=== PATIENT | female | born 1970 | race Two or more races ===

== ENCOUNTER 2017-02-11 07:14 | Emergency (ER) | payer MEDICAID ==
[~2017-02-11] VITALS: Ht 154.9 cm; Wt 63.5 kg
[~2017-02-11 07:14] MED LIST: ASPI81CH43; GEMF600T3; GLIP1TAB38; METF850T; PIOG30TA7; SIMV-8; TRIA25CA
[2017-02-11 07:25] VITALS: BP 153/96
[2017-02-11] MEDS ORDERED: KETOROLAC TROMETH 60MG/2ML VIAL IM ONE (08:45)
[2017-02-11] MEDS ORDERED: methylPREDNISolone SOD SUCC 125 MG/2 ML VL IM ONE (08:45)
== END 2017-02-11 09:31 | disposition home or self-care (01) ==
LOC: ER 07:14
DX: E11.65 Type 2 diabetes mellitus with hyperglycemia (principal); M79.662 Pain in left lower leg; M79.661 Pain in right lower leg; I10 Essential (primary) hypertension; R51 Headache; Z79.4 Long term (current) use of insulin; Z79.82 Long term (current) use of aspirin; E78.5 Hyperlipidemia, unspecified; Z87.440 Personal history of urinary (tract) infections; Z87.891 Personal history of nicotine dependence
CPT/HCPCS: 82962; 96372; 99284; J1885; J2930

== ENCOUNTER 2017-06-07 09:33 | Emergency (ER) | payer MEDICAID ==
[~2017-06-07] VITALS: Ht 157.5 cm; Wt 59.0 kg
[2017-06-07 13:17] VITALS: BP 103/73
[2017-06-07] MEDS ORDERED: CLINDAMYCIN 600 MG/4 ML VL IM ONE (13:30)
[2017-06-07] MEDS ORDERED: HYDROcodone-ACET 5/325MG TAB PO ONE (13:30)
== END 2017-06-07 13:53 | disposition home or self-care (01) ==
LOC: ER 09:33
DX: L02.11 Cutaneous abscess of neck (principal); E11.65 Type 2 diabetes mellitus with hyperglycemia; B99.8 Other infectious disease; Z79.4 Long term (current) use of insulin; E78.5 Hyperlipidemia, unspecified; Z87.891 Personal history of nicotine dependence; Z87.440 Personal history of urinary (tract) infections
CPT/HCPCS: 96372

== ENCOUNTER 2017-12-25 00:47 | Inpatient (IN) | payer SELFPAY ==
[~2017-12-25] VITALS: Ht 154.9 cm; Wt 69.0 kg
[~2017-12-25 00:47] MED LIST changes: -ASPI81CH43; +ASPI81CH43 PO; -GEMF600T3; +GEMF600T3 PO; -PIOG30TA7; +PIOG30TA8
[2017-12-25 01:29] LABS: Basophils # (auto) 0 uL; Basophils % (auto) 0.4 % (0.0-2.0); Eosinophils # (auto) 0.1 uL; Eosinophils % (auto) 0.9 % (0.0-7.0); Hematocrit 38.4 % (36.0-46.0); Hemoglobin 12.6 g/dL (12.2-16.2); Lymphocytes # (auto) 2.8 uL; Lymphocytes % (auto) 31.8 % (10.0-50.0); Mean Corpuscular Hemoglobin 27.1 pg (28.0-32.0); Mean Corpuscular Hgb Conc. 32.8 g/dL (32.0-36.0); Mean Corpuscular Volume 82.6 fL (80.0-100.0); Monocytes # (auto) 0.4 uL; Monocytes % (auto) 4.7 % (0.0-12.0); Neutrophils # (auto) 5.4 uL; Neutrophils % (auto) 62.2 % (37.0-80.0); Nucleated Red Blood Cells % 0.1 %; Platelet Count (auto) 301 10^3/uL (140-450); Red Blood Cells 4.65 10^6/uL (4.0-5.20); Red Cell Distribution Width 14.7 % (11.8-14.3); White Blood Cell 8.7 10^3/uL (4.4-10.8)
[2017-12-25 01:32] LABS: Alanine Aminotransferase 18 U/L (13-56); Anion Gap 12 (5-15); Aspartate Aminotransferase 12 U/L (15-37); BUN/Creatinine Ratio 20.8; Blood Urea Nitrogen 26 mg/dL (7-18); Calcium 9.1 mg/dL (8.5-10.1); Carbon Dioxide 26 mmol/L (21-32); Chloride 91 mmol/L (98-107); GFR African American 59 mL/min; GFR Non-African American 49 mL/min; Potassium 3.9 mmol/L (3.5-5.1); Sodium 129 mmol/L (136-145)
[2017-12-25 01:36] LABS: Alkaline Phosphatase 136 U/L (45-117); Bilirubin, Total 0.4 mg/dL (0.2-1.0); Glucose 582 mg/dL (74-106); Total Protein 7.7 g/dL (6.4-8.2)
[2017-12-25] MEDS ORDERED: InsuLIN REG 1unit/0.01ml Soln (100units/ml) IV ONE (02:15)
[2017-12-25] MEDS ORDERED: SODIUM CHLORIDE 0.9% 2,000 ML IV ONE (02:15)
[2017-12-25] MEDS ORDERED: KETOROLAC TROMETH 30 MG/ML 1ML VIAL IV ONE (02:30)
[2017-12-25] MEDS ORDERED: ONDANSETRON HCL 4 MG/2 ML VIAL IV ONE (02:30)
[2017-12-25 02:41] LABS: Urine Bacteria FEW /hpf (None Seen); Urine Blood Negative /uL (Negative); Urine Specific Gravity 1.015 (1.001-1.035); Urine WBC 17 /hpf (0 - 5)
[2017-12-25] MEDS ORDERED: SODIUM CHLORIDE 0.9% 1,000 ML IV ONE (02:45)
[2017-12-25] MEDS ORDERED: LEVOFLOXACIN 750MG 150 ML IV ONE (03:00)
[2017-12-25] MEDS ORDERED: SODIUM CHLORIDE 0.9% 1,000 ML IV SCH (06:45)
[2017-12-25] MEDS ORDERED: TEMAZEPAM 15 MG CAP PO PRN (06:45)
[2017-12-25] MEDS ORDERED: ACETAMINOPHEN 325 MG TAB PO PRN (06:45)
[2017-12-25] MEDS ORDERED: DEXTROSE (50%) 50ML SYRG IV PRN ×2 (06:45→14:00)
[2017-12-25] MEDS: MORPHINE SULFATE 4 MG/ML SYR/VIAL IV PRN ×2 (07:03→18:03)
[2017-12-25] MEDS: ACCU-CHEK COMFORT CURVE STRIP VI SCH ×4 (07:47→21:56)
[2017-12-25] MEDS: InsuLIN REG 1unit/0.01ml Soln (100units/ml) SC SCH ×4 (07:51→21:56)
[2017-12-25] MEDS ORDERED: INSLISPI SC ×2 (08:41)
[2017-12-25 09:00] VITALS: BP 100/63
[2017-12-25] MEDS: cefTRIAXone 1GM/10ml IVPUSH 10 ML IV SCH (09:53)
[2017-12-25] MEDS: ENOXAPARIN SOD 40 MG/0.4 ML SYRINGE SC SCH (09:57)
[2017-12-25] MEDS: TRIAMTERENE/HCTZ 37.5/25 MG CAP PO SCH (09:58)
[2017-12-25] MEDS: LISINOPRIL 5 MG TAB PO SCH (09:59)
[2017-12-25] MEDS: GEMFIBROZIL 600 MG TAB PO SCH ×2 (09:59→21:56)
[2017-12-25] MEDS: FAMOTIDINE 20 MG TAB PO SCH (10:00)
[2017-12-25 13:02] VITALS: BP 129/71
[2017-12-25] MEDS: HYDROcodone-ACET 5/325MG TAB PO PRN ×2 (16:53→23:57)
[2017-12-25 17:00] VITALS: BP 71/45
[2017-12-25] MEDS: SODIUM CHLORIDE 0.9% 1,000 ML IV SCH ×3 (17:13→21:00)
[2017-12-25 21:48] VITALS: BP 80/55
[2017-12-25] MEDS: ATORVASTATIN 20 MG TAB PO SCH (21:56)
[2017-12-26 05:00] VITALS: BP 80/55
[2017-12-26] MEDS: MORPHINE SULFATE 4 MG/ML SYR/VIAL IV PRN (06:00)
[2017-12-26 06:23] LABS: Basophils # (auto) 0.1 uL; Basophils % (auto) 0.6 % (0.0-2.0); Eosinophils # (auto) 0.3 uL; Eosinophils % (auto) 1.9 % (0.0-7.0); Hematocrit 29.5 % (36.0-46.0); Hemoglobin 9.9 g/dL (12.2-16.2); Lymphocytes # (auto) 2.2 uL; Lymphocytes % (auto) 14.5 % (10.0-50.0); Mean Corpuscular Hemoglobin 27.9 pg (28.0-32.0); Mean Corpuscular Hgb Conc. 33.5 g/dL (32.0-36.0); Mean Corpuscular Volume 83.2 fL (80.0-100.0); Monocytes # (auto) 0.9 uL; Neutrophils # (auto) 11.4 uL; Nucleated Red Blood Cells % 0.1 %; Platelet Count (auto) 172 10^3/uL (140-450); Red Blood Cells 3.55 10^6/uL (4.0-5.20); Red Cell Distribution Width 15.2 % (11.8-14.3); White Blood Cell 14.8 10^3/uL (4.4-10.8)
[2017-12-26 06:27] LABS: BUN/Creatinine Ratio 27.7; Calcium 7.6 mg/dL (8.5-10.1); Potassium 3.8 mmol/L (3.5-5.1)
[2017-12-26 06:29] LABS: Bilirubin, Total 0.3 mg/dL (0.2-1.0); Total Protein 6.1 g/dL (6.4-8.2)
[2017-12-26] MEDS: ACCU-CHEK COMFORT CURVE STRIP VI SCH ×4 (07:13→22:00)
[2017-12-26] MEDS: InsuLIN REG 1unit/0.01ml Soln (100units/ml) SC SCH ×4 (07:19→22:00)
[2017-12-26] MEDS: cefTRIAXone 1GM/10ml IVPUSH 10 ML IV SCH (08:59)
[2017-12-26 09:00] VITALS: BP 90/59
[2017-12-26] MEDS: GEMFIBROZIL 600 MG TAB PO SCH ×2 (09:32→21:09)
[2017-12-26] MEDS: FAMOTIDINE 20 MG TAB PO SCH ×2 (09:32→21:08)
[2017-12-26] MEDS: ENOXAPARIN SOD 40 MG/0.4 ML SYRINGE SC SCH (09:32)
[2017-12-26] MEDS: TRIAMTERENE/HCTZ 37.5/25 MG CAP PO SCH (10:00)
[2017-12-26] MEDS: LISINOPRIL 5 MG TAB PO SCH (10:00)
[2017-12-26] MEDS: SODIUM CHLORIDE 0.9% 1,000 ML IV SCH ×3 (11:00→20:45)
[2017-12-26 12:39] VITALS: BP 89/61
[2017-12-26] MEDS ORDERED: SODIUM CHLORIDE 0.9% 1,000 ML IV ONE (12:45)
[2017-12-26] MEDS ORDERED: LEVOFLOXACIN 500MG 100 ML IV ONE (12:45)
[2017-12-26 17:10] VITALS: BP 111/78
[2017-12-26 20:00] VITALS: BP 90/59
[2017-12-26] MEDS: HYDROcodone-ACET 7.5/325MG TAB PO PRN (21:10)
[2017-12-26] MEDS: ATORVASTATIN 20 MG TAB PO SCH (21:10)
[2017-12-26 21:59] VITALS: BP 137/86
[2017-12-27] MEDS: SODIUM CHLORIDE 0.9% 1,000 ML IV SCH ×3 (02:02→20:03)
[2017-12-27 05:35] VITALS: BP 140/58
[2017-12-27] MEDS ORDERED: metroNIDAZOLE 500MG/100ML 100 ML IV ONE (06:30)
[2017-12-27] MEDS: InsuLIN REG 1unit/0.01ml Soln (100units/ml) SC SCH ×4 (07:06→21:38)
[2017-12-27] MEDS: ACCU-CHEK COMFORT CURVE STRIP VI SCH ×4 (07:06→21:39)
[2017-12-27] MEDS: cefTRIAXone 1GM/10ml IVPUSH 10 ML IV SCH (08:55)
[2017-12-27 09:00] VITALS: BP 150/85
[2017-12-27 09:11] LABS: Basophils # (auto) 0 uL; Basophils % (auto) 0.4 % (0.0-2.0); Eosinophils # (auto) 0.1 uL; Lymphocytes # (auto) 2.6 uL; Mean Corpuscular Hemoglobin 26.9 pg (28.0-32.0); Monocytes # (auto) 0.6 uL; Red Blood Cells 4.08 10^6/uL (4.0-5.20); Red Cell Distribution Width 15.1 % (11.8-14.3)
[2017-12-27 09:12] LABS: Eosinophils % (auto) 0.9 % (0.0-7.0); Lymphocytes % (auto) 21.1 % (10.0-50.0); Mean Corpuscular Hgb Conc. 32.3 g/dL (32.0-36.0); Mean Corpuscular Volume 83.2 fL (80.0-100.0); Neutrophils # (auto) 8.9 uL; Neutrophils % (auto) 72.6 % (37.0-80.0); Platelet Count (auto) 204 10^3/uL (140-450); White Blood Cell 12.3 10^3/uL (4.4-10.8)
[2017-12-27] MEDS: ONDANSETRON HCL 4 MG/2 ML VIAL IV PRN ×2 (10:07→21:39)
[2017-12-27] MEDS: ENOXAPARIN SOD 40 MG/0.4 ML SYRINGE SC SCH (10:24)
[2017-12-27] MEDS: LEVOFLOXACIN 500MG 100 ML IV SCH (10:24)
[2017-12-27] MEDS: TRIAMTERENE/HCTZ 37.5/25 MG CAP PO SCH (10:25)
[2017-12-27] MEDS: GEMFIBROZIL 600 MG TAB PO SCH ×2 (10:25→21:38)
[2017-12-27] MEDS: LISINOPRIL 5 MG TAB PO SCH (10:25)
[2017-12-27 13:00] VITALS: BP 157/99
[2017-12-27] MEDS: metroNIDAZOLE 500MG/100ML 100 ML IV SCH ×2 (14:16→21:38)
[2017-12-27 17:00] VITALS: BP 127/87
[2017-12-27] MEDS: ATORVASTATIN 20 MG TAB PO SCH (21:38)
[2017-12-27] MEDS: MORPHINE SULFATE 4 MG/ML SYR/VIAL IV PRN (21:39)
[2017-12-27 22:00] VITALS: BP 133/88
[2017-12-28] MEDS: SODIUM CHLORIDE 0.9% 1,000 ML IV SCH ×3 (04:21→17:55)
[2017-12-28] MEDS: metroNIDAZOLE 500MG/100ML 100 ML IV SCH ×3 (05:37→21:41)
[2017-12-28 05:39] VITALS: BP 106/66
[2017-12-28] MEDS: InsuLIN REG 1unit/0.01ml Soln (100units/ml) SC SCH ×4 (06:30→21:49)
[2017-12-28] MEDS: ACCU-CHEK COMFORT CURVE STRIP VI SCH ×4 (06:30→21:48)
[2017-12-28 09:00] VITALS: BP 114/73
[2017-12-28] MEDS: TRIAMTERENE/HCTZ 37.5/25 MG CAP PO SCH (09:24)
[2017-12-28] MEDS: cefTRIAXone 1GM/10ml IVPUSH 10 ML IV SCH (09:24)
[2017-12-28] MEDS: LEVOFLOXACIN 500MG 100 ML IV SCH (09:24)
[2017-12-28] MEDS: FAMOTIDINE 20 MG TAB PO SCH (09:24)
[2017-12-28] MEDS: GEMFIBROZIL 600 MG TAB PO SCH ×2 (09:24→21:41)
[2017-12-28] MEDS: ENOXAPARIN SOD 40 MG/0.4 ML SYRINGE SC SCH (09:25)
[2017-12-28] MEDS: LISINOPRIL 5 MG TAB PO SCH (09:25)
[2017-12-28 13:00] VITALS: BP 126/81
[2017-12-28 13:40] LABS: INR 1.01 (0.9-1.15); Partial Thromboplastin Time 28.2 sec (22.64-33.71)
[2017-12-28] MEDS: ONDANSETRON HCL 4 MG/2 ML VIAL IV PRN (17:55)
[2017-12-28 18:05] VITALS: BP 130/81
[2017-12-28] MEDS: ATORVASTATIN 20 MG TAB PO SCH (21:40)
[2017-12-28] MEDS: MORPHINE SULFATE 4 MG/ML SYR/VIAL IV PRN (21:44)
[2017-12-28 22:36] VITALS: BP 143/93
[2017-12-29 05:24] VITALS: BP 102/68
[2017-12-29] MEDS: metroNIDAZOLE 500MG/100ML 100 ML IV SCH ×3 (05:26→21:41)
[2017-12-29] MEDS: SODIUM CHLORIDE 0.9% 1,000 ML IV SCH ×3 (05:27→20:45)
[2017-12-29 05:34] LABS: Basophils # (auto) 0 uL; Basophils % (auto) 0.4 % (0.0-2.0); Eosinophils # (auto) 0.1 uL; Eosinophils % (auto) 1.2 % (0.0-7.0); Hematocrit 34.8 % (36.0-46.0); Hemoglobin 11.4 g/dL (12.2-16.2); Lymphocytes # (auto) 1.8 uL; Mean Corpuscular Hemoglobin 27.2 pg (28.0-32.0); Mean Corpuscular Hgb Conc. 32.9 g/dL (32.0-36.0); Mean Corpuscular Volume 82.9 fL (80.0-100.0); Monocytes # (auto) 0.7 uL; Neutrophils # (auto) 5.5 uL; Neutrophils % (auto) 67.4 % (37.0-80.0); Nucleated Red Blood Cells % 0.1 %; Platelet Count (auto) 246 10^3/uL (140-450); Red Blood Cells 4.19 10^6/uL (4.0-5.20); Red Cell Distribution Width 14.5 % (11.8-14.3); White Blood Cell 8.1 10^3/uL (4.4-10.8)
[2017-12-29 05:56] LABS: Albumin 2.1 g/dL (3.4-5.0); BUN/Creatinine Ratio 14.9; Bilirubin, Total 0.4 mg/dL (0.2-1.0); Calcium 8.4 mg/dL (8.5-10.1); Potassium 3.9 mmol/L (3.5-5.1); Total Protein 6.3 g/dL (6.4-8.2)
[2017-12-29] MEDS: InsuLIN REG 1unit/0.01ml Soln (100units/ml) SC SCH ×4 (06:19→21:42)
[2017-12-29] MEDS: ACCU-CHEK COMFORT CURVE STRIP VI SCH ×4 (06:20→21:42)
[2017-12-29] MEDS ORDERED: ceFAZolin 1GM/100ML 100 ML IV ONE (06:51)
[2017-12-29] MEDS ORDERED: LIDOCAINE 1% (LOCAL ANESTH.) PF 5ml SDV ONE (07:13)
[2017-12-29] MEDS ORDERED: SUCCINYLCHOLINE CHLORIDE 20 MG/ML 10ML VIAL IV ONE (07:14)
[2017-12-29] MEDS ORDERED: MIDAZOLAM HCL 1MG/1ML-2 ML VIAL ONE (07:15)
[2017-12-29] MEDS ORDERED: PROPOFOL 10 MG/ML 20 ML IV ONE (07:21)
[2017-12-29] MEDS ORDERED: ROCURONIUM 10MG/ML 10ML VIAL IV ONE (07:21)
[2017-12-29] MEDS ORDERED: fentaNYL CITRATE 100 MCG/2 ML VL ONE (07:31)
[2017-12-29] MEDS ORDERED: POVIDONE IODINE 10 % TOPICAL OINT 30GM TOP ONE (07:32)
[2017-12-29] MEDS ORDERED: NALOXONE HCL 0.4 MG/ML VIAL IV PRN (07:45)
[2017-12-29] MEDS ORDERED: ONDANSETRON HCL 4 MG/2 ML VIAL IV ONE (07:45)
[2017-12-29] MEDS ORDERED: ACCU-CHEK COMFORT CURVE STRIP VI ONE (07:45)
[2017-12-29] MEDS ORDERED: GLYCOPYRROLATE 0.2 MG/ML 1ML VIAL ONE (07:50)
[2017-12-29] MEDS ORDERED: NEOSTIGMINE 1 MG/ML INJ (10mg/10ML VIAL) ONE (07:50)
[2017-12-29] MEDS ORDERED: KETOROLAC TROMETH 30 MG/ML 1ML VIAL ONE (07:53)
[2017-12-29] MEDS: MORPHINE SULFATE 4 MG/ML SYR/VIAL IV PRN ×4 (08:14→20:09)
[2017-12-29] MEDS: LEVOFLOXACIN 500MG 100 ML IV SCH (10:06)
[2017-12-29] MEDS: ENOXAPARIN SOD 40 MG/0.4 ML SYRINGE SC SCH (10:06)
[2017-12-29] MEDS: cefTRIAXone 1GM/10ml IVPUSH 10 ML IV SCH (10:06)
[2017-12-29] MEDS: GEMFIBROZIL 600 MG TAB PO SCH ×2 (10:09→21:42)
[2017-12-29] MEDS: FAMOTIDINE 20 MG TAB PO SCH (10:09)
[2017-12-29] MEDS: LISINOPRIL 5 MG TAB PO SCH (10:09)
[2017-12-29] MEDS: TRIAMTERENE/HCTZ 37.5/25 MG CAP PO SCH (10:09)
[2017-12-29] MEDS: HYDROcodone-ACET 7.5/325MG TAB PO PRN ×2 (10:11→14:36)
[2017-12-29 12:47] VITALS: BP 105/76
[2017-12-29 16:32] VITALS: BP 110/74
[2017-12-29] MEDS ORDERED: METF-929 PO (17:17)
[2017-12-29] MEDS ORDERED: GLIP-115 PO (17:17)
[2017-12-29] MEDS ORDERED: HYDR25TA4 PO (17:17)
[2017-12-29] MEDS ORDERED: INSLANTI SC (17:17)
[2017-12-29] MEDS ORDERED: FENO1TAB42 PO (17:22)
[2017-12-29] MEDS ORDERED: ATOR1TAB PO (17:22)
[2017-12-29] MEDS ORDERED: LISI-275 PO (17:22)
[2017-12-29] MEDS: ONDANSETRON HCL 4 MG/2 ML VIAL IV PRN (20:09)
[2017-12-29] MEDS: ATORVASTATIN 20 MG TAB PO SCH (21:41)
[2017-12-29 22:00] VITALS: BP 119/80
[2017-12-30] MEDS: SODIUM CHLORIDE 0.9% 1,000 ML IV SCH ×3 (05:24→11:35)
[2017-12-30] MEDS: metroNIDAZOLE 500MG/100ML 100 ML IV SCH ×2 (05:31→14:00)
[2017-12-30 05:33] VITALS: BP 108/74
[2017-12-30 05:41] LABS: Platelet Count (auto) 254 10^3/uL (140-450)
[2017-12-30 05:44] LABS: Hematocrit 32.9 % (36.0-46.0); Hemoglobin 10.8 g/dL (12.2-16.2); Mean Corpuscular Hemoglobin 27.4 pg (28.0-32.0); Mean Corpuscular Hgb Conc. 32.9 g/dL (32.0-36.0); Mean Corpuscular Volume 83.4 fL (80.0-100.0); Red Blood Cells 3.94 10^6/uL (4.0-5.20); White Blood Cell 9.1 10^3/uL (4.4-10.8)
[2017-12-30 05:51] LABS: Basophils % (manual) 0 (0.0-2.0); Blast Cells 0; Eosinophils % (manual) 0 (0-7); Metamyelocytes % 0; Myelocytes % 0; Promyelocytes % 0; Reactive Lymphocytes 0
[2017-12-30 06:10] LABS: BUN/Creatinine Ratio 12.5; Bilirubin, Total 0.3 mg/dL (0.2-1.0); Potassium 3.7 mmol/L (3.5-5.1); Total Protein 5.9 g/dL (6.4-8.2)
[2017-12-30] MEDS: ACCU-CHEK COMFORT CURVE STRIP VI SCH ×2 (06:20→11:34)
[2017-12-30] MEDS: InsuLIN REG 1unit/0.01ml Soln (100units/ml) SC SCH ×2 (06:20→11:34)
[2017-12-30 06:56] LABS: Band Neutrophils % (manual) 1; Lymphocytes % (manual) 25 (10.0-50.0); Monocytes % (manual) 13 (0-12)
[2017-12-30] MEDS: MORPHINE SULFATE 4 MG/ML SYR/VIAL IV PRN (07:51)
[2017-12-30 08:53] VITALS: BP 136/84
[2017-12-30] MEDS: ENOXAPARIN SOD 40 MG/0.4 ML SYRINGE SC SCH (09:36)
[2017-12-30] MEDS: TRIAMTERENE/HCTZ 37.5/25 MG CAP PO SCH (09:36)
[2017-12-30] MEDS: GEMFIBROZIL 600 MG TAB PO SCH (09:36)
[2017-12-30] MEDS: LISINOPRIL 5 MG TAB PO SCH (09:36)
[2017-12-30] MEDS: LEVOFLOXACIN 500MG 100 ML IV SCH (09:37)
[2017-12-30] MEDS: FAMOTIDINE 20 MG TAB PO SCH (09:37)
[2017-12-30] MEDS ORDERED: HYDR-4683 PO (09:53)
[2017-12-30] MEDS ORDERED: AMOX250C3 PO (09:53)
[2017-12-30] MEDS ORDERED: IBUP800T24 PO (09:53)
[2017-12-30] MEDS ORDERED: DULO20CA PO (09:53)
[2017-12-30] MEDS ORDERED: AMIT25TA9 PO (09:53)
[2017-12-30 12:40] VITALS: BP 137/83
[2017-12-30] MEDS: HYDROcodone-ACET 7.5/325MG TAB PO PRN (14:31)
[2017-12-30 16:45] VITALS: BP 151/97
== END 2017-12-30 18:00 | disposition home or self-care (01) | DRG 854 ==
LOC: EDBD 00:47 → ER 00:47 → OVERFLOW 00:48 → WEST WING 08:02
PROVIDERS: ADMIT Nurse Practitioner; ATTEND Family Medicine
PROC: 0FT44ZZ Resection of Gallbladder, Percutaneous Endoscopic Approach (ICD-10-PCS; principal; 2017-12-29 07:14)
DX: A41.9 Sepsis, unspecified organism (principal); K80.00 Calculus of gallbladder with acute cholecystitis without obstruction; E87.1 Hypo-osmolality and hyponatremia; N12 Tubulo-interstitial nephritis, not specified as acute or chronic; I70.90 Unspecified atherosclerosis; E11.65 Type 2 diabetes mellitus with hyperglycemia; E78.00 Pure hypercholesterolemia, unspecified; E86.0 Dehydration; I10 Essential (primary) hypertension; K42.9 Umbilical hernia without obstruction or gangrene; K59.00 Constipation, unspecified; Z79.4 Long term (current) use of insulin; Z83.3 Family history of diabetes mellitus; Z87.891 Personal history of nicotine dependence; Z91.14 Patient's other noncompliance with medication regimen
CPT/HCPCS: 36415; 70450; 71045; 74176; 76705; 78226; 80053; 81001; 81025; 82010; 82962; 83036; 83605; 83930; 84484; 85007; 85025; 85027; 85610; 85730; 86850; 86900; 86901; 87040; 87086; 87088; 87186; 93005; 96361; 96365; 96375; 97530; J0330; J0690; J1815; J1885; J1956; J2250; J2405; J2704; J3490

== ENCOUNTER 2018-01-23 07:00 | Emergency (ER) | payer SELFPAY ==
[~2018-01-23] VITALS: Ht 157.5 cm; Wt 59.0 kg
[~2018-01-23 07:00] MED LIST changes: +AMIT25TA9 PO; +AMOX250C3 PO; +ATOR1TAB PO; +DULO20CA PO; +FENO1TAB42 PO; +GLIP-115 PO; -GLIP1TAB38; +HYDR-4683 PO; +HYDR25TA4 PO; +IBUP800T24 PO; +INSLANTI SC; +INSLISPI SC; +LISI-275 PO; +METF-929 PO; -METF850T; -PIOG30TA8; -SIMV-8; -TRIA25CA
[2018-01-23 07:49] VITALS: BP 109/84
[2018-01-23 07:59] LABS: Basophils # (auto) 0 uL; Basophils % (auto) 0.4 % (0.0-2.0); Eosinophils # (auto) 0.3 uL; Eosinophils % (auto) 2.7 % (0.0-7.0); Hemoglobin 13.4 g/dL (12.2-16.2); Lymphocytes # (auto) 4.2 uL; Lymphocytes % (auto) 44.8 % (10.0-50.0); Mean Corpuscular Hemoglobin 27.3 pg (28.0-32.0); Mean Corpuscular Hgb Conc. 32.7 g/dL (32.0-36.0); Mean Corpuscular Volume 83.4 fL (80.0-100.0); Monocytes # (auto) 0.6 uL; Neutrophils # (auto) 4.3 uL; Neutrophils % (auto) 46.1 % (37.0-80.0); Nucleated Red Blood Cells % 0.1 %; Platelet Count (auto) 285 10^3/uL (140-450); Red Blood Cells 4.92 10^6/uL (4.0-5.20); Red Cell Distribution Width 14.6 % (11.8-14.3); White Blood Cell 9.3 10^3/uL (4.4-10.8)
[2018-01-23] MEDS ORDERED: HYDROcodone-ACET 10/325MG TAB PO ONE (08:00)
[2018-01-23 08:04] LABS: Urine Bacteria FEW /hpf (None Seen); Urine Blood Negative /uL (Negative); Urine Specific Gravity 1.012 (1.001-1.035); Urine WBC 98 /hpf (0 - 5)
[2018-01-23 08:35] LABS: Albumin 3.4 g/dL (3.4-5.0); Calcium 9.7 mg/dL (8.5-10.1); Potassium 4.1 mmol/L (3.5-5.1)
[2018-01-23 08:41] LABS: BUN/Creatinine Ratio 23.1; Bilirubin, Total 0.4 mg/dL (0.2-1.0); Total Protein 7.8 g/dL (6.4-8.2)
== END 2018-01-23 10:15 | disposition home or self-care (01) ==
LOC: ER 07:00
DX: N39.0 Urinary tract infection, site not specified (principal); E78.5 Hyperlipidemia, unspecified; I10 Essential (primary) hypertension; E11.9 Type 2 diabetes mellitus without complications; Z79.4 Long term (current) use of insulin; Z79.82 Long term (current) use of aspirin; Z87.891 Personal history of nicotine dependence
CPT/HCPCS: 36415; 74176; 80053; 81001; 83605; 85025; 94761

== ENCOUNTER 2018-01-29 11:02 | Inpatient (IN) | payer MEDICAID ==
[~2018-01-29] VITALS: Ht 157.5 cm; Wt 66.9 kg
[2018-01-29] MEDS ORDERED: SODIUM CHLORIDE 0.9% 500 ML IVB ONE (11:20)
[2018-01-29] MEDS ORDERED: ONDANSETRON HCL 4 MG/2 ML VIAL IV ONE (11:30)
[2018-01-29] MEDS ORDERED: KETOROLAC TROMETH 30 MG/ML 1ML VIAL IV ONE (11:30)
[2018-01-29 11:42] LABS: Hematocrit 39.8 % (36.0-46.0); Hemoglobin 13.1 g/dL (12.2-16.2); Mean Corpuscular Hemoglobin 27.4 pg (28.0-32.0); Mean Corpuscular Hgb Conc. 32.9 g/dL (32.0-36.0); Mean Corpuscular Volume 83.3 fL (80.0-100.0); Platelet Count (auto) 322 10^3/uL (140-450); Red Blood Cells 4.78 10^6/uL (4.0-5.20); Red Cell Distribution Width 14.7 % (11.8-14.3)
[2018-01-29 11:58] LABS: Band Neutrophils % (manual) 0; Basophils % (manual) 0 (0.0-2.0); Blast Cells 0; Eosinophils % (manual) 7 (0-7); Lymphocytes % (manual) 38 (10.0-50.0); Metamyelocytes % 0; Monocytes % (manual) 1 (0-12); Myelocytes % 0; Promyelocytes % 0; Reactive Lymphocytes 0
[2018-01-29 12:03] LABS: Albumin 3.9 g/dL (3.4-5.0); Bilirubin, Total 0.5 mg/dL (0.2-1.0); Calcium 9.7 mg/dL (8.5-10.1); Magnesium 2.1 mg/dL (1.6-2.6); Potassium 4.4 mmol/L (3.5-5.1); Total Protein 7.7 g/dL (6.4-8.2)
[2018-01-29 13:01] LABS: Urine Bacteria FEW /hpf (None Seen); Urine Blood 2+ /uL (Negative); Urine Specific Gravity 1.009 (1.001-1.035); Urine WBC 94 /hpf (0 - 5); Urine WBC Clumps PRESENT /hpf (None Seen)
[2018-01-29] MEDS ORDERED: TEMAZEPAM 15 MG CAP PO PRN (13:15)
[2018-01-29] MEDS ORDERED: NITROGLYCERIN 0.4 MG SL TAB SL PRN (13:15)
[2018-01-29] MEDS ORDERED: MORPHINE SULFATE 8mg/ml INJ SDV IV PRN (13:15)
[2018-01-29] MEDS ORDERED: LORazepam 0.5 MG TAB PO PRN (13:15)
[2018-01-29] MEDS ORDERED: PROMETHAZINE HCL 25 MG/ML 1ML IV PRN (13:15)
[2018-01-29] MEDS ORDERED: MORPHINE SULF(PF) 0.5MG/ML 10ML VIAL IV PRN (13:15)
[2018-01-29] MEDS ORDERED: ACETAMINOPHEN 500 MG TAB PO PRN (13:15)
[2018-01-29] MEDS ORDERED: cefTRIAXone 1GM/10ml IVPUSH 10 ML IV ONE (13:15)
[2018-01-29] MEDS ORDERED: DEXTROSE (50%) 50ML SYRG IV PRN (13:15)
[2018-01-29] MEDS: SODIUM CHLORIDE 0.9% 1,000 ML IV SCH ×3 (13:22→17:46)
[2018-01-29 13:45] LABS: Amylase 96 U/L (25-115); Lipase 320 U/L (73-393)
[2018-01-29] MEDS: HYDROcodone-ACET 5/325MG TAB PO PRN ×2 (14:15→20:59)
[2018-01-29] MEDS ORDERED: MEPERIDINE HCL (25 MG/ML) 1ML VIAL IV PRN (16:45)
[2018-01-29] MEDS: InsuLIN REG 1unit/0.01ml Soln (100units/ml) SC SCH ×2 (17:00→21:32)
[2018-01-29] MEDS: ACCU-CHEK COMFORT CURVE STRIP VI SCH ×2 (17:00→21:32)
[2018-01-29] MEDS: ATORVASTATIN 20 MG TAB PO SCH (21:54)
[2018-01-29] MEDS: AMITRIPTYLINE HCL 25 MG TAB PO SCH (21:54)
[2018-01-29] MEDS: INSULIN LANTUS (GLARGINE) 1 /0.01ml (100units/ml) SC SCH ×2 (21:55→22:00)
[2018-01-29 22:00] VITALS: BP 132/84
[2018-01-29 23:00] VITALS: BP 132/93
[2018-01-30] VITALS (8 sets, daily range): BP systolic 125–140; BP diastolic 81–107
[2018-01-30 06:12] LABS: Basophils # (auto) 0 uL; Basophils % (auto) 0.7 % (0.0-2.0); Eosinophils # (auto) 1.1 uL; Eosinophils % (auto) 15.2 % (0.0-7.0); Hematocrit 34.6 % (36.0-46.0); Hemoglobin 11.7 g/dL (12.2-16.2); Lymphocytes # (auto) 3.3 uL; Lymphocytes % (auto) 44.8 % (10.0-50.0); Mean Corpuscular Hemoglobin 28.3 pg (28.0-32.0); Mean Corpuscular Hgb Conc. 33.9 g/dL (32.0-36.0); Mean Corpuscular Volume 83.5 fL (80.0-100.0); Monocytes # (auto) 0.4 uL; Monocytes % (auto) 5.4 % (0.0-12.0); Neutrophils # (auto) 2.5 uL; Neutrophils % (auto) 33.9 % (37.0-80.0); Nucleated Red Blood Cells % 0.1 %; Platelet Count (auto) 278 10^3/uL (140-450); Red Blood Cells 4.14 10^6/uL (4.0-5.20); Red Cell Distribution Width 14.8 % (11.8-14.3); White Blood Cell 7.3 10^3/uL (4.4-10.8)
[2018-01-30 06:31] LABS: Albumin 2.9 g/dL (3.4-5.0); Calcium 8.3 mg/dL (8.5-10.1)
[2018-01-30 06:33] LABS: BUN/Creatinine Ratio 24.7
[2018-01-30 06:36] LABS: Bilirubin, Total 0.4 mg/dL (0.2-1.0); Total Protein 6.3 g/dL (6.4-8.2)
[2018-01-30] MEDS: InsuLIN REG 1unit/0.01ml Soln (100units/ml) SC SCH ×4 (07:00→21:48)
[2018-01-30] MEDS: ACCU-CHEK COMFORT CURVE STRIP VI SCH ×4 (07:09→21:47)
[2018-01-30] MEDS: HYDROcodone-ACET 5/325MG TAB PO PRN (07:11)
[2018-01-30] MEDS: DULOXETINE 20 MG PO SCH (10:00)
[2018-01-30] MEDS: Fenofibrate 145MG TAB PO SCH (10:00)
[2018-01-30] MEDS ORDERED: PATIENTS OWN MEDICATION (Atorvastatin Calcium 80 MG) PO SCH (10:00)
[2018-01-30] MEDS: GEMFIBROZIL 600 MG TAB PO SCH (10:42)
[2018-01-30] MEDS: cefTRIAXone 1GM/10ml IVPUSH 10 ML IV SCH (10:42)
[2018-01-30] MEDS: ASPirin 81 mg TAB PO SCH (10:43)
[2018-01-30] MEDS: HCTZ 25 MG TAB PO SCH (10:43)
[2018-01-30] MEDS: PANTOPRAZOLE 40 MG TAB PO SCH (10:44)
[2018-01-30] MEDS: glipiZIDE 5 MG TAB PO SCH (10:54)
[2018-01-30] MEDS: OXYCODONE W/ ACETAMINOPHEN 5/325MG TABLET PO PRN ×2 (13:40→21:47)
[2018-01-30] MEDS: SODIUM CHLORIDE 0.9% 1,000 ML IV SCH ×2 (19:11→22:03)
[2018-01-30] MEDS: AMITRIPTYLINE HCL 25 MG TAB PO SCH (21:47)
[2018-01-30] MEDS: ATORVASTATIN 20 MG TAB PO SCH (21:47)
[2018-01-30] MEDS: INSULIN LANTUS (GLARGINE) 1 /0.01ml (100units/ml) SC SCH (21:47)
[2018-01-31] VITALS (7 sets, daily range): BP systolic 106–151; BP diastolic 63–88
[2018-01-31] MEDS: OXYCODONE W/ ACETAMINOPHEN 5/325MG TABLET PO PRN ×3 (06:23→21:51)
[2018-01-31] MEDS: SODIUM CHLORIDE 0.9% 1,000 ML IV SCH (06:29)
[2018-01-31] MEDS: InsuLIN REG 1unit/0.01ml Soln (100units/ml) SC SCH ×4 (06:30→21:52)
[2018-01-31] MEDS: ACCU-CHEK COMFORT CURVE STRIP VI SCH ×4 (06:30→21:37)
[2018-01-31] MEDS: cefTRIAXone 1GM/10ml IVPUSH 10 ML IV SCH (09:25)
[2018-01-31] MEDS: glipiZIDE 5 MG TAB PO SCH (09:27)
[2018-01-31] MEDS: PANTOPRAZOLE 40 MG TAB PO SCH (09:27)
[2018-01-31] MEDS: ASPirin 81 mg TAB PO SCH (09:28)
[2018-01-31] MEDS: GEMFIBROZIL 600 MG TAB PO SCH (09:28)
[2018-01-31] MEDS: HCTZ 25 MG TAB PO SCH (09:30)
[2018-01-31] MEDS: DULOXETINE 20 MG PO SCH (10:00)
[2018-01-31] MEDS: Fenofibrate 145MG TAB PO SCH (10:00)
[2018-01-31] MEDS ORDERED: LACTULOSE 20Gm/30ML SOLN PO PRN (17:00)
[2018-01-31] MEDS: AMITRIPTYLINE HCL 25 MG TAB PO SCH (21:50)
[2018-01-31] MEDS: ATORVASTATIN 20 MG TAB PO SCH (21:50)
[2018-01-31] MEDS: INSULIN LANTUS (GLARGINE) 1 /0.01ml (100units/ml) SC SCH (21:53)
[2018-01-31] MEDS ORDERED: SENNA 8.6 MG TAB PO SCH (22:00)
[2018-02-01] MEDS: SODIUM CHLORIDE 0.9% 1,000 ML IV SCH ×2 (01:11→02:36)
[2018-02-01 05:45] VITALS: BP 146/80
[2018-02-01 06:03] LABS: Basophils # (auto) 0 uL; Basophils % (auto) 0.6 % (0.0-2.0); Eosinophils # (auto) 0.9 uL; Hemoglobin 12.2 g/dL (12.2-16.2); Lymphocytes # (auto) 3.2 uL; Lymphocytes % (auto) 45.1 % (10.0-50.0); Mean Corpuscular Hemoglobin 28.3 pg (28.0-32.0); Mean Corpuscular Hgb Conc. 33.8 g/dL (32.0-36.0); Mean Corpuscular Volume 83.8 fL (80.0-100.0); Monocytes # (auto) 0.4 uL; Monocytes % (auto) 5.6 % (0.0-12.0); Neutrophils # (auto) 2.5 uL; Neutrophils % (auto) 35.7 % (37.0-80.0); Nucleated Red Blood Cells % 0.1 %; Platelet Count (auto) 278 10^3/uL (140-450); Red Cell Distribution Width 14.7 % (11.8-14.3)
[2018-02-01 06:15] LABS: BUN/Creatinine Ratio 16.7; Calcium 8.5 mg/dL (8.5-10.1); Potassium 4.2 mmol/L (3.5-5.1)
[2018-02-01] MEDS: ACCU-CHEK COMFORT CURVE STRIP VI SCH ×2 (06:46→12:00)
[2018-02-01] MEDS: InsuLIN REG 1unit/0.01ml Soln (100units/ml) SC SCH ×2 (06:47→12:00)
[2018-02-01 07:03] LABS: Alanine Aminotransferase 35 U/L (13-56); Alkaline Phosphatase 69 U/L (45-117); Aspartate Aminotransferase 43 U/L (15-37); Bilirubin, Direct < 0.1 mg/dL (0-0.2); Bilirubin, Total 0.2 mg/dL (0.2-1.0)
[2018-02-01 08:00] VITALS: BP 146/80
[2018-02-01 08:47] VITALS: BP 149/98
[2018-02-01] MEDS: Fenofibrate 145MG TAB PO SCH (09:50)
[2018-02-01] MEDS: PANTOPRAZOLE 40 MG TAB PO SCH (09:50)
[2018-02-01] MEDS: cefTRIAXone 1GM/10ml IVPUSH 10 ML IV SCH (09:50)
[2018-02-01] MEDS: DULOXETINE 20 MG PO SCH (09:50)
[2018-02-01] MEDS: HCTZ 25 MG TAB PO SCH (09:50)
[2018-02-01] MEDS: glipiZIDE 5 MG TAB PO SCH (09:50)
[2018-02-01] MEDS: ASPirin 81 mg TAB PO SCH (09:50)
[2018-02-01] MEDS: GEMFIBROZIL 600 MG TAB PO SCH (09:50)
[2018-02-01] MEDS: OXYCODONE W/ ACETAMINOPHEN 5/325MG TABLET PO PRN (10:05)
[2018-02-01 12:52] VITALS: BP 143/83
[2018-02-01 14:46] VITALS: BP 149/98
== END 2018-02-01 15:45 | disposition home or self-care (01) | DRG 469 ==
LOC: ER 11:02 → TELE 11:03 → TELE-WESTW 20:28
PROVIDERS: ADMIT Internal Medicine; ATTEND Internal Medicine
DX: N17.9 Acute kidney failure, unspecified (principal); E11.40 Type 2 diabetes mellitus with diabetic neuropathy, unspecified; E44.1 Mild protein-calorie malnutrition; E86.0 Dehydration; Z68.27 Body mass index [BMI] 27.0-27.9, adult; E78.5 Hyperlipidemia, unspecified; I10 Essential (primary) hypertension; K42.9 Umbilical hernia without obstruction or gangrene; K59.00 Constipation, unspecified; K57.30 Diverticulosis of large intestine without perforation or abscess without bleeding; R10.9 Unspecified abdominal pain; N83.202 Unspecified ovarian cyst, left side; Z83.3 Family history of diabetes mellitus; Z87.442 Personal history of urinary calculi; Z87.891 Personal history of nicotine dependence; Z90.49 Acquired absence of other specified parts of digestive tract; Z79.899 Other long term (current) drug therapy; Z79.4 Long term (current) use of insulin
CPT/HCPCS: 36415; 74176; 74181; 78226; 80048; 80053; 80076; 81001; 82150; 82962; 83036; 83690; 83735; 85007; 85025; 85027; 87081; 87086; 94761; 96361; 96374; 96375; J1815; J1885; J2405

== ENCOUNTER 2018-05-16 17:42 | Inpatient (IN) | payer MEDICAID ==
[~2018-05-16] VITALS: Ht 157.5 cm; Wt 64.8 kg
[~2018-05-16 17:42] MED LIST changes: -AMOX250C3 PO; -GEMF600T3 PO; +GEMF600T7 PO; -IBUP800T24 PO
[2018-05-16 19:03] LABS: Basophils # (auto) 0 uL; Basophils % (auto) 0.4 % (0.0-2.0); Eosinophils # (auto) 0.3 uL; Eosinophils % (auto) 3.4 % (0.0-7.0); Hematocrit 34.2 % (36.0-46.0); Hemoglobin 11.6 g/dL (12.2-16.2); Lymphocytes % (auto) 38.7 % (10.0-50.0); Mean Corpuscular Hemoglobin 29.9 pg (28.0-32.0); Mean Corpuscular Hgb Conc. 33.9 g/dL (32.0-36.0); Mean Corpuscular Volume 88.4 fL (80.0-100.0); Monocytes # (auto) 0.6 uL; Monocytes % (auto) 5.5 % (0.0-12.0); Neutrophils # (auto) 5.3 uL; Nucleated Red Blood Cells % 0.2 %; Platelet Count (auto) 332 10^3/uL (140-450); Red Blood Cells 3.87 10^6/uL (4.0-5.20); Red Cell Distribution Width 14.7 % (11.8-14.3); White Blood Cell 10.3 10^3/uL (4.4-10.8)
[2018-05-16 19:25] LABS: Alanine Aminotransferase 35 U/L (13-56); Albumin 3.8 g/dL (3.4-5.0); Alkaline Phosphatase 84 U/L (45-117); Anion Gap 7 (5-15); Aspartate Aminotransferase 13 U/L (15-37); BUN/Creatinine Ratio 29.3; Bilirubin, Total 0.3 mg/dL (0.2-1.0); Blood Urea Nitrogen 56 mg/dL (7-18); Calcium 9.2 mg/dL (8.5-10.1); Carbon Dioxide 25 mmol/L (21-32); Chloride 105 mmol/L (98-107); GFR African American 36 mL/min; GFR Non-African American 30 mL/min; Glucose 177 mg/dL (74-106); Magnesium 1.9 mg/dL (1.6-2.6); Potassium 5.1 mmol/L (3.5-5.1); Sodium 137 mmol/L (136-145); Total Protein 7.8 g/dL (6.4-8.2)
[2018-05-16] MEDS ORDERED: ONDANSETRON HCL 4 MG/2 ML VIAL IV ONE (20:30)
[2018-05-16] MEDS ORDERED: MORPHINE SULFATE 4 MG/ML SYR/VIAL IV ONE (20:30)
[2018-05-16] MEDS ORDERED: SODIUM CHLORIDE 0.9% 1,000 ML IV ONE (21:15)
[2018-05-16 22:01] LABS: INR 0.87 (0.9-1.15)
[2018-05-16] MEDS ORDERED: LORazepam 2MG/ML-1ML VIAL IV ONE (23:00)
[2018-05-16] MEDS ORDERED: LORazepam 2MG/ML-1ML VIAL ONE (23:01)
[2018-05-17] MEDS ORDERED: ONDANSETRON HCL 4 MG/2 ML VIAL IV PRN ×2 (05:00→07:30)
[2018-05-17] MEDS ORDERED: ACETAMINOPHEN 500 MG TAB PO PRN ×2 (05:00→07:30)
[2018-05-17] MEDS ORDERED: HYDROcodone-ACET 5/325MG TAB PO PRN (05:00)
[2018-05-17 05:32] LABS: Basophils # (auto) 0 uL; Basophils % (auto) 0.3 % (0.0-2.0); Eosinophils # (auto) 0.4 uL; Eosinophils % (auto) 4.7 % (0.0-7.0); Hematocrit 30.8 % (36.0-46.0); Hemoglobin 10.4 g/dL (12.2-16.2); Lymphocytes # (auto) 3.9 uL; Lymphocytes % (auto) 49.9 % (10.0-50.0); Mean Corpuscular Hemoglobin 30.1 pg (28.0-32.0); Mean Corpuscular Hgb Conc. 33.7 g/dL (32.0-36.0); Mean Corpuscular Volume 89.2 fL (80.0-100.0); Monocytes # (auto) 0.5 uL; Neutrophils # (auto) 3.1 uL; Neutrophils % (auto) 39.1 % (37.0-80.0); Nucleated Red Blood Cells % 0.1 %; Platelet Count (auto) 271 10^3/uL (140-450); Red Blood Cells 3.45 10^6/uL (4.0-5.20); Red Cell Distribution Width 14.7 % (11.8-14.3); White Blood Cell 7.8 10^3/uL (4.4-10.8)
[2018-05-17 05:46] LABS: BUN/Creatinine Ratio 44.7; Calcium 8.3 mg/dL (8.5-10.1); Potassium 4.5 mmol/L (3.5-5.1)
[2018-05-17] MEDS ORDERED: SENN1TAB14 PO (08:21)
[2018-05-17] MEDS ORDERED: DULO60CA PO (08:23)
[2018-05-17] MEDS ORDERED: ATOR1TAB PO (08:23)
[2018-05-17] MEDS ORDERED: RIV15T PO (08:23)
[2018-05-17] MEDS ORDERED: GABA300C10 PO (08:23)
[2018-05-17] MEDS ORDERED: VANCOMYCIN 1GM/250ML 250 ML IV SCH (09:00)
[2018-05-17] MEDS: PANTOPRAZOLE 40 MG TAB PO SCH (11:34)
[2018-05-17] MEDS: LISINOPRIL 5 MG TAB PO SCH (11:34)
[2018-05-17] MEDS: HYDROcodone-ACET 5/325MG TAB PO PRN ×2 (11:35→18:12)
[2018-05-17 11:59] VITALS: BP 139/88
[2018-05-17] MEDS ORDERED: DEXTROSE (50%) 50ML SYRG IV PRN (14:15)
[2018-05-17] MEDS: SODIUM CHLORIDE 0.9% 1,000 ML IV SCH (14:15)
[2018-05-17 16:49] VITALS: BP 109/73
[2018-05-17 17:27] LABS: % Iron Saturation 29.8 % (15-50)
[2018-05-17] MEDS: ACCU-CHEK COMFORT CURVE STRIP VI SCH ×2 (17:31→21:21)
[2018-05-17] MEDS: InsuLIN REG 1unit/0.01ml Soln (100units/ml) SC SCH ×2 (18:00→21:21)
[2018-05-17] MEDS: RIVAROXABAN 20 MG TAB PO SCH (18:13)
[2018-05-17 20:00] VITALS: BP 135/90
[2018-05-17 21:03] VITALS: BP 135/90
[2018-05-17] MEDS: AMITRIPTYLINE HCL 25 MG TAB PO SCH (21:19)
[2018-05-17] MEDS: GABAPENTIN 300 MG CAP PO SCH (21:20)
[2018-05-17] MEDS: ATORVASTATIN 20 MG TAB PO SCH (21:20)
[2018-05-17] MEDS: INSULIN LANTUS (GLARGINE) 1 /0.01ml (100units/ml) SC SCH (21:21)
[2018-05-17] MEDS ORDERED: GABAPENTIN 300 MG CAP PO SCH (22:00)
[2018-05-17 22:12] LABS: Urine Bacteria FEW /hpf (None Seen); Urine Blood Negative /uL (Negative); Urine Specific Gravity 1.007 (1.001-1.035); Urine WBC 5 /hpf (0 - 5)
[2018-05-17 22:27] LABS: Alcohol, Urine < 3.0 mg/dL (0-5); Amphetamine Screen, Urine NEGATIVE (NEGATIVE); Barbiturate Scree,Urine NEGATIVE (NEGATIVE); Benzodiazephine Screen, Urine NEGATIVE (NEGATIVE); Cannabinoid Screen, Urine NEGATIVE (NEGATIVE); Cocaine Screen, Urine NEGATIVE (NEGATIVE); Opiate Scree,Urine NEGATIVE (NEGATIVE); Phencyclidine Screen, Urine NEGATIVE (NEGATIVE)
[2018-05-18 05:47] VITALS: BP 82/61
[2018-05-18] MEDS: GABAPENTIN 300 MG CAP PO SCH ×3 (05:56→21:32)
[2018-05-18] MEDS: SODIUM CHLORIDE 0.9% 1,000 ML IV SCH ×2 (06:10→23:21)
[2018-05-18] MEDS: InsuLIN REG 1unit/0.01ml Soln (100units/ml) SC SCH ×4 (06:10→21:47)
[2018-05-18] MEDS: ACCU-CHEK COMFORT CURVE STRIP VI SCH ×4 (06:11→21:48)
[2018-05-18 06:37] LABS: Basophils # (auto) 0 uL; Basophils % (auto) 0.5 % (0.0-2.0); Eosinophils # (auto) 0.3 uL; Eosinophils % (auto) 3.8 % (0.0-7.0); Hematocrit 33.6 % (36.0-46.0); Hemoglobin 11.4 g/dL (12.2-16.2); Lymphocytes # (auto) 3.2 uL; Lymphocytes % (auto) 44.6 % (10.0-50.0); Mean Corpuscular Hemoglobin 30.3 pg (28.0-32.0); Mean Corpuscular Hgb Conc. 33.9 g/dL (32.0-36.0); Mean Corpuscular Volume 89.3 fL (80.0-100.0); Monocytes # (auto) 0.5 uL; Monocytes % (auto) 6.8 % (0.0-12.0); Neutrophils # (auto) 3.1 uL; Neutrophils % (auto) 44.3 % (37.0-80.0); Nucleated Red Blood Cells % 0.1 %; Platelet Count (auto) 295 10^3/uL (140-450); Red Blood Cells 3.76 10^6/uL (4.0-5.20); Red Cell Distribution Width 15.1 % (11.8-14.3); White Blood Cell 7.1 10^3/uL (4.4-10.8)
[2018-05-18 06:53] LABS: BUN/Creatinine Ratio 25.4; Calcium 9.6 mg/dL (8.5-10.1); Magnesium 1.8 mg/dL (1.6-2.6); Potassium 4.2 mmol/L (3.5-5.1)
[2018-05-18] MEDS: HYDROcodone-ACET 5/325MG TAB PO PRN ×4 (08:19→21:31)
[2018-05-18 08:59] VITALS: BP 84/51
[2018-05-18] MEDS ORDERED: LORazepam 2MG/ML-1ML VIAL IV ONE (10:00)
[2018-05-18] MEDS: LISINOPRIL 5 MG TAB PO SCH (10:00)
[2018-05-18 10:56] LABS: Folate (Folic Acid) > 24.00 ng/mL (5.38-24)
[2018-05-18] MEDS ORDERED: GABA300C10 PO (11:10)
[2018-05-18] MEDS: PANTOPRAZOLE 40 MG TAB PO SCH (11:51)
[2018-05-18] MEDS: DULoxetine HCL 30 MG CAP PO SCH (11:51)
[2018-05-18] MEDS ORDERED: MAGNESIUM SULFATE 1GM/100ML 100 ML IV ONE (12:30)
[2018-05-18 13:59] VITALS: BP 100/62
[2018-05-18] MEDS ORDERED: CIPR-217 PO (14:31)
[2018-05-18 16:45] VITALS: BP 126/82
[2018-05-18] MEDS: RIVAROXABAN 20 MG TAB PO SCH (18:42)
[2018-05-18 20:00] VITALS: BP 114/76
[2018-05-18] MEDS: AMITRIPTYLINE HCL 25 MG TAB PO SCH (21:31)
[2018-05-18] MEDS: ATORVASTATIN 20 MG TAB PO SCH (21:32)
[2018-05-18] MEDS: INSULIN LANTUS (GLARGINE) 1 /0.01ml (100units/ml) SC SCH (21:47)
[2018-05-18 22:00] VITALS: BP 114/76
[2018-05-19 05:00] VITALS: BP 88/57
[2018-05-19] MEDS: InsuLIN REG 1unit/0.01ml Soln (100units/ml) SC SCH ×4 (07:00→21:46)
[2018-05-19] MEDS: ACCU-CHEK COMFORT CURVE STRIP VI SCH ×4 (07:09→21:46)
[2018-05-19] MEDS: GABAPENTIN 300 MG CAP PO SCH ×3 (07:09→21:46)
[2018-05-19] MEDS: HYDROcodone-ACET 5/325MG TAB PO PRN ×4 (08:56→21:46)
[2018-05-19 09:35] VITALS: BP 125/89
[2018-05-19] MEDS: LISINOPRIL 5 MG TAB PO SCH (10:00)
[2018-05-19] MEDS: PANTOPRAZOLE 40 MG TAB PO SCH (10:47)
[2018-05-19] MEDS: DULoxetine HCL 30 MG CAP PO SCH (10:47)
[2018-05-19] MEDS ORDERED: cefTRIAXone 1GM/10ml IVPUSH 10 ML IV ONE ×2 (12:45→21:15)
[2018-05-19 13:00] VITALS: BP 95/60
[2018-05-19] MEDS: SODIUM CHLORIDE 0.9% 1,000 ML IV SCH (16:52)
[2018-05-19 17:09] VITALS: BP 102/70
[2018-05-19 21:30] VITALS: BP 139/83
[2018-05-19] MEDS: AMITRIPTYLINE HCL 25 MG TAB PO SCH (21:45)
[2018-05-19] MEDS: ATORVASTATIN 20 MG TAB PO SCH (21:45)
[2018-05-19] MEDS: INSULIN LANTUS (GLARGINE) 1 /0.01ml (100units/ml) SC SCH (21:46)
[2018-05-20] MEDS ORDERED: DOCUSATE SOD 100 MG CAP PO ONE (00:30)
[2018-05-20 05:00] VITALS: BP 95/64
[2018-05-20] MEDS: InsuLIN REG 1unit/0.01ml Soln (100units/ml) SC SCH ×4 (05:55→21:58)
[2018-05-20] MEDS: GABAPENTIN 300 MG CAP PO SCH ×3 (05:55→21:58)
[2018-05-20] MEDS: HYDROcodone-ACET 5/325MG TAB PO PRN ×3 (05:55→20:07)
[2018-05-20] MEDS: ACCU-CHEK COMFORT CURVE STRIP VI SCH ×4 (05:55→21:59)
[2018-05-20 06:27] LABS: BUN/Creatinine Ratio 32.9; Calcium 8.6 mg/dL (8.5-10.1); Potassium 4.6 mmol/L (3.5-5.1)
[2018-05-20 08:00] VITALS: BP 132/87
[2018-05-20] MEDS: SODIUM CHLORIDE 0.9% 1,000 ML IV SCH (08:55)
[2018-05-20 09:00] VITALS: BP 132/87
[2018-05-20] MEDS: cefTRIAXone 1GM/10ml IVPUSH 10 ML IV SCH (09:56)
[2018-05-20] MEDS: DOCUSATE SOD 100 MG CAP PO SCH ×2 (09:57→21:58)
[2018-05-20] MEDS: DULoxetine HCL 30 MG CAP PO SCH (09:57)
[2018-05-20] MEDS: LISINOPRIL 5 MG TAB PO SCH (09:58)
[2018-05-20] MEDS: PANTOPRAZOLE 40 MG TAB PO SCH (10:06)
[2018-05-20 13:00] VITALS: BP 120/78
[2018-05-20] MEDS ORDERED: MORPHINE SULFATE 4 MG/ML SYR/VIAL IV ONE (13:45)
[2018-05-20] MEDS ORDERED: SENNA 8.6 MG TAB PO ONE (13:45)
[2018-05-20 17:00] VITALS: BP 98/67
[2018-05-20] MEDS: AMITRIPTYLINE HCL 25 MG TAB PO SCH (21:58)
[2018-05-20] MEDS: ATORVASTATIN 20 MG TAB PO SCH (21:58)
[2018-05-20] MEDS: INSULIN LANTUS (GLARGINE) 1 /0.01ml (100units/ml) SC SCH (21:59)
[2018-05-20 22:00] VITALS: BP 100/68
[2018-05-21] MEDS: HYDROcodone-ACET 5/325MG TAB PO PRN ×3 (00:25→09:55)
[2018-05-21] MEDS: SODIUM CHLORIDE 0.9% 1,000 ML IV SCH (01:35)
[2018-05-21 05:12] VITALS: BP 98/70
[2018-05-21] MEDS: InsuLIN REG 1unit/0.01ml Soln (100units/ml) SC SCH ×2 (06:07→11:30)
[2018-05-21] MEDS: ACCU-CHEK COMFORT CURVE STRIP VI SCH ×2 (06:07→11:30)
[2018-05-21] MEDS: GABAPENTIN 300 MG CAP PO SCH ×2 (06:07→15:29)
[2018-05-21] MEDS ORDERED: SENNA 8.6 MG TAB PO ONE (07:15)
[2018-05-21 08:00] VITALS: BP 125/84
[2018-05-21 09:00] VITALS: BP 106/52
[2018-05-21] MEDS: cefTRIAXone 1GM/10ml IVPUSH 10 ML IV SCH (09:53)
[2018-05-21] MEDS: DULoxetine HCL 30 MG CAP PO SCH (09:53)
[2018-05-21] MEDS: LISINOPRIL 5 MG TAB PO SCH (09:54)
[2018-05-21] MEDS: DOCUSATE SOD 100 MG CAP PO SCH (09:54)
[2018-05-21] MEDS: PANTOPRAZOLE 40 MG TAB PO SCH (09:54)
[2018-05-21 13:00] VITALS: BP 125/84
[2018-05-21] MEDS ORDERED: CLOP75TA28 PO (13:31)
[2018-05-21 15:44] VITALS: BP 106/52
== END 2018-05-21 17:07 | disposition home health service (06) | DRG 197 ==
LOC: ER 17:42 → TELE 17:43 → TELE-WESTW 05-17 08:33
PROVIDERS: ADMIT Nurse Practitioner Family; ATTEND Internal Medicine
DX: E11.51 Type 2 diabetes mellitus with diabetic peripheral angiopathy without gangrene (principal); N17.0 Acute kidney failure with tubular necrosis; E11.42 Type 2 diabetes mellitus with diabetic polyneuropathy; E11.22 Type 2 diabetes mellitus with diabetic chronic kidney disease; E11.65 Type 2 diabetes mellitus with hyperglycemia; E66.01 Morbid (severe) obesity due to excess calories; I12.9 Hypertensive chronic kidney disease with stage 1 through stage 4 chronic kidney disease, or unspecified chronic kidney disease; B96.1 Klebsiella pneumoniae [K. pneumoniae] as the cause of diseases classified elsewhere; N18.9 Chronic kidney disease, unspecified; N39.0 Urinary tract infection, site not specified; D63.1 Anemia in chronic kidney disease; E11.21 Type 2 diabetes mellitus with diabetic nephropathy; E78.5 Hyperlipidemia, unspecified; F17.200 Nicotine dependence, unspecified, uncomplicated; G89.4 Chronic pain syndrome; I69.351 Hemiplegia and hemiparesis following cerebral infarction affecting right dominant side; Z79.4 Long term (current) use of insulin; Z83.3 Family history of diabetes mellitus; Z86.711 Personal history of pulmonary embolism; Z87.442 Personal history of urinary calculi; Z90.49 Acquired absence of other specified parts of digestive tract; Z91.14 Patient's other noncompliance with medication regimen; Z91.19 Patient's noncompliance with other medical treatment and regimen; Z79.899 Other long term (current) drug therapy
CPT/HCPCS: 36415; 70450; 70551; 71045; 80048; 80053; 80061; 80307; 81001; 82607; 82746; 82962; 83036; 83540; 83550; 83735; 83880; 84443; 84484; 85025; 85379; 85610; 85730; 87086; 87088; 87186; 93005; 93306; 93926; 93970; 94761; 96374; 96375; A6257; J0696; J1815; J2405

== ENCOUNTER 2018-06-12 17:23 | Emergency (ER) | payer MEDICAID ==
[~2018-06-12] VITALS: Ht 157.5 cm; Wt 61.2 kg
[~2018-06-12 17:23] MED LIST changes: -AMIT25TA9 PO; -ASPI81CH43 PO; +CLOP75TA28 PO; -DULO20CA PO; +DULO60CA PO; -FENO1TAB42 PO; +GABA300C10 PO; -GEMF600T7 PO; -GLIP-115 PO; -HYDR-4683 PO; -HYDR25TA4 PO; -INSLISPI SC; -LISI-275 PO; +MIDO2.5T PO; +RIV15T PO; +SENN1TAB14 PO
[2018-06-12 19:06] VITALS: BP 127/84
[2018-06-12] MEDS ORDERED: KETOROLAC TROMETH 30 MG/ML 1ML VIAL IV ONE (19:15)
[2018-06-12 19:36] LABS: Basophils # (auto) 0 uL; Basophils % (auto) 0.4 % (0.0-2.0); Eosinophils # (auto) 0.3 uL; Eosinophils % (auto) 3.6 % (0.0-7.0); Hematocrit 33.7 % (36.0-46.0); Hemoglobin 11.4 g/dL (12.2-16.2); Lymphocytes # (auto) 3.1 uL; Lymphocytes % (auto) 38.3 % (10.0-50.0); Mean Corpuscular Hgb Conc. 33.9 g/dL (32.0-36.0); Mean Corpuscular Volume 88.5 fL (80.0-100.0); Monocytes # (auto) 0.6 uL; Monocytes % (auto) 7.7 % (0.0-12.0); Platelet Count (auto) 361 10^3/uL (140-450); Red Blood Cells 3.81 10^6/uL (4.0-5.20); Red Cell Distribution Width 13.5 % (11.8-14.3)
[2018-06-12 19:56] LABS: Albumin 3.7 g/dL (3.4-5.0); Anion Gap 9 (5-15); Blood Urea Nitrogen 29 mg/dL (7-18); Calcium 9.9 mg/dL (8.5-10.1); Carbon Dioxide 28 mmol/L (21-32); Chloride 103 mmol/L (98-107); Glucose 216 mg/dL (74-106); Potassium 4.5 mmol/L (3.5-5.1); Sodium 140 mmol/L (136-145)
[2018-06-12 19:58] LABS: Alanine Aminotransferase 34 U/L (13-56); Aspartate Aminotransferase 21 U/L (15-37); BUN/Creatinine Ratio 23.4; GFR African American 59 mL/min; GFR Non-African American 49 mL/min
[2018-06-12 20:02] LABS: Alkaline Phosphatase 100 U/L (45-117); Bilirubin, Total 0.2 mg/dL (0.2-1.0); Total Protein 7.8 g/dL (6.4-8.2)
== END 2018-06-12 22:20 | disposition home or self-care (01) ==
LOC: EDBD 17:23 → EDUNIT# 17:23 → ER 17:33
DX: F41.9 Anxiety disorder, unspecified (principal); G62.9 Polyneuropathy, unspecified; I11.0 Hypertensive heart disease with heart failure; I50.9 Heart failure, unspecified; E11.9 Type 2 diabetes mellitus without complications; E78.5 Hyperlipidemia, unspecified; Z90.49 Acquired absence of other specified parts of digestive tract; Z87.442 Personal history of urinary calculi; Z87.440 Personal history of urinary (tract) infections; Z87.891 Personal history of nicotine dependence; Z79.4 Long term (current) use of insulin; Z79.899 Other long term (current) drug therapy
CPT/HCPCS: 36415; 71046; 80053; 82550; 83735; 84484; 85025; 93005; 94761; 96374; 99285; J1885

== ENCOUNTER → 2018-07-02 | Outpatient (CLI) | payer MEDICAID ==
[~2018-07-02] MED LIST changes: +IOHEXOL 350 MG/ML 100ML IJ ONE
[2018-07-02 10:10] VITALS: BP 143/84
[2018-07-02 11:00] VITALS: BP 146/88
== END | disposition home or self-care (01) ==
LOC: Rad HDHVI 10:01
PROVIDERS: ATTEND Internal Medicine Cardiovascular Disease
DX: K57.30 Diverticulosis of large intestine without perforation or abscess without bleeding (principal); M47.896 Other spondylosis, lumbar region; M48.061 Spinal stenosis, lumbar region without neurogenic claudication; Z90.49 Acquired absence of other specified parts of digestive tract
CPT/HCPCS: 72131; 75635; 82565; G0463; Q9967

== ENCOUNTER 2018-12-15 10:38 | Inpatient (IN) | payer MEDICAID, OTHER | END 2018-12-17 16:00 | disposition home or self-care (01) | LOC: ER 10:38 → TELE 15:06 → TELE-WESTW 18:11 | DX: I12.9 Hypertensive chronic kidney disease with stage 1 through stage 4 chronic kidney disease, or unspecified chronic kidney disease (principal); N17.0 Acute kidney failure with tubular necrosis; R55 Syncope and collapse; E11.65 Type 2 diabetes mellitus with hyperglycemia; N18.4 Chronic kidney disease, stage 4 (severe); E11.22 Type 2 diabetes mellitus with diabetic chronic kidney disease ==

== ENCOUNTER 2019-02-20 20:38 | Emergency (ER) | payer MEDICAID ==
[~2019-02-20] VITALS: Ht 162.6 cm; Wt 77.1 kg
[~2019-02-20 20:38] MED LIST changes: +AMIT25TA9 PO; -IOHEXOL 350 MG/ML 100ML IJ ONE; +LORA1TAB12 PO; +METF-370 PO
[2019-02-20 21:43] LABS: Basophils # (auto) 0.1 uL; Basophils % (auto) 0.7 % (0.0-2.0); Eosinophils # (auto) 0.3 uL; Eosinophils % (auto) 2.7 % (0.0-7.0); Hematocrit 35.7 % (36.0-46.0); Hemoglobin 11.6 g/dL (12.2-16.2); Lymphocytes # (auto) 2.9 uL; Lymphocytes % (auto) 30.5 % (10.0-50.0); Mean Corpuscular Hemoglobin 28.4 pg (28.0-32.0); Mean Corpuscular Hgb Conc. 32.6 g/dL (32.0-36.0); Monocytes # (auto) 0.5 uL; Monocytes % (auto) 5.6 % (0.0-12.0); Neutrophils # (auto) 5.7 uL; Neutrophils % (auto) 60.5 % (37.0-80.0); Platelet Count (auto) 339 10^3/uL (140-450); Red Blood Cells 4.11 10^6/uL (4.0-5.20); Red Cell Distribution Width 14.4 % (11.8-14.3); White Blood Cell 9.4 10^3/uL (4.4-10.8)
[2019-02-20 22:10] LABS: Albumin 3.6 g/dL (3.4-5.0); Anion Gap 6 (5-15); Blood Urea Nitrogen 30 mg/dL (7-18); Carbon Dioxide 30 mmol/L (21-32); Chloride 104 mmol/L (98-107); Glucose 199 mg/dL (74-106); Potassium 4.4 mmol/L (3.5-5.1); Sodium 140 mmol/L (136-145)
[2019-02-20 22:15] LABS: Alanine Aminotransferase 28 U/L (13-56); Alkaline Phosphatase 136 U/L (45-117); Aspartate Aminotransferase 16 U/L (15-37); BUN/Creatinine Ratio 28.3; Bilirubin, Total 0.2 mg/dL (0.2-1.0); GFR African American 71 mL/min; GFR Non-African American 59 mL/min; Total Protein 7.8 g/dL (6.4-8.2)
[2019-02-21 00:07] LABS: Urine WBC None Seen /hpf (0 - 5)
[2019-02-21 00:40] LABS: Urine Bacteria FEW /hpf (None Seen); Urine Blood Negative /uL (Negative); Urine Specific Gravity 1.015 (1.001-1.035)
[2019-02-21] MEDS ORDERED: MORPHINE SULFATE 4 MG/ML SYR/VIAL IV ONE (01:00)
[2019-02-21] MEDS ORDERED: ONDANSETRON HCL 4 MG/2 ML VIAL IV ONE (01:00)
[2019-02-21 06:00] VITALS: BP 110/66
== END 2019-02-21 06:28 | disposition home or self-care (01) ==
LOC: EDBD 20:38 → ER 20:40
DX: I26.99 Other pulmonary embolism without acute cor pulmonale (principal); M54.12 Radiculopathy, cervical region; E11.9 Type 2 diabetes mellitus without complications; I10 Essential (primary) hypertension; Z79.01 Long term (current) use of anticoagulants; Z79.899 Other long term (current) drug therapy; Z79.4 Long term (current) use of insulin; Z86.73 Personal history of transient ischemic attack (TIA), and cerebral infarction without residual deficits; Z86.711 Personal history of pulmonary embolism; Z90.49 Acquired absence of other specified parts of digestive tract
CPT/HCPCS: 36415; 71045; 72125; 80053; 81001; 81025; 84484; 85025; 93005; 96374; 96375; 99284; J2270; J2405; J7030

== ENCOUNTER 2021-01-12 08:09 | Emergency (ER) | payer MEDICAID ==
[~2021-01-12] VITALS: Ht 157.5 cm; Wt 90.7 kg
[~2021-01-12 08:09] MED LIST changes: +ATOR-47 PO; -ATOR1TAB PO; -LORA1TAB12 PO; +LORA1TAB23 PO; -MIDO2.5T PO; +MIDO2.5T3 PO
[2021-01-12 08:13] VITALS: BP 128/78
[2021-01-12] MEDS ORDERED: cefTRIAXone SOD 1,000 MG VL ONE (08:39)
[2021-01-12] MEDS ORDERED: TETANUS-DIPTH-ACEL PERTUSSIS 0.5ML SYR Tdap IM ONE (08:45)
== END 2021-01-12 09:33 | disposition home or self-care (01) ==
LOC: ER 08:09
DX: N61.1 Abscess of the breast and nipple (principal); F41.9 Anxiety disorder, unspecified; F32.9 Major depressive disorder, single episode, unspecified; E11.9 Type 2 diabetes mellitus without complications; I10 Essential (primary) hypertension; G35 Multiple sclerosis; Z79.4 Long term (current) use of insulin; Z79.899 Other long term (current) drug therapy; Z86.73 Personal history of transient ischemic attack (TIA), and cerebral infarction without residual deficits; Z86.711 Personal history of pulmonary embolism; Z90.49 Acquired absence of other specified parts of digestive tract; Z98.890 Other specified postprocedural states
CPT/HCPCS: 10060; 87205; 90471; 90715; 96372; 99284; J0696

== ENCOUNTER 2021-01-15 08:31 | Emergency (ER) | payer MEDICAID ==
[~2021-01-15] VITALS: Ht 157.5 cm; Wt 90.7 kg
[2021-01-15 09:22] VITALS: BP 134/76
== END 2021-01-15 09:45 | disposition home or self-care (01) ==
LOC: ER 08:31
DX: N61.1 Abscess of the breast and nipple (principal); E11.9 Type 2 diabetes mellitus without complications; I10 Essential (primary) hypertension; Z79.899 Other long term (current) drug therapy

== ENCOUNTER 2022-04-04 08:18 | Emergency (ER) | payer MEDICAID ==
[~2022-04-04] VITALS: Ht 157.5 cm; Wt 90.0 kg
[~2022-04-04 08:18] MED LIST changes: +AMIT25TA12 PO; -AMIT25TA9 PO
[2022-04-04 09:09] VITALS: BP 139/87
[2022-04-04] MEDS ORDERED: IBUPROFEN 800 MG TAB PO ONE (09:45)
== END 2022-04-04 09:39 | disposition home or self-care (01) ==
LOC: ER 08:18
DX: S63.601A Unspecified sprain of right thumb, initial encounter (principal); I10 Essential (primary) hypertension; E11.9 Type 2 diabetes mellitus without complications; Z90.49 Acquired absence of other specified parts of digestive tract; Z86.73 Personal history of transient ischemic attack (TIA), and cerebral infarction without residual deficits; Z79.4 Long term (current) use of insulin; Z79.899 Other long term (current) drug therapy; Z79.01 Long term (current) use of anticoagulants; W18.39XA Other fall on same level, initial encounter; Y93.89 Activity, other specified; Y92.89 Other specified places as the place of occurrence of the external cause; Y99.8 Other external cause status
CPT/HCPCS: 73130

== ENCOUNTER → 2022-04-23 | Outpatient (CLI) | payer MEDICAID | END | disposition home or self-care (01) | LOC: XY 09:07 | PROVIDERS: ATTEND Student in an Organized Health Care Education/Training Program | DX: I89.0 Lymphedema, not elsewhere classified (principal); I73.9 Peripheral vascular disease, unspecified | CPT/HCPCS: 93925 ==

== ENCOUNTER 2022-06-03 08:02 | Emergency (ER) | payer MEDICAID ==
[~2022-06-03] VITALS: Ht 157.5 cm; Wt 94.0 kg
[2022-06-03 09:06] VITALS: BP 121/67
[2022-06-03] MEDS ORDERED: KETOROLAC TROMETH 60MG/2ML VIAL IM ONE (09:15)
== END 2022-06-03 10:14 | disposition home or self-care (01) ==
LOC: ER 08:02
DX: S93.601A Unspecified sprain of right foot, initial encounter (principal); S93.401A Sprain of unspecified ligament of right ankle, initial encounter; E11.9 Type 2 diabetes mellitus without complications; I10 Essential (primary) hypertension; Z90.49 Acquired absence of other specified parts of digestive tract; Z86.73 Personal history of transient ischemic attack (TIA), and cerebral infarction without residual deficits; X58.XXXA Exposure to other specified factors, initial encounter; Y93.01 Activity, walking, marching and hiking; Y92.89 Other specified places as the place of occurrence of the external cause; Y99.8 Other external cause status
CPT/HCPCS: 73610; 73630; 96372; 99284; J1885

== ENCOUNTER → 2022-07-14 | Outpatient (CLI) | payer MEDICAID | END | disposition home or self-care (01) | LOC: XYW 13:59 | PROVIDERS: ATTEND Internal Medicine | DX: Z01.810 Encounter for preprocedural cardiovascular examination (principal); I34.0 Nonrheumatic mitral (valve) insufficiency; I11.9 Hypertensive heart disease without heart failure | CPT/HCPCS: 93306 ==

== ENCOUNTER → 2022-07-25 | Outpatient (CLI) | payer MEDICAID ==
[~2022-07-25] VITALS: Ht 157.5 cm; Wt 95.3 kg
[~2022-07-25] MED LIST changes: +ADENOSINE 80 MG in GIVE UN-DILUTED 0 ML IV ONE
== END | disposition home or self-care (01) ==
LOC: XYW 08:21
PROVIDERS: ATTEND Internal Medicine
DX: Z01.810 Encounter for preprocedural cardiovascular examination (principal); I10 Essential (primary) hypertension; E11.65 Type 2 diabetes mellitus with hyperglycemia; E11.610 Type 2 diabetes mellitus with diabetic neuropathic arthropathy; E78.5 Hyperlipidemia, unspecified
CPT/HCPCS: 78452; 93017; A9500; J0153

== ENCOUNTER 2022-08-27 08:36 | Day surgery (SDC) | payer MEDICAID ==
[2022-08-25 15:18] LABS: Basophils # (auto) 0.1 10 ^3/uL (0-0.2); Basophils % (auto) 0.8 % (0.0-2.0); Eosinophils # (auto) 0.2 10 ^3/uL (0-0.8); Eosinophils % (auto) 2.3 % (0.0-7.0); Hematocrit 39.8 % (36.0-46.0); Hemoglobin 13.5 g/dL (12.2-16.2); Lymphocytes # (auto) 3.2 10 ^3/uL (0.4-5.4); Lymphocytes % (auto) 32.1 % (10.0-50.0); Mean Corpuscular Hemoglobin 29.5 pg (28.0-32.0); Mean Corpuscular Hgb Conc. 33.9 g/dL (32.0-36.0); Mean Corpuscular Volume 87.1 fL (80.0-100.0); Monocytes # (auto) 0.5 10 ^3/uL (0-1.3); Monocytes % (auto) 5.3 % (0.0-12.0); Neutrophils # (auto) 5.9 10 ^3/uL (1.6-8.6); Neutrophils % (auto) 59.5 % (37.0-80.0); Nucleated Red Blood Cells % 0.1 %; Red Blood Cells 4.58 10^6/uL (4.0-5.20); Red Cell Distribution Width 14.3 % (11.8-14.3)
[2022-08-25 15:34] LABS: INR 0.97 (0.9-1.15); Partial Thromboplastin Time 29.9 sec (24.6-33.4)
[2022-08-25 15:43] LABS: Albumin 3.3 g/dL (3.4-5.0); BUN/Creatinine Ratio 19.8; Calcium 9.6 mg/dL (8.5-10.1); Potassium 4.4 mmol/L (3.5-5.1)
[2022-08-25 15:46] LABS: Bilirubin, Total 0.4 mg/dL (0.2-1.0); Total Protein 7.6 g/dL (6.4-8.2)
[~2022-08-27] VITALS: Ht 157.5 cm; Wt 95.3 kg
[~2022-08-27 08:36] MED LIST changes: -ADENOSINE 80 MG in GIVE UN-DILUTED 0 ML IV ONE; -CLOP75TA28 PO; +EMPA1TAB3 PO; -LORA1TAB23 PO; -METF-370 PO; -MIDO2.5T3 PO; -SENN1TAB14 PO
[2022-08-27] MEDS ORDERED: fentaNYL CITRATE 100 MCG/2 ML VL ONE (12:28)
[2022-08-27] MEDS ORDERED: HEPARIN SODIUM (PORCINE) 5000 UNITS/ML 1ML VIAL ONE (12:28)
[2022-08-27] MEDS ORDERED: VERAPAMIL 2.5MG/ML INJ 2ML VIAL IV ONE (12:28)
[2022-08-27] MEDS ORDERED: MIDAZOLAM HCL 2MG/2ML 2ml VIAL (1mg/ml) ONE (12:28)
[2022-08-27] MEDS ORDERED: LIDOCAINE 2%HCL (LOCAL ANESTH.) INJ 10ml MDV ONE (12:30)
[2022-08-27] MEDS ORDERED: ANGIOMAX 250 MG VIAL IV ONE (12:33)
[2022-08-27] MEDS ORDERED: SODIUM CHL 0.9% 0 ML ONE (12:33)
[2022-08-27] MEDS ORDERED: IOHEXOL 350 MG/ML 100ML IJ ONE (12:38)
== END 2022-08-27 15:23 | disposition home or self-care (01) ==
LOC: CATH 08:36
PROVIDERS: ATTEND Internal Medicine
DX: R94.39 Abnormal result of other cardiovascular function study (principal); Z20.822 Contact with and (suspected) exposure to COVID-19
CPT/HCPCS: 36415; 80053; 85025; 85610; 85730; 93458; C1769; C1887; C1894; J1644; J2001; J2250; J3010; Q9967; U0003; 99152

== ENCOUNTER → 2022-09-02 | Outpatient (CLI) | payer MEDICAID ==
[2022-09-02 14:00] LABS: Albumin 3.5 g/dL (3.4-5.0); Calcium 9.7 mg/dL (8.5-10.1); Potassium 3.9 mmol/L (3.5-5.1)
[2022-09-02 14:19] LABS: Bilirubin, Total 0.3 mg/dL (0.2-1.0); Total Protein 7.6 g/dL (6.4-8.2)
== END | disposition home or self-care (01) ==
LOC: LAB 13:06
PROVIDERS: ATTEND Internal Medicine
DX: E11.65 Type 2 diabetes mellitus with hyperglycemia (principal); I10 Essential (primary) hypertension; R07.9 Chest pain, unspecified
CPT/HCPCS: 36415; 80053

== ENCOUNTER → 2022-11-28 | Outpatient (CLI) | payer MEDICAID ==
[2022-11-25 10:52] LABS: Basophils # (auto) 0.1 10 ^3/uL (0-0.2); Basophils % (auto) 0.6 % (0.0-2.0); Eosinophils # (auto) 0.2 10 ^3/uL (0-0.8); Eosinophils % (auto) 1.7 % (0.0-7.0); Hematocrit 42.9 % (36.0-46.0); Hemoglobin 14.1 g/dL (12.2-16.2); Lymphocytes # (auto) 3.1 10 ^3/uL (0.4-5.4); Lymphocytes % (auto) 29.9 % (10.0-50.0); Mean Corpuscular Hemoglobin 28.8 pg (28.0-32.0); Mean Corpuscular Hgb Conc. 32.8 g/dL (32.0-36.0); Mean Corpuscular Volume 87.8 fL (80.0-100.0); Monocytes # (auto) 0.6 10 ^3/uL (0-1.3); Neutrophils # (auto) 6.5 10 ^3/uL (1.6-8.6); Neutrophils % (auto) 61.8 % (37.0-80.0); Nucleated Red Blood Cells % 0.1 %; Red Blood Cells 4.89 10^6/uL (4.0-5.20); Red Cell Distribution Width 14.9 % (11.8-14.3); White Blood Cell 10.5 10^3/uL (4.4-10.8)
[2022-11-25 11:04] LABS: Urine Bacteria FEW /hpf (None Seen); Urine Blood Negative /uL (Negative); Urine Specific Gravity 1.024 (1.001-1.035); Urine WBC 2 /hpf (0 - 5)
[2022-11-25 11:06] LABS: INR 0.94 (0.9-1.15); Partial Thromboplastin Time 27.3 sec (24.6-33.4)
[2022-11-25 11:36] LABS: Albumin 3.4 g/dL (3.4-5.0); Calcium 10.1 mg/dL (8.5-10.1); Potassium 4.5 mmol/L (3.5-5.1)
[2022-11-25 11:39] LABS: BUN/Creatinine Ratio 20.5 (10.0-20.0); Bilirubin, Total 0.4 mg/dL (0.2-1.0); Total Protein 8.3 g/dL (6.4-8.2)
[~2022-11-28] VITALS: Ht 157.5 cm; Wt 98.0 kg
[~2022-11-28] MED LIST changes: +ALL100T PO; +BUME2TAB5 PO; +BUMEX2MG; +BUPIVACAINE 0.25% INJ 50ML VIAL ONE; +BUPIVACAINE HCL 0 ML ONE; +CHOLTAB12 PO; -EMPA1TAB3 PO; +FERR325T20 PO; +GABA-339 PO; -GABA300C10 PO; +ICOS1CAP OR; -INSLANTI SC; +INSLISPI SC; +INSU1INJ19 SC; +LIDOCAINE 1% HCL (LOCAL ANESTH.) INJ 20ML MDV ONE; +LIDOCAINE W/ EPINEPHRINE 1% 20ML VIAL ONE; -METF-929 PO; +SEMA2INJ SC; +TRAZ100T3 PO; +ceFAZolin 1GM/50ML 100 ML IV ONE
== END | disposition home or self-care (01) ==
LOC: SUR 06:04 → LAB 06:04 → EDSTATUS 07:00
PROVIDERS: ATTEND Student in an Organized Health Care Education/Training Program
DX: Z01.812 Encounter for preprocedural laboratory examination (principal); Z20.822 Contact with and (suspected) exposure to COVID-19
CPT/HCPCS: 36415; 80053; 81001; 82962; 85025; 85610; 85730; J0690; U0003; J2001; J3490

== ENCOUNTER 2023-01-24 03:41 | Emergency (ER) | payer MEDICAID ==
[~2023-01-24] VITALS: Ht 157.5 cm; Wt 100.0 kg
[~2023-01-24 03:41] MED LIST changes: -AMIT25TA12 PO; +AMIT25TA20 PO; -BUPIVACAINE 0.25% INJ 50ML VIAL ONE; -BUPIVACAINE HCL 0 ML ONE; -DULO60CA PO; +DULO60CA41 PO; -LIDOCAINE 1% HCL (LOCAL ANESTH.) INJ 20ML MDV ONE; -LIDOCAINE W/ EPINEPHRINE 1% 20ML VIAL ONE; +TRAZ-228 PO; -TRAZ100T3 PO; -ceFAZolin 1GM/50ML 100 ML IV ONE
[2023-01-24 06:10] LABS: Basophils # (auto) 0 10 ^3/uL (0-0.2); Basophils % (auto) 0.5 % (0.0-2.0); Eosinophils # (auto) 0.2 10 ^3/uL (0-0.8); Eosinophils % (auto) 2.8 % (0.0-7.0); Hemoglobin 11.5 g/dL (12.2-16.2); Lymphocytes # (auto) 3.3 10 ^3/uL (0.4-5.4); Lymphocytes % (auto) 38.1 % (10.0-50.0); Mean Corpuscular Hemoglobin 28.4 pg (28.0-32.0); Mean Corpuscular Hgb Conc. 32.8 g/dL (32.0-36.0); Mean Corpuscular Volume 86.5 fL (80.0-100.0); Monocytes # (auto) 0.5 10 ^3/uL (0-1.3); Monocytes % (auto) 5.4 % (0.0-12.0); Neutrophils # (auto) 4.6 10 ^3/uL (1.6-8.6); Neutrophils % (auto) 53.2 % (37.0-80.0); Red Blood Cells 4.05 10^6/uL (4.0-5.20); Red Cell Distribution Width 14.8 % (11.8-14.3); White Blood Cell 8.7 10^3/uL (4.4-10.8)
[2023-01-24 06:22] LABS: Calcium 8.7 mg/dL (8.5-10.1); Potassium 4.3 mmol/L (3.5-5.1)
[2023-01-24 06:27] LABS: BUN/Creatinine Ratio 19.8 (10.0-20.0); Bilirubin, Total 0.3 mg/dL (0.2-1.0); Total Protein 6.9 g/dL (6.4-8.2)
[2023-01-24 06:59] LABS: INR 1.16 (0.9-1.15); Partial Thromboplastin Time 35.2 sec (24.6-33.4)
[2023-01-24 10:30] VITALS: BP 102/58
[2023-01-24] MEDS ORDERED: HYDROcodone-ACET 10/325MG TAB PO ONE (12:15)
== END 2023-01-24 13:56 | disposition home or self-care (01) ==
LOC: ER 03:41 → EDBD 03:41 → ER 13:56
DX: R04.0 Epistaxis (principal); E11.9 Type 2 diabetes mellitus without complications; I10 Essential (primary) hypertension; Z90.49 Acquired absence of other specified parts of digestive tract; Z86.73 Personal history of transient ischemic attack (TIA), and cerebral infarction without residual deficits
CPT/HCPCS: 36415; 80053; 85025; 85610; 85730

== ENCOUNTER 2025-01-26 10:42 | Inpatient (IN) | payer MEDICAID ==
[~2025-01-26] VITALS: Ht 157.5 cm; Wt 71.5 kg
[2025-01-26 01:00] VITALS: BP 168/91; PULSE 98; RESP 18; TEMP 98; O2SAT 100
--- NOTE | 2025-01-26 10:54 | ED.PDOC ---
History of Present Illness HPI Comments 54-year-old female brought in by EMS presents with a chief complaint of syncope, abdominal pain, and generalized weakness. Patient states that her pain is localized to her LLQ, nonradiating, describes as cramping, and rates her pain a 7/10. Patient went to urgent care and was diagnosed with a "abdominal mass" x 1.5 weeks ago. Patient went to urgent care this morning again for the pain and was found to be hypotensive in the 90's systolic. Patient was referred to the ER. Patient went to the gas station prior to coming to the ER but had a syncopal episode and was out for 3-4 minutes according to son. Patient is now lethargic but is alert and oriented. Time Seen by MD: 10:45 Primary Care Provider: FRANCHESCA Reviewed Notes: Nurses Notes, Medications, Allergies Allergies: Coded Allergies: NO KNOWN ALLERGIES (Unverified , 08/25/22) Home Meds Reported Medications Semaglutide (Ozempic) 2 Mg/1.5 Ml Inj, 2 MG SC, INJ 11/27/22 Insulin Glargine (Basaglar Kwikpen) 100 Unit/Ml Inj, 100 UNIT SC, INJ 11/27/22 Bumetanide (Bumetanide) 2 Mg Tab, 1 MG PO QAM, TAB 11/27/22 Bumetanide (Bumex) 2 Mg Tab 11/27/22 Epa Ethyl Carmen (VASCEPA) 1 Gm Cap, 2 GM OR, CAP 11/27/22 Ferrous Sulfate (Ferosul) 325 Mg Tab, 325 MG PO, TAB 11/27/22 Trazodone Hcl (Trazodone Hcl) 100 Mg Tab, 50 MG PO QPM, TAB 11/27/22 Cholecalciferol (D3) 50 Mcg Tab, 50 MCG PO, TAB 11/27/22 Allopurinol (ZYLOPRIM TABLET) 100 Mg Tb, 100 MG PO DAILY, TAB 11/27/22 Gabapentin (Gabapentin) 600 Mg Tab, 600 MG PO TID, TAB 11/27/22 Insulin Lispro (Human) (Humalog) 100 Unit/Ml Inj, 100 UNIT SC, INJ 11/27/22 Amitriptyline Hcl (Amitriptyline Hcl) 25 Mg Tab, 50 MG PO HS for 30 Days, MG 12/16/18 Duloxetine Hcl (Cymbalta) 60 Mg Cap, 60 MG PO DAILY, CAP 12/16/18 Rivaroxaban (Xarelto Tablet) 15 Mg Tb, 15 MG PO BID for ON HOLD 08/26/22 05/17/18 Atorvastatin Calcium (ATORVASTATIN CALCIUM) 80 Mg Tab, 1 TAB PO QP, #30 TAB 5 Refills 05/17/18 Information Source: Patient, Emergency Med Personnel Mode of Arrival: EMS Severity: Moderate Timing: Minutes Duration: Since onset Prehospital treatment: 12 Lead EKG, Accucheck (123), Quality Assurance Qa Lab Technician, IVF Past Medical History PAST MEDICAL HISTORY: Anxiety, CVA, Depression, DM, HTN, PE Surgical History: Cholecystectomy, DECK SCALER History: No Pertinent DECK SCALER History Family History Family History: No family hx of HTN Social History Smoker: Non-Smoker Alcohol: Denies ETOH Use Drugs: Denies Drug Use Lives In: Home Constitutional: reports: weakness; denies: chills, diaphoresis, fatigue, fever, malaise, sweats, others EENTM: denies: blurred vision, double vision, ear bleeding, ear discharge, ear drainage, ear pain, ear ringing, eye pain, eye redness, hearing loss, mouth pain, mouth swelling, nasal discharge, nose bleeding, nose congestion, nose pain, photophobia, tearing, throat pain, throat swelling, voice changes, others Respiratory: denies: cough, hemoptysis, orthopnea, SOB at rest, shortness of breath, SOB with excertion, stridor, wheezing, others Cardiovascular: reports: syncope; denies: chest pain, dizzy spells, diaphoresis, Dyspnea on exertion, edema, irregular heart beat, left arm pain, lightheadedness, palpitations, PND, others Gastrointestinal: reports: abdominal pain; denies: abdomen distended, blood streaked bowels, constipated, diarrhea, dysphagia, difficulty swallowing, hematemesis, melena, nausea, poor appetite, poor fluid intake, rectal bleeding, rectal pain, vomiting, others Genitourinary: denies: abnormal vagina bleeding, burning, dyspareunia, dysuria, flank pain, frequency, hematuria, incontinence, pain, , vagina discharge, urgency, others Neurological: denies: dizziness, fainting, headache, left sided numbness, left sided weakness, numbness, paresthesia, pre-existing deficit, right sided numbness, right sided weakness, seizure, speech problems, tingling, tremors, weakness, others Musculoskeletal: denies: back pain, gout, joint pain, joint swelling, muscle pain, muscle stiffness, neck pain, others Integumetry: denies: bruises, change in color, change in hair/nails, dryness, laceration, lesions, lumps, rash, wounds, others Allergic/Immunocompromised: denies: Difficulty Healing, Frequent Infections, Hives, Itching, others Hematologic/Lymphatic: denies: anemia, blood clots, easy bleeding, easy br uising, swollen glands, others Endocrine: denies: excessive hunger, excessive sweating, excessive thirst, excessive urination, flushing, intolerance to cold, intolerance to heat, unexplained weight gain, unexplained weight loss, others Psychiatric: denies: anxiety, bipolar disorder, depression, hopeless, panic disorder, schizophrenia, sleepless, suicidal, others All Other Systems: Reviewed and Negative Physical Exam General Appearance: Moderate Distress HEENT: Normal ENT Inspection, Pharynx Normal, TMs Normal Neck: Full Range of Motion, Non-Tender, Normal, Normal Inspection Respiratory: Chest Non-Tender, Lungs Clear, No Accessory Muscle Use, No Respiratory Distress, Normal Breath Sounds Cardiovascular: No Edema, No JVD, No Murmur, No Gallop, Normal Peripheral Pulses, Regular Rate/Rhythm Breast Exam: Deferred Gastrointestinal: Diffuse, No Organomegaly, No Pulsatile Mass, Normal Bowel Sounds, Soft, Tenderness Genitalia: Deferred Pelvic: Deferred Rectal: Deferred Extremities: No calf tenderness, Normal capillary refill, Normal inspection, Normal range of motion, Non-tender, No pedal edema Musculoskeletal : Apperance: Normal Neurologic: Alert, systems coordinator II-XII nml as Tested, Motor Weakness, Normal Affect, Normal Mood, No Sensory Deficits Cerebellar Function: Normal Reflexes: Normal Skin: Dry, Normal Color, Warm Lymphatic: No Adenopathy Was a procedure done? Was a procedure done?: No EKG EKG : Pulse Rate (adult): 94 Bradley: Normal Cardiac Rhythm: NSR Block: None Hypertrophy: None ST: Normal Differential Dx Considerations may include: Cholelithiasis, small bowel obstruction, appendicitis X-Ray, Labs, Meds, VS Vital Signs Date Time Temp Pulse Resp B/P (MAP) Pulse Ox O2 Delivery O2 Flow Rate FiO2 01/26/25 14:02 88 20 90 Room Air 01/26/25 14:02 98.5 88 20 95/55 (68) 90 98.5 01/26/25 12:11 86 18 96/65 01/26/25 11:34 97 16 111/68 01/26/25 11:25 96 18 111/68 (82) 96 01/26/25 11:25 97 18 96 Room Air* 0 21 01/26/25 10:54 94 01/26/25 10:50 98.6 97 18 108/70 (83) 96 98.6 01/26/25 10:44 94 Lab Test 01/26/25 15:12 01/26/25 10:55 Range/Units Urine Color Yellow Yellow Urine Clarity Turbid H Clear Urine pH 5.5 5.0-9.0 Urine Specific [place] 1.030 1.001-1.035 Urine Protein 1+ H Negative Urine Ketones 1+ H Negative Urine Blood Negative Negative /uL Urine Nitrite Negative Negative Urine Bilirubin Negative Negative Urine Urobilinogen 2 H Negative mg/dL Urine Leukocyte Esterase Negative Negative /uL Urine RBC 1 0 - 4 /hpf Urine Microscopic WBC 1 0-5 /HPF Urine Squamous Epithelial Cells Mod <5 /hpf Urine Bacteria Few H None Seen /hpf Urine Hyaline Casts Mod 0 - 2 /lpf Urine Mucus Few None Seen Urine Glucose Normal Normal mg/dL White Blood Count 10.6 4.4-10.8 10^3/uL Red Blood Count 3.94 L 4.0-5.20 10^6/uL Hemoglobin 11.5 L 12.2-16.2 g/dL Hematocrit 34.4 L 36.0-46.0 % Mean Corpuscular Volume 87.3 80.0-100.0 fL Mean Corpuscular Hemoglobin 29.2 28.0-32.0 pg Mean Corpuscular Hemoglobin Concent 33.5 32.0-36.0 g/dL Red Cell Distribution Width 14.0 11.8-14.3 % Platelet Count 235 140-450 10^3/uL Mean Platelet Volume 8.6 6.9-10.8 fL Neutrophils (%) (Auto) 71.0 37.0-80.0 % Lymphocytes (%) (Auto) 20.8 10.0-50.0 % Monocytes (%) (Auto) 6.7 0.0-12.0 % Eosinophils (%) (Auto) 1.1 0.0-7.0 % Basophils (%) (Auto) 0.4 0.0-2.0 % Neutrophils # (Auto) 7.5 1.6-8.6 10 ^3/uL Lymphocytes # (Auto) 2.2 0.4-5.4 10 ^3/uL Monocytes # (Auto) 0.7 0-1.3 10 ^3/uL Eosinophils # (Auto) 0.1 0-0.8 10 ^3/uL Basophils # (Auto) 0 0-0.2 10 ^3/uL Nucleated Red Blood Cells 0.1 % Sodium Level 139 136-145 mmol/L Potassium Level 4.0 3.5-5.1 mmol/L Chloride Level 104 98-107 mmol/L Carbon Dioxide Level 27 20-31 mmol/L Anion Gap 8 5-15 Blood Urea Nitrogen 42 H 9-23 mg/dL Creatinine 1.69 H 0.550-1.02 mg/dL Glomerular Filtration Rate Calc 36 >90 mL/min BUN/Creatinine Ratio 24.9 H 10.0-20.0 Serum Glucose 113 H 74-106 mg/dL Calcium Level 10.4 8.7-10.4 mg/dL Total Bilirubin 0.7 0.2-1.0 mg/dL Aspartate Amino Transferase (AST) 21 0-34 U/L Alanine Aminotransferase (ALT) 32 7-40 U/L Alkaline Phosphatase 103 46-116 U/L Total Protein 7.0 5.7-8.2 g/dL Albumin 4.3 3.2-4.8 g/dL Lipase 47 12-53 U/L Current Medications Medications (Trade) Dose Ordered Sig/Nilesh Route Start Time Stop Time Status Last Admin Ondansetron HCl (Zofran) 4 mg ONCE ONCE IV 01/26/25 11:00 01/26/25 11:01 DC 01/26/25 11:34 Sodium Chloride 1,000 ml @ 1,000 mls/hr Q1H ONCE IVB 01/26/25 11:00 01/26/25 11:59 DC 01/26/25 11:38 Morphine Sulfate 4 mg ONCE ONCE IV 01/26/25 11:00 01/26/25 11:01 DC 01/26/25 11:34 Vancomycin HCl 200 ml @ 200 mls/hr ONCE ONCE IV 01/26/25 16:30 01/26/25 17:29 DC 01/26/25 18:50 Abdomen/Pelvis CT Scan Impression: 1. A 3.1 X 2.4 X 3.6 cm thick walled fluid collection in the anterior lower abdominal wall with surrounding inflammation, suspicious for abscess. 2. Status post cholecystectomy. No better ductal dilation. 3. [id number] atherosclerotic vascular disease. IV Hep-Lock was established. The patient was given morphine 4 mg IV push for the pain The patient was given Zofran 4 mg IV push for the nausea Because of the findings on the CAT scan, the patient was started on vancomycin IV piggyback The patient was bolused with normal saline The patient's CBC is within normal limits except for mild anemia The chemistry panel shows a BUN of 42 and a creatinine of 1.69 The liver enzymes are negative At this time, the patient is being admitted to the hospitalist. The urine test is positive for few bacteria The patient is being admitted Images Reviewed?: Images reviewed and evaluated by me Time of 1ST Reevaluation: 11:15 Reevaluation 1ST: Unchanged Patient Education/Counseling: Diagnosis, Treatment, Prognosis Family Education/Counseling: No Family Present Departure 1 Departure Time of Disposition: 20:47 Impression: Primary Impression: Intractable abdominal pain Additional Impression: Cellulitis Qualified Codes: L03.90 - Cellulitis, unspecified Disposition: 09 ADMITTED INPATIENT Admit to: Med Surg Condition: Fair Critical Care Note Critical Care Time?: No Stability Stability form required: Yes Unstable for transfer: ED Physician Assesment (Clinical assesment) Heart Score Heart Score: Heart Score Response (Comments) Value History N/A 0 EKG N/A 0 Age N/A 0 Risk Factors N/A 0 Troponin N/A 0 Total 0 I personally scribed for ZULY BENAVIDES MD ([email or web address]) on 01/26/25 at 10:54. Electronically submitted by Jas Whittaker ([email or web address]). I personally scribed for ZULY BENAVIDES MD ([email or web address]) on 01/26/25 at 11:36. Electronically submitted by Jas Whittaker ([email or web address]). UZLY BENAVIDES MD Jan 26, 2025 10:54
[2025-01-26 11:25] VITALS: PULSE 97; RESP 18; O2SAT 96
[2025-01-26 11:26] LABS: Basophils # (auto) 0 10 ^3/uL (0-0.2); Basophils % (auto) 0.4 % (0.0-2.0); Eosinophils # (auto) 0.1 10 ^3/uL (0-0.8); Eosinophils % (auto) 1.1 % (0.0-7.0); Hematocrit 34.4 % (36.0-46.0); Hemoglobin 11.5 g/dL (12.2-16.2); Lymphocytes # (auto) 2.2 10 ^3/uL (0.4-5.4); Lymphocytes % (auto) 20.8 % (10.0-50.0); Mean Corpuscular Hemoglobin 29.2 pg (28.0-32.0); Mean Corpuscular Hgb Conc. 33.5 g/dL (32.0-36.0); Mean Corpuscular Volume 87.3 fL (80.0-100.0); Monocytes # (auto) 0.7 10 ^3/uL (0-1.3); Monocytes % (auto) 6.7 % (0.0-12.0); Neutrophils # (auto) 7.5 10 ^3/uL (1.6-8.6); Nucleated Red Blood Cells % 0.1 %; Platelet Count (auto) 235 10^3/uL (140-450); Red Blood Cells 3.94 10^6/uL (4.0-5.20); White Blood Cell 10.6 10^3/uL (4.4-10.8)
--- NOTE | 2025-01-26 11:32 | DVH ---
Exam: CT CT AB PEL WO CON-NO ORAL OR IV History: pain Comparison Study: [facility] on DOS: 07/14/22 Technique: Multidetector spiral CT of the abdomen was performed from lung bases to pubic symphysis. I maging was performed without IV contrast. Axial, coronal and sagittal multiplanar reformats were obta ined from the axial data set by the technologist. Radiation dose : 1. Abdomen/Pelvis: CTDIvol 7.99 mGy, DLP 404.8 mGy*cm. Findings: Evaluation of solid organs is limited due to lack of intravenous contrast use. Lung Bases: . Normal heart size. No pleural or pericardial effusion. Liver: The liver is normal in size. No focal lesions. Gallbladder and biliary Tree: Status post cholycystectomy. No biliary ductal dilation. Spleen: Multiple punctate calcifications in the spleen, likely sequela of prior granulomas disease. Pancreas: The pancreas is grossly normal in appearance. Adrenal Glands: Unremarkable Kidneys: Kidneys are grossly normal without calculi or hydronephrosis. Bladder: Grossly unremarkable for degree of distention. 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 Small bowel and colon are normal in caliber and distribution. Normal appendix is visualized in the right lower quadrant without findings of appendic itis. Colonic diverticulosis without evidence of diverticulitis. Ascites: Absent Lymphadenopathy: No mesenteric, retroperitoneal or periportal lymphadenopathy. Abdominal wall and Mesentery: In the anterior lower abdominal wall there is a 3.1 X 2.4 X 3.6 cm thic k walled fluid collection with surrounding infiltration of the subcutaneous fat and overlying skin th ickening, suspicious for abscess. Moderate sized fat containing umbilical hernia. Vasculature: The visualized abdominal aorta is normal in size and caliber. Evaluation of abdominal a nd pelvic vessels is limited due to lack of intravenous contrast. [id number] atherosclerotic va scular calcifications. Pelvic Organs: Unremarkable Musculoskeletal: No aggressive focal bony lesions, acute fractures or dislocation. IMPRESSION: 1. A 3.1 X 2.4 X 3.6 cm thick walled fluid collection in the anterior lower abdominal wall with surro unding inflammation, suspicious for abscess. 2. Status post cholycystectomy. No better ductal dilation. 3. Jgiy-kz-ihhmvxly atherosclerotic vascular disease. Radiation optimization: All CT scans at this facility use at least one of these dose optimization senia hniques: automated exposure control mA and/or kV adjustment per patient size (includes targeted exam s where dose is matched to clinical indication) or iterative reconstruction.
[2025-01-26] MEDS: ONDANSETRON HCL 4 MG/2 ML VIAL IV ONE (11:34)
[2025-01-26] MEDS: MORPHINE SULFATE 4 MG/ML SYR/VIAL IV ONE (11:34)
[2025-01-26 11:38] LABS: Alanine Aminotransferase 32 U/L (7-40); Albumin 4.3 g/dL (3.2-4.8); Alkaline Phosphatase 103 U/L (46-116); Anion Gap 8 (5-15); Aspartate Aminotransferase 21 U/L (0-34); BUN/Creatinine Ratio 24.9 (10.0-20.0); Bilirubin, Total 0.7 mg/dL (0.2-1.0); Calcium 10.4 mg/dL (8.7-10.4); Carbon Dioxide 27 mmol/L (20-31); Chloride 104 mmol/L (98-107); Lipase 47 U/L (12-53); Sodium 139 mmol/L (136-145)
[2025-01-26] MEDS: SODIUM CHLORIDE 0.9% 1,000 ML IVB ONE (11:38)
[2025-01-26 11:41] LABS: Blood Urea Nitrogen 42 mg/dL (9-23); Glucose 113 mg/dL (74-106)
[2025-01-26 15:27] LABS: Urine Bacteria FEW /hpf (None Seen); Urine Blood Negative /uL (Negative); Urine Clarity Turbid (Clear); Urine Color Yellow (Yellow); Urine Hyaline Cast MOD /lpf (0 - 2); Urine Mucus FEW (None Seen); Urine Protein, UAD 1+ (Negative); Urine Squamous Epithelial Cell MOD /hpf (<5); Urine Urobilinogen 2 mg/dL (Negative); Urine WBC 1 /HPF (0-5); Urine pH 5.5 (5.0-9.0)
[2025-01-26] MEDS: VANCOMYCIN 1GM/200ML PM 200 ML IV ONE (18:50)
--- NOTE | 2025-01-26 20:32 | ECG ---
[facility] Test Date: 2025-01-26 Test Time: 10:44:04 Pat Name: PRATIMA SINGH Department: ED Room: 0285T Gender: F Grinding Wheel Inspector: RODOLFO SANCHEZB: 1970 Requested By: ZULY BENAVIDES Order Number: [id number] Reading MD: Waldemar Palmer Measurements Intervals [place] Rate: 94 P: 66 MS: 147 QRS: 57 QRSD: 82 T: 49 QT: 340 QTc: 426 Interpretive Statements Sinus rhythm Borderline low voltage, extremity leads Electronically Signed On 01-27-2025 9:28:32 PDT by Waldemar Palmer Please click the below link to view image of tracing.
[2025-01-26] MEDS ORDERED: DOCUSATE SOD 100 MG CAP PO PRN (20:45)
[2025-01-26] MEDS ORDERED: PIPERACILLIN-TAZOB 3.375GM 100 ML IV ONE (20:45)
[2025-01-26] MEDS ORDERED: ACETAMINOPHEN 325 MG TAB PO PRN (20:45)
[2025-01-26] MEDS ORDERED: ONDANSETRON HCL 4 MG/2 ML VIAL IV PRN (20:45)
[2025-01-26] MEDS ORDERED: NITROGLYCERIN 0.4 MG SL TAB SL PRN (20:45)
[2025-01-26] MEDS ORDERED: MORPHINE SULFATE INJ 2 MG/ml SYRG IV PRN ×2 (20:45)
[2025-01-26 21:15] VITALS: BP 151/88; PULSE 99; RESP 20; TEMP 97.7; O2SAT 100
[2025-01-26 21:24] VITALS: BP 139/86; PULSE 94; RESP 16; TEMP 98; O2SAT 95
[2025-01-26] MEDS ORDERED: VANCOMYCIN PER PHARMACY 0 MG IV SCH (21:30)
[2025-01-26 21:45] LABS: Amphetamine Screen, Urine Neg (NEGATIVE); Barbiturate Scree,Urine Neg (NEGATIVE); Benzodiazephine Screen, Urine Neg (NEGATIVE); Cannabinoid Screen, Urine Neg (NEGATIVE); Cocaine Screen, Urine Neg (NEGATIVE); Opiate Scree,Urine Pos (NEGATIVE); Phencyclidine Screen, Urine Neg (NEGATIVE)
[2025-01-26 21:54] LABS: INR 1.13 (0.9-1.15); Prothrombin Time 11.8 sec (9.3-11.8)
[2025-01-26] MEDS: CEFEPIME 1GM/ 50ML 50 ML IV ONE (23:06)
[2025-01-26] MEDS: SODIUM CHLORIDE 0.9% 1,000 ML IV SCH (23:06)
[2025-01-27] VITALS (7 sets, daily range): BP systolic 116–152; BP diastolic 69–90; PULSE 89–103; RESP 16–18; TEMP 97.2–98.3; O2SAT 95–100
[2025-01-27] MEDS ORDERED: DEXTROSE (50%) 50ML SYRG IV PRN (01:00)
--- NOTE | 2025-01-27 01:09 | DVHHPRES ---
History of Present Illness Resident Creating Document: JESSICA WEEMS RESIDENT History of Present Illness Ms. Ignacio Alcantar, a 54-year-old female with a medical history of anxiety, dyslipidemia, history of obesity, cerebrovascular accident (CVA), depression, diabetes mellitus (DM), hypertension (HTN), and pulmonary embolism (PE) on Xarelto, irritable bowel syndrome, chronic back pain, gouty arthritis, and a surgical history of cholecystectomy and , presented to the emergency room via EMS, with syncope, left lower quadrant (LLQ) abdominal pain, and generalized weakness. The abdominal pain, described as cramping and rated 7/10, has been ongoing for 1.5 weeks and was previously evaluated at urgent care, where an abdominal mass was identified. She returned to urgent care earlier today due to worsening pain and was found to be hypotensive with systolic blood pressure in the 90s, prompting referral to the ER. En route, she experienced a syncopal episode at a gas station, reportedly unconscious for 34 minutes per her son. Upon arrival, she was lethargic but alert and oriented, eventually returned to baseline. No pertinent gynecological history was noted. Past Medical History anxiety, dyslipidemia, history of obesity, cerebrovascular accident (CVA), depression, diabetes mellitus (DM), hypertension (HTN), and pulmonary embolism (PE) on Xarelto, irritable bowel syndrome, chronic back pain, gouty arthritis Past Surgical History surgical history of cholecystectomy and Family History: None Family History non contributory Smoke: No ALCOHOL: rare Drugs: None Domestic Violence: Neg Review of Systems Constitutional: Yes: Chills; No: Fever, Sweats, Weakness, Malaise, Other Eyes: No: Pain, Vision change, Conjunctivae inflammation, Eyelid inflammation, Other, Redness ENT: No: Ear pain, Ear discharge, Nose pain, Nose discharge, Nose congestion, Mouth pain, Mouth swelling, Throat pain, Throat swelling, Other Respiratory: No: Cough, Dry, Shortness of breath, SOB with excertion, Wheezing, Hemoptysis, Pleuritic Pain, Sputum, Wheezing, Other Cardiovascular: No: Chest Pain, Palpitations, Orthopnea, Paroxysmal Noc. Dyspnea, Edema, Lt Headedness, Other Gastrointestinal: Abdominal Pain, Other (mass); No: Nausea, Vomiting, Diarrhea, Constipation, Melena, Hematochezia Genitourinary: No Dysuria, No Frequency, No Incontinence, No Hematuria, No Retention, No Other Musculoskeletal: No: other, neck pain, shoulder pain, arm pain, back pain, hand pain, leg pain, foot pain Skin: Other (skin issue); No: Rash, Lesions, Jaundice, Bruising Neurological: No: Weakness, Numbness, Incoordination, Change in speech, Confusion, Seizures, Other Allergies: Coded Allergies: NO KNOWN ALLERGIES (Unverified , 08/25/22) Medications Current Medications Medications Dose Ordered Sig/Nilesh Route Start Time Stop Time Status Last Admin Dose Admin Sodium Chloride 1,000 ml @ 120 mls/hr Q8H20M IV 01/26/25 20:45 01/26/25 23:06 120 MLS/HR Ondansetron HCl 4 mg Q4HP PRN IV 01/26/25 20:45 Docusate Sodium 100 mg BIDPRN PRN PO 01/26/25 20:45 Acetaminophen 650 mg Q6HP PRN PO 01/26/25 20:45 Nitroglycerin 0.4 mg Q5MINP PRN SL 01/26/25 20:45 Vancomycin HCl 0 ml @ 0 mls/hr UD IV 01/26/25 21:30 Cefepime HCl 50 ml @ 12.5 mls/hr Q12HR IV 01/27/25 10:00 Vancomycin HCl 200 ml @ 200 mls/hr DAILY@1900 IV 01/27/25 19:00 Pantoprazole Sodium 40 mg DAILY IV 01/27/25 10:00 Morphine Sulfate 4 mg Q4HPRN PRN IV 01/27/25 01:00 Amitriptyline HCl 50 mg HS PO 01/27/25 22:00 UNV Trazodone HCl 50 mg HS PO 01/27/25 01:00 UNV Gabapentin 600 mg TID PO 01/27/25 06:00 UNV Diagnostic Test (Pha) 1 strip Q6HR 01/27/25 06:00 UNV Insulin Human Regular Q6HR SC 01/27/25 06:00 UNV Dextrose 50 ml UD PRN IV 01/27/25 01:00 UNV Lidocaine 1 patch DAILY TOP 01/27/25 10:00 UNV Duloxetine HCl 60 mg DAILY PO 01/27/25 10:00 UNV Exam Vital Signs Vital Signs Date Time Temp Pulse Resp B/P (MAP) Pulse Ox O2 Delivery O2 Flow Rate FiO2 01/26/25 21:37 97.7 98 12 123/73 (90) 96 97.7 01/26/25 14:02 Room Air 01/26/25 11:25 0 21 General Appearance: Alert, Oriented X3, Cooperative, mild distress HEENT: Atraumatic, PERRLA, EOMI, Other Respiratory: Clear to auscultation, Normal air movement Cardiovascular: Regular rate, Normal S1, Normal S2, No murmurs Abdominal: Normal bowel sounds, Soft, No hepatospenomegaly, Other (mid abdominal wall redness, tenderness and fluctunat mass ) Extremities: No clubbing, No cyanosis, No edema, Normal pulses, No tenderness/swelling Skin: No rashes, No breakdown (abdominal wall collection ) Neuro: Normal gait, Normal speech, Strength at 5/5 X4 ext, Normal tone, Sensation intact Psych/Mental Status: Mental status NL, Mood NL Labs/Xrays Labs Test 01/26/25 21:11 01/26/25 15:12 01/26/25 10:55 Range/Units Prothrombin Time 11.8 9.3-11.8 sec Prothrombin Time INR 1.13 0.9-1.15 Lactic Acid Level 0.8 0.4-2.0 mmol/L Plasma/Serum Blood Alcohol 3.6 <10 mg/dL Urine Color Yellow Yellow Urine Clarity Turbid H Clear Urine pH 5.5 5.0-9.0 Urine Specific [place] 1.030 1.001-1.035 Urine Protein 1+ H Negative Urine Ketones 1+ H Negative Urine Blood Negative Negative /uL Urine Nitrite Negative Negative Urine Bilirubin Negative Negative Urine Urobilinogen 2 H Negative mg/dL Urine Leukocyte Esterase Negative Negative /uL Urine RBC 1 0 - 4 /hpf Urine Microscopic WBC 1 0-5 /HPF Urine Squamous Epithelial Cells Mod <5 /hpf Urine Bacteria Few H None Seen /hpf Urine Hyaline Casts Mod 0 - 2 /lpf Urine Mucus Few None Seen Urine Glucose Normal Normal mg/dL Urine Opiates Screen Pos NEGATIVE Urine Fentanyl Screen Neg NEGATIVE Urine Barbiturates Screen Neg NEGATIVE Urine Phencyclidine Screen Neg NEGATIVE Urine Amphetamines Screen Neg NEGATIVE Urine Benzodiazepines Screen Neg NEGATIVE Urine Cocaine Screen Neg NEGATIVE Urine Cannabinoids Screen Neg NEGATIVE White Blood Count 10.6 4.4-10.8 10^3/uL Red Blood Count 3.94 L 4.0-5.20 10^6/uL Hemoglobin 11.5 L 12.2-16.2 g/dL Hematocrit 34.4 L 36.0-46.0 % Mean Corpuscular Volume 87.3 80.0-100.0 fL Mean Corpuscular Hemoglobin 29.2 28.0-32.0 pg Mean Corpuscular Hemoglobin Concent 33.5 32.0-36.0 g/dL Red Cell Distribution Width 14.0 11.8-14.3 % Platelet Count 235 140-450 10^3/uL Mean Platelet Volume 8.6 6.9-10.8 fL Neutrophils (%) (Auto) 71.0 37.0-80.0 % Lymphocytes (%) (Auto) 20.8 10.0-50.0 % Monocytes (%) (Auto) 6.7 0.0-12.0 % Eosinophils (%) (Auto) 1.1 0.0-7.0 % Basophils (%) (Auto) 0.4 0.0-2.0 % Neutrophils # (Auto) 7.5 1.6-8.6 10 ^3/uL Lymphocytes # (Auto) 2.2 0.4-5.4 10 ^3/uL Monocytes # (Auto) 0.7 0-1.3 10 ^3/uL Eosinophils # (Auto) 0.1 0-0.8 10 ^3/uL Basophils # (Auto) 0 0-0.2 10 ^3/uL Nucleated Red Blood Cells 0.1 % Sodium Level 139 136-145 mmol/L Potassium Level 4.0 3.5-5.1 mmol/L Chloride Level 104 98-107 mmol/L Carbon Dioxide Level 27 20-31 mmol/L Anion Gap 8 5-15 Blood Urea Nitrogen 42 H 9-23 mg/dL Creatinine 1.69 H 0.550-1.02 mg/dL Glomerular Filtration Rate Calc 36 >90 mL/min BUN/Creatinine Ratio 24.9 H 10.0-20.0 Serum Glucose 113 H 74-106 mg/dL Hemoglobin A1c 6.3 H <5.7 % A1C Calcium Level 10.4 8.7-10.4 mg/dL Total Bilirubin 0.7 0.2-1.0 mg/dL Aspartate Amino Transferase (AST) 21 0-34 U/L Alanine Aminotransferase (ALT) 32 7-40 U/L Alkaline Phosphatase 103 46-116 U/L Total Protein 7.0 5.7-8.2 g/dL Albumin 4.3 3.2-4.8 g/dL Lipase 47 12-53 U/L Assessment/Plan Assessment/Plan #anxiety with depression, continue home meds #dyslipidemia on statin #history of obesity on GLP1 , BMI improved #H/Stroke/cardiovascular accident (CVA) #diabetes mellitus (DM), hypertension (HTN), (LVH) and pulmonary embolism (PE) on Xarelto, irritable bowel syndrome, chronic back pain, gouty arthritis - start home medications with parenteral eventually as tolerated oral intake restart oral medications. #surgical history of cholecystectomy #surgical history of #syncope/presyncope likely vasovagal secondary due to pain versus hypovolemia , orthostatic positive extensive workup pending EKG unremarkable, last echo 3 years back, repeat echo, fall precautions #MARLYN dt VMN , IV hydration, avoid nephrotoxics #Abscess Intraabdominal ruled out #Likely will likely IR drainage , PT INR, CBC to check. #DM recheck HbA1c , on insulin, appropriately controlled, HbA1c 6.3 #Chronic anemia bl 13-14 #?Acute on chronic anemia #Anemia of chronic disease likely due to ckd #skin and soft tissue infection with subcutaneous abscess NPO pain and IV fluid with iv fluid in anticipation of procedure #Status post cholycystectomy #Bpau-ej-cqekhvni atherosclerotic vascular disease. #Gout on allopurinol 100 mg daily holding due to MARLYN #Dyslipidemia atorvastatin 80 mg daily. #diabetic peripheral neuropathy 600 mg gabapentin t.i.d. #Charcot arthropathy due to above, recurrent fracture, pending intervention on 01/26, missed due to abdominal pain #history obesity Ozempic #Insomnia: Trazodone 100 mg bedtime. #Irritable bowel syndrome/ diabetic gastropathy #PE/ history of venous thromboembolism, on Xarelto 50 mg daily, Telemetry, holding med for procedure, sc lovenox #IV vancomycin, cefepime. NO need for flagyl the collection is outside of peritoneum ref CT abd pelvis #History of hypertensive heart disease Concentric LVH on TTE in 2021 #Left atrial enlargement repeat echo #Mild mitral annular calcification. #Cholelithiasis, small bowel obstruction, appendicitis ruled out Full code: Discussed over 39 minutes, goals of care + plan of care. Patient is agreeable. Admitted tele, for potential IR drainage. Inpatient vs outpatient podiatry by Dr. Tracy for definitive treatment of recurrent fracture of charcot arthorpathy related pain. Discussed with Dr. Smyth. Plan discussed with: Patient My Orders Orders - JESSICA WEEMS RESIDENT Procedure Category Date Status Time Allergies KATELYNN 01/26/25 In Process 20:38 Code Status CODE 01/26/25 Transmitted 20:38 Sodium Chloride 0.9% PHA 01/26/25 In Process 20:45 Ondansetron Hcl PHA 01/26/25 In Process (Zofran) 20:45 Docusate Sodium PHA 01/26/25 In Process Capsule (Colace 20:45 Complete Blood Count LAB 01/27/25 Logged 04:00 Comprehensive LAB 01/27/25 Logged Metabolic Panel 04:00 Npo (Nothing By DIET 01/27/25 Transmitted Mouth) Diet Breakfast Condition: Critical KATELYNN 01/26/25 In Process 20:38 Acetaminophen Tablet PHA 01/26/25 In Process (Tylenol Tablet) 20:45 Nitroglycerin PHA 01/26/25 In Process Sublingual (Ntrostat 20:45 Oxygen By Nasal RT 01/26/25 Transmitted Cannula 20:38 Stat Ekg For Chest KATELYNN 01/26/25 In Process Pain 20:38 Notify Md Of Changes KATELYNN 01/26/25 In Process From Base 20:38 Employee Benefits Specialist For [facility] 01/26/25 In Process 24 Hours 20:38 Emergency Dysrhythmia KATELYNN 01/26/25 In Process Protocol 20:38 Rhythm Strips Once KATELYNN 01/26/25 In Process Every Shift 20:38 Blood Culture ANTHONY 01/26/25 In Process 20:44 * Radiologist Consult CONS 01/26/25 Transmitted 20:44 Admit ADMIT 01/26/25 Transmitted 21:01 Echo 2d Mode Cardiac US 01/26/25 Logged DOP 21:23 Vancomycin Per PHA 01/26/25 In Process Pharmacy 21:30 Cefepime 2gm/50ml Ns PHA 01/27/25 In Process (Maxipime 2gm/50ml) 10:00 Vancomycin 1gm/200ml PHA 01/27/25 In Process Pm 19:00 Vancomycin,Trough LAB 01/29/25 Verified 18:00 Vancomycin Per KATELYNN 01/29/25 In Process Pharmacy Protoc 19:00 Hepatitis B Surface LAB 01/27/25 Logged Antigen 00:21 Hepatitis C Antibody LAB 01/27/25 Logged 00:21 Pantoprazole PHA 01/27/25 In Process (Protonix) 10:00 Morphine Sulfate PHA 01/27/25 In Process Injection 01:00 Communication Order ORDERS 01/27/25 Transmitted 00:51 Amitriptyline Hcl PHA 01/27/25 Logged Tablet (Elavil Tablet) 22:00 Trazodone Hcl PHA 01/27/25 Logged (Desyrel) 01:00 Gabapentin Capsule PHA 01/27/25 Logged (Neurontin Capsule) 06:00 Glucose Blood PHA 01/27/25 Logged (Accu-Chek Comfort 06:00 Insulin R (Human) PHA 01/27/25 Logged (Insulin R) 06:00 Dextrose 50% Syringe PHA 01/27/25 Logged 01:00 Lidocaine 5% Topical PHA 01/27/25 Logged Patch (Lidoderm 5% 10:00 *Podiatry Consult CONS 01/27/25 Transmitted Demarcus(Dvmg) 00:59 Duloxetine Hcl PHA 01/27/25 Logged Capsule (Cymbalta 10:00 B-Type Natriuretic LAB 01/27/25 Verified Peptide 01:08 Date of Service: Jan 27, 2025 Billing Provider: REY SMYTH MD Common Visit Codes: [id number] INP/OBS CARE (HIGH) Secondary Visit Codes: [id number] CARE PLAN 30 MINUTES JESSICA WEEMS RESIDENT Jan 27, 2025 01:09
[2025-01-27] MEDS: traZODone HCL 50 MG TAB PO SCH (01:34)
[2025-01-27] MEDS: PANTOPRAZOLE 40 MG/10 ML VIAL INJ IV ONE (01:34)
[2025-01-27] MEDS: MORPHINE SULFATE 4 MG/ML SYR/VIAL IV PRN (01:35)
[2025-01-27] MEDS: ACCU-CHEK COMFORT CURVE STRIP VI SCH (05:27)
[2025-01-27] MEDS: GABAPENTIN 300 MG CAP PO SCH (05:27)
[2025-01-27] MEDS: InsuLIN REG 1unit/0.01ml Soln (100units/ml) SC SCH (05:49)
[2025-01-27] MEDS: fentaNYL CITRATE 100 MCG/2 ML VL IV ONE (07:00)
[2025-01-27] MEDS: MIDAZOLAM HCL 2MG/2ML 2ml VIAL (1mg/ml) IV ONE (07:00)
[2025-01-27 07:24] LABS: Basophils # (auto) 0 10 ^3/uL (0-0.2); Basophils % (auto) 0.2 % (0.0-2.0); Eosinophils # (auto) 0.2 10 ^3/uL (0-0.8); Eosinophils % (auto) 2.5 % (0.0-7.0); Hematocrit 34.5 % (36.0-46.0); Lymphocytes # (auto) 2.2 10 ^3/uL (0.4-5.4); Lymphocytes % (auto) 22.2 % (10.0-50.0); Mean Corpuscular Hemoglobin 30.3 pg (28.0-32.0); Mean Corpuscular Hgb Conc. 34.8 g/dL (32.0-36.0); Mean Corpuscular Volume 87.1 fL (80.0-100.0); Monocytes # (auto) 0.7 10 ^3/uL (0-1.3); Neutrophils # (auto) 6.7 10 ^3/uL (1.6-8.6); Neutrophils % (auto) 68.1 % (37.0-80.0); Platelet Count (auto) 217 10^3/uL (140-450); Red Blood Cells 3.96 10^6/uL (4.0-5.20); Red Cell Distribution Width 13.8 % (11.8-14.3); White Blood Cell 9.9 10^3/uL (4.4-10.8)
[2025-01-27 07:35] LABS: Alanine Aminotransferase 29 U/L (7-40); Albumin 4.1 g/dL (3.2-4.8); Alkaline Phosphatase 100 U/L (46-116); Anion Gap 11 (5-15); Aspartate Aminotransferase 19 U/L (<34); BUN/Creatinine Ratio 24.7 (10.0-20.0); Bilirubin, Total 0.4 mg/dL (0.2-1.0); Calcium 9.3 mg/dL (8.7-10.4); Carbon Dioxide 27 mmol/L (20-31); Chloride 104 mmol/L (98-107); Glucose 93 mg/dL (74-106); Potassium 3.8 mmol/L (3.5-5.1); Sodium 142 mmol/L (136-145); Total Protein 6.7 g/dL (5.7-8.2)
[2025-01-27 07:37] LABS: Blood Urea Nitrogen 39 mg/dL (9-23)
[2025-01-27] MEDS: LIDOCAINE 5% TOPICAL PATCH TOP SCH (09:02)
[2025-01-27] MEDS: CEFEPIME 2GM/50ML NS 50 ML IV SCH (09:02)
[2025-01-27] MEDS: DULoxetine HCL 30 MG CAP PO SCH (09:04)
[2025-01-27] MEDS: PANTOPRAZOLE 40 MG/10 ML VIAL INJ IV SCH (09:04)
--- NOTE | 2025-01-27 10:30 | DVH ---
US ABDOMEN LIMITED, HISTORY: EVALUATION FOR POSSIBLE ABSCESS TECHNICAL DATA: Transverse and longitudinal sonographic images were obtained of the abdomen wall. COMPARISON: RANKL on DOS: 06/03/22 FINDINGS: IMPRESSION: Two fluid collections measures: 2.1 x 1.7 x 2.9 cm and 3.1 x 2.9 x 3.1 cm.
[2025-01-27 11:14] LABS: Hepatitis B Surface Antigen Negative (Negative); Hepatitis C Antibody Negative (Negative)
[2025-01-27] MEDS: MORPHINE SULFATE INJ 2 MG/ml SYRG IV PRN (11:31)
[2025-01-27] MEDS ORDERED: VANCOMYCIN 1GM/200ML PM 200 ML IV SCH (19:00)
[2025-01-27] MEDS: INSULIN LANTUS (GLARGINE) 1 /0.01ml (100units/ml) SC SCH (21:04)
--- NOTE | 2025-01-27 21:44 | DVHPNRES ---
Progress Note Date Seen: Jan 27, 2025 Resident Creating Document: MENG KING MILKA Has the PT tested + for MRSA If YES, has PT been informed?: No Medical Necessity Reason Pt with a Central, PICC or Fol: No Subjective Review of Systems Ms. Ignacio Alcantar, a 54-year-old female with a medical history of anxiety, dyslipidemia, history of obesity, cerebrovascular accident (CVA), depression, diabetes mellitus (DM), hypertension (HTN), and pulmonary embolism (PE) on Xarelto, irritable bowel syndrome, chronic back pain, gouty arthritis, and a surgical history of cholecystectomy and , presented to the emergency room via EMS, with syncope, left lower quadrant (LLQ) abdominal pain, and generalized weakness. The abdominal pain, described as cramping and rated 7/10, has been ongoing for 1.5 weeks and was previously evaluated at urgent care, where an abdominal mass was identified. She returned to urgent care earlier today due to worsening pain and was found to be hypotensive with systolic blood pressure in the 90s, prompting referral to the ER. En route, she experienced a syncopal episode at a gas station, reportedly unconscious for 34 minutes per her son. Upon arrival, she was lethargic but alert and oriented, eventually returned to baseline. No pertinent gynecological history was noted. Past Medical History anxiety, dyslipidemia, history of obesity, cerebrovascular accident (CVA), depression, diabetes mellitus (DM), hypertension (HTN), and pulmonary embolism (PE) on Xarelto, irritable bowel syndrome, chronic back pain, gouty arthritis Patient seen and examined at the bedside. Patient is complaining of anterior abdominal pain and pain at the buttock area. Patient also reports of episodes of syncope, currently the patient has no dizziness, blurry vision or lightheadedness. Patient reports: No new complaints, Feels better Changes from previous H/P or p: Changes Objective vital signs Vital Sign Date Time Temp Pulse Resp B/P (MAP) Pulse Ox O2 Delivery O2 Flow Rate FiO2 01/27/25 21:14 97.6 98 17 128/76 (93) 95 97.6 01/27/25 08:00 Nasal Cannula* 2 28 Total Intake and Output 01/26/25 01/26/25 01/27/25 15:00 23:00 07:00 Intake Total 1000 ml 200 ml 0 ml Balance 1000 ml 200 ml 0 ml medications Current Medications Medications Dose Ordered Sig/Nilesh Route Start Time Stop Time Status Last Admin Dose Admin Sodium Chloride 1,000 ml @ 120 mls/hr Q8H20M IV 01/26/25 20:45 01/27/25 21:04 120 MLS/HR Ondansetron HCl 4 mg Q4HP PRN IV 01/26/25 20:45 Docusate Sodium 100 mg BIDPRN PRN PO 01/26/25 20:45 Acetaminophen 650 mg Q6HP PRN PO 01/26/25 20:45 Nitroglycerin 0.4 mg Q5MINP PRN SL 01/26/25 20:45 Vancomycin HCl 0 ml @ 0 mls/hr UD IV 01/26/25 21:30 Cefepime HCl 50 ml @ 12.5 mls/hr Q12HR IV 01/27/25 10:00 01/27/25 21:03 12.5 MLS/HR Pantoprazole Sodium 40 mg DAILY IV 01/27/25 10:00 01/27/25 09:04 40 MG Gabapentin 300 mg TID PO 01/27/25 06:00 01/27/25 21:03 300 MG Diagnostic Test (Pha) 1 strip Q6HR 01/27/25 06:00 01/27/25 17:40 1 STRIP Insulin Human Regular Q6HR SC 01/27/25 06:00 Dextrose 50 ml UD PRN IV 01/27/25 01:00 Lidocaine 1 patch DAILY TOP 01/27/25 10:00 01/27/25 09:02 1 PATCH Duloxetine HCl 60 mg DAILY PO 01/27/25 10:00 01/27/25 09:04 60 MG Morphine Sulfate 1 mg Q4HP PRN IV 01/27/25 09:15 01/27/25 21:07 1 MG Insulin Glargine 20 units BID@1000,2200 SC 01/27/25 22:00 01/27/25 21:04 20 UNITS Examination General Appearance: Alert, Oriented X3, Cooperative, No acute distress HEENT: Atraumatic, PERRLA, EOMI, Mucous membrane moist/pink Respiratory: Clear to auscultation, Normal air movement Cardiovascular: Regular rate, Normal S1, Normal S2, No murmurs, no chest wall tenderness Abdominal: Normal bowel sounds, Soft, No tenderness, No hepatospenomegaly, No masses Extremities: No clubbing, No cyanosis, No edema, Normal pulses, No tenderness/swelling Skin: There is a swelling at anterior abdominal wall 3 x 4 cm, with purulent discharge. There is also a small 1 x 1 painful swelling at buttock area. Neuro: Normal gait, Normal speech, Strength at 5/5 X4 ext, Normal tone, Sensation intact, Cranial nerves 3-12 NL, Reflexes 2+ Psych/Mental Status: Mental status NL, Mood NL laboratory and microbiology Laboratory Tests 01/27/25 05:12 Test 01/27/25 05:12 Range/Units Serum Glucose 93 74-106 mg/dL Microbiology Date/Time Source Procedure Growth Status 01/26/25 21:11 Blood Blood Culture - Preliminary NO GROWTH AFTER 24 HOURS OF INCUBATION. Resulted Labs and/or images reviewed: Labs reviewed by me, Image(s) reviewed by me Problem List/Assessment/Plan Problem List/Assessment/Plan Sepsis, likely due to cellulitis/abscess Abscess of anterior abdominal wall and sacral area Syncope, likely vasovagal History of stroke Diabetes type 2 Hypertension Dyslipidemia MARLYN, on CKD grade 3A, likely VMN Mild anemia History of gout Charcot arthropathy Insomnia Irritable bowel syndrome * CT scan shows, A 3.1 X 2.4 X 3.6 cm thick walled fluid collection in the anterior lower abdominal wall with surrounding inflammation, suspicious for abscess * Ultrasound shows, Two fluid collections measures: 2.1 x 1.7 x 2.9 cm and 3.1 x 2.9 x 3.1 cm Plan/recommendation IR consulted, drained anterior abdominal wall abscess Empiric antibiotic vancomycin and cefepime IV fluid Continue home meds Blood/wound culture DIET: Diabetic diet DVT PROPHYLAXIS: Lovenox CODE STATUS: Goal of care discussed for more than 18 minutes, full code DISPOSITION: Med/surge Patient's status and plan discussed with the patient. Case discussed with Dr. Deal. Plan discussed with: Patient, Other (RN) My Orders My Orders Orders - MENG KING RESDIMARYAM Procedure Category Date Status Time Orthostatic Vital ORDERS 01/27/25 Transmitted Signs 07:37 Morphine Sulfate PHA 01/27/25 In Process Injection 09:15 Insulin Lantus PHA 01/27/25 In Process (Glargine) (Lantus) 22:00 * Radiologist Consult CONS 01/27/25 Transmitted 12:47 Consistent DIET 01/27/25 Transmitted Carb([facility])Diabetes Lunch MENG KING RESDIENT Jan 27, 2025 21:44
[2025-01-27] MEDS ORDERED: AMITRIPTYLINE HCL 25 MG TAB PO SCH (22:00)
[2025-01-28] VITALS (7 sets, daily range): BP systolic 102–153; BP diastolic 71–95; PULSE 81–93; RESP 15–20; TEMP 96.5–98.1; O2SAT 97–100
[2025-01-28] MEDS: traZODone HCL 50 MG TAB PO ONE (00:08)
[2025-01-28] MEDS: SODIUM CHLORIDE 0.9% 500 ML IV ONE (00:26)
[2025-01-28] MEDS: RIVAROXABAN 15 MG TAB PO SCH (00:26)
[2025-01-28] MEDS: SODIUM CHLORIDE 0.9% 1,000 ML IV SCH (05:45)
[2025-01-28] MEDS: GABAPENTIN 300 MG CAP PO SCH (05:53)
[2025-01-28] MEDS: SODIUM CHLORIDE 0.9% 1,500 ML IV ONE (05:55)
[2025-01-28 06:03] LABS: Basophils # (auto) 0 10 ^3/uL (0-0.2); Basophils % (auto) 0.4 % (0.0-2.0); Eosinophils # (auto) 0.2 10 ^3/uL (0-0.8); Eosinophils % (auto) 2.8 % (0.0-7.0); Hemoglobin 11.4 g/dL (12.2-16.2); Lymphocytes # (auto) 2.5 10 ^3/uL (0.4-5.4); Lymphocytes % (auto) 27.2 % (10.0-50.0); Mean Corpuscular Hemoglobin 29.9 pg (28.0-32.0); Mean Corpuscular Hgb Conc. 34.5 g/dL (32.0-36.0); Mean Corpuscular Volume 86.6 fL (80.0-100.0); Monocytes # (auto) 0.6 10 ^3/uL (0-1.3); Monocytes % (auto) 6.5 % (0.0-12.0); Neutrophils # (auto) 5.7 10 ^3/uL (1.6-8.6); Neutrophils % (auto) 63.1 % (37.0-80.0); Platelet Count (auto) 222 10^3/uL (140-450); Red Blood Cells 3.81 10^6/uL (4.0-5.20); Red Cell Distribution Width 13.7 % (11.8-14.3)
[2025-01-28 06:13] LABS: Anion Gap 10 (5-15); Carbon Dioxide 27 mmol/L (20-31); Chloride 106 mmol/L (98-107); Potassium 3.9 mmol/L (3.5-5.1); Sodium 143 mmol/L (136-145)
[2025-01-28 06:14] LABS: Calcium 9.3 mg/dL (8.7-10.4)
[2025-01-28 06:19] LABS: BUN/Creatinine Ratio 23.3 (10.0-20.0); Glucose 82 mg/dL (74-106)
[2025-01-28 06:29] LABS: Blood Urea Nitrogen 28 mg/dL (9-23)
[2025-01-28] MEDS: VANCOMYCIN 1GM/200ML PM 200 ML IV ONE (10:04)
--- NOTE | 2025-01-28 15:56 | DVHPN2 ---
Assessment/Plan Assessment/Plan progress note seen during rounds, improving, c/w iv abx Physical exam aox4 overweight PERRLA MMM s1 s2 rrr CTAB abdominal wall abscess with drainage Labs ekg imaging reviewed Assessment and plan Sepsis, likely due to cellulitis/abscess Abscess of anterior abdominal wall and sacral area Syncope, likely vasovagal History of stroke Diabetes type 2 Hypertension Dyslipidemia MARLYN, on CKD grade 3A, likely VMN Mild anemia History of gout Charcot arthropathy Insomnia Irritable bowel syndrome c/w iv abx resume home meds diet cc dvt ppx lovenox Plan discussed with: Patient Date of Service: Jan 28, 2025 Billing Provider: CESAR COREY MD Common Visit Codes: [id number] INP/OBS CARE(HIGH) CESAR COREY MD Jan 28, 2025 15:56
--- NOTE | 2025-01-28 17:24 | DVHSR ---
APPROVED REPORT EXAM: Two-dimensional and M-mode echocardiogram with Doppler and color Doppler. Blood Pressure: 117/69 mmHg INDICATION risk stratification of procedure RISK FACTORS Obesity: Height: 5'2, Weight: 149 DIMENSIONS LVDd3.8 (3.8-5.7cm)LA (2D)3.6 (1.9-4.0cm)Aortic Root3.1 (2.0-3.7cm) LVDs2.4 (2.5-4.0cm)LA (MM) (1.9-4.0cm)Aortic Cusp Exc1.3 (1.5-2.0cm) EF (%) 60.0 (55-70%)Rt. Atrium2.9 (1.9-4.0cm)Asc. Aorta cm IVSd1.2 (0.7-1.1cm)RV (D) (1.8-2.4cm) PWd1.0 (0.7-1.1cm) Mitral Valve MitralMitral Stenosis E wave0.67m/sMV Mean GR.mmHg A wave1.03m/sMV Peak GR.mmHg E/A ratio0.72D MVAcm2 DECEL [id number] 1/2 [place] Aortic Valve Aortic ValveAortic Stenosis V11.20m/[place] Mean GR.6mmHg V21.57m/[place] Peak GR.10mmHg LVOT Diameter2.0 (1.8-2.4cm)Doppler AVA2.40cm2 Pulmonic Valve V21.24m/s Other Information Technically limited study due to body habitus. Conclusion Technically good study. Sinus rhythm. Left atrial enlargement. Valves are normal. EF of 60% with normal RV function. Dopplers unremarkable. No pericardial effusion masses or vegetations.
[2025-01-28] MEDS: traZODone HCL 50 MG TAB PO SCH (21:12)
[2025-01-29 01:00] VITALS: BP 98/67; PULSE 80; RESP 15; TEMP 98.4; O2SAT 95
[2025-01-29 05:00] VITALS: BP 96/60; PULSE 84; RESP 16; TEMP 98; O2SAT 100
[2025-01-29 06:08] LABS: Anion Gap 9 (5-15); Carbon Dioxide 29 mmol/L (20-31); Chloride 105 mmol/L (98-107); Potassium 3.6 mmol/L (3.5-5.1); Sodium 143 mmol/L (136-145)
[2025-01-29 06:14] LABS: BUN/Creatinine Ratio 20.5 (10.0-20.0); Glucose 76 mg/dL (74-106)
[2025-01-29 06:16] LABS: Blood Urea Nitrogen 23 mg/dL (9-23); Calcium 8.5 mg/dL (8.7-10.4)
[2025-01-29 08:00] VITALS: PULSE 62; PULSE 82; RESP 18; O2SAT 98
[2025-01-29 09:00] VITALS: BP 109/74; PULSE 80; RESP 16; TEMP 97.5; O2SAT 97
--- NOTE | 2025-01-29 10:46 | DVHPNRES ---
Progress Note Date Seen: Jan 29, 2025 Resident Creating Document: MENG KING MILKA Has the PT tested + for MRSA If YES, has PT been informed?: No Medical Necessity Reason Pt with a Central, PICC or Fol: No Subjective Review of Systems Patient is seen and examined at the bedside. Patient is feeling better. But still complained of pain at the buttock area. Objective vital signs Vital Sign Date Time Temp Pulse Resp B/P (MAP) Pulse Ox O2 Delivery O2 Flow Rate FiO2 01/29/25 09:00 97.5 80 16 109/74 (86) 97 97.5 01/29/25 08:00 Nasal Cannula* 2 28 Total Intake and Output 01/28/25 01/28/25 01/29/25 15:00 23:00 07:00 Intake Total 700 ml 700 ml Balance 700 ml 700 ml medications Current Medications Medications Dose Ordered Sig/Nilesh Route Start Time Stop Time Status Last Admin Dose Admin Ondansetron HCl 4 mg Q4HP PRN IV 01/26/25 20:45 Docusate Sodium 100 mg BIDPRN PRN PO 01/26/25 20:45 Acetaminophen 650 mg Q6HP PRN PO 01/26/25 20:45 Nitroglycerin 0.4 mg Q5MINP PRN SL 01/26/25 20:45 Vancomycin HCl 0 ml @ 0 mls/hr UD IV 01/26/25 21:30 Cefepime HCl 50 ml @ 12.5 mls/hr Q12HR IV 01/27/25 10:00 01/29/25 09:55 12.5 MLS/HR Pantoprazole Sodium 40 mg DAILY IV 01/27/25 10:00 01/29/25 09:56 40 MG Diagnostic Test (Pha) 1 strip Q6HR 01/27/25 06:00 01/29/25 05:58 1 STRIP Insulin Human Regular Q6HR SC 01/27/25 06:00 Dextrose 50 ml UD PRN IV 01/27/25 01:00 Lidocaine 1 patch DAILY TOP 01/27/25 10:00 01/27/25 09:02 1 PATCH Duloxetine HCl 60 mg DAILY PO 01/27/25 10:00 01/29/25 09:55 60 MG Morphine Sulfate 1 mg Q4HP PRN IV 01/27/25 09:15 01/28/25 23:37 1 MG Insulin Glargine 20 units BID@1000,2200 SC 01/27/25 22:00 01/29/25 10:03 20 UNITS Trazodone HCl 50 mg HS PO 01/28/25 22:00 01/28/25 21:12 50 MG Gabapentin 600 mg TID PO 01/28/25 06:00 01/29/25 05:58 600 MG Rivaroxaban 15 mg QPM PO 01/28/25 00:00 01/28/25 18:29 15 MG Sodium Chloride 1,000 ml @ 125 mls/hr Q8H IV 01/28/25 05:45 01/29/25 06:32 125 MLS/HR Vancomycin HCl 150 ml @ 150 mls/hr Q18H IV 01/29/25 09:00 Examination General Appearance: Alert, Oriented X3, Cooperative, No acute distress HEENT: Atraumatic, PERRLA, EOMI, Mucous membrane moist/pink Respiratory: Clear to auscultation, Normal air movement Cardiovascular: Regular rate, Normal S1, Normal S2, No murmurs, no chest wall tenderness Abdominal: Normal bowel sounds, Soft, No tenderness, No hepatospenomegaly, No masses Extremities: No clubbing, No cyanosis, No edema, Normal pulses, No tenderness/swelling Skin: There is a swelling at anterior abdominal wall 3 x 4 cm, with purulent discharge. There is also a small 1 x 1 painful swelling at buttock area. Neuro: Normal gait, Normal speech, Strength at 5/5 X4 ext, Normal tone, Sensation intact, Cranial nerves 3-12 NL, Reflexes 2+ Psych/Mental Status: Mental status NL, Mood NL laboratory and microbiology Laboratory Tests 01/29/25 05:28 01/28/25 05:15 Test 01/29/25 05:28 Range/Units Serum Glucose 76 74-106 mg/dL Microbiology Date/Time Source Procedure Growth Status 01/26/25 21:11 Blood Blood Culture - Preliminary NO GROWTH AFTER 48 HOURS OF INCUBATION. Resulted Labs and/or images reviewed: Labs reviewed by me, Image(s) reviewed by me Problem List/Assessment/Plan Problem List/Assessment/Plan Sepsis, likely due to cellulitis/abscess Abscess of anterior abdominal wall and sacral area Syncope, likely vasovagal History of stroke Diabetes type 2 Hypertension Dyslipidemia MARLYN, on CKD grade 3A, likely VMN Mild anemia History of gout Charcot arthropathy Insomnia Irritable bowel syndrome * CT scan shows, A 3.1 X 2.4 X 3.6 cm thick walled fluid collection in the anterior lower abdominal wall with surrounding inflammation, suspicious for abscess * Ultrasound shows, Two fluid collections measures: 2.1 x 1.7 x 2.9 cm and 3.1 x 2.9 x 3.1 cm Plan/recommendation IR consulted, drained anterior abdominal wall abscess Empiric antibiotic vancomycin and cefepime IV fluid Continue home meds Blood/wound culture DIET: Diabetic diet DVT PROPHYLAXIS: Lovenox CODE STATUS: Goal of care discussed for more than 18 minutes, full code DISPOSITION: Med/surge Patient's status and plan discussed with the patient. Case discussed with Dr. Deal. Plan discussed with: Patient, Other (RN) [facility]ENG KING [facility] Jan 29, 2025 10:46
[2025-01-29] MEDS: VANCOMYCIN 750mg/150ml 150 ML IV SCH (11:25)
[2025-01-29 12:42] VITALS: BP_SYST 141; BP_SYST 152; BP_SYST 153; BP_DIAS 76; BP_DIAS 79; BP_DIAS 83; PULSE 60; PULSE 62; PULSE 71; RESP 14; TEMP 97.1; O2SAT 95
[2025-01-29] MEDS ORDERED: CIPR750T3 PO (14:37)
--- NOTE | 2025-01-29 15:02 | DVHDSRES ---
Discharge Summary Date of Admission Resident Creating Document: MENG KING RESDIENT Jan 26, 2025 at 20:38 Date of Discharge: Jan 29, 2025 Admitting Diagnosis Intractable abdominal pain Labs/Diagnostic Data: Laboratory Results Test 01/29/25 11:27 01/29/25 05:28 01/28/25 05:15 01/27/25 05:12 POC Glucose 107 mg/dl (70-106) Sodium Level 143 mmol/L (136-145) Potassium Level 3.6 mmol/L (3.5-5.1) Chloride Level 105 mmol/L (98-107) Carbon Dioxide Level 29 mmol/L (20-31) Anion Gap 9 (5-15) Blood Urea Nitrogen 23 mg/dL (9-23) Creatinine 1.12 mg/dL (0.550-1.02) Glomerular Filtration Rate Calc 58 mL/min (>90) BUN/Creatinine Ratio 20.5 (10.0-20.0) Serum Glucose 76 mg/dL (74-106) Calcium Level 8.5 mg/dL (8.7-10.4) Random Vancomycin Level 11.0 ug/mL (5-10) White Blood Count 9.0 10^3/uL (4.4-10.8) Red Blood Count 3.81 10^6/uL (4.0-5.20) Hemoglobin 11.4 g/dL (12.2-16.2) Hematocrit 33.0 % (36.0-46.0) Mean Corpuscular Volume 86.6 fL (80.0-100.0) Mean Corpuscular Hemoglobin 29.9 pg (28.0-32.0) Mean Corpuscular Hemoglobin Concent 34.5 g/dL (32.0-36.0) Red Cell Distribution Width 13.7 % (11.8-14.3) Platelet Count 222 10^3/uL (140-450) Mean Platelet Volume 8.6 fL (6.9-10.8) Neutrophils (%) (Auto) 63.1 % (37.0-80.0) Lymphocytes (%) (Auto) 27.2 % (10.0-50.0) Monocytes (%) (Auto) 6.5 % (0.0-12.0) Eosinophils (%) (Auto) 2.8 % (0.0-7.0) Basophils (%) (Auto) 0.4 % (0.0-2.0) Neutrophils # (Auto) 5.7 10 ^3/uL (1.6-8.6) Lymphocytes # (Auto) 2.5 10 ^3/uL (0.4-5.4) Monocytes # (Auto) 0.6 10 ^3/uL (0-1.3) Eosinophils # (Auto) 0.2 10 ^3/uL (0-0.8) Basophils # (Auto) 0 10 ^3/uL (0-0.2) Nucleated Red Blood Cells 0.0 % Total Bilirubin 0.4 mg/dL (0.2-1.0) Aspartate Amino Transferase (AST) 19 U/L (<34) Alanine Aminotransferase (ALT) 29 U/L (7-40) Alkaline Phosphatase 100 U/L (46-116) B-Type Natriuretic Peptide 6.54 pg/mL (0-100) Total Protein 6.7 g/dL (5.7-8.2) Albumin 4.1 g/dL (3.2-4.8) Hepatitis B Surface Antigen Negative (Negative) Hepatitis C Antibody Negative (Negative) Test 01/26/25 21:11 01/26/25 15:12 01/26/25 10:55 Prothrombin Time 11.8 sec (9.3-11.8) Prothrombin Time INR 1.13 (0.9-1.15) Lactic Acid Level 0.8 mmol/L (0.4-2.0) Plasma/Serum Blood Alcohol 3.6 mg/dL (<10) Urine Color Yellow (Yellow) Urine Clarity Turbid (Clear) Urine pH 5.5 (5.0-9.0) Urine Specific [place] 1.030 (1.001-1.035) Urine Protein 1+ (Negative) Urine Ketones 1+ (Negative) Urine Blood Negative /uL (Negative) Urine Nitrite Negative (Negative) Urine Bilirubin Negative (Negative) Urine Urobilinogen 2 mg/dL (Negative) Urine Leukocyte Esterase Negative /uL (Negative) Urine RBC 1 /hpf (0 - 4) Urine Microscopic WBC 1 /HPF (0-5) Urine Squamous Epithelial Cells Mod /hpf (<5) Urine Bacteria Few /hpf (None Seen) Urine Hyaline Casts Mod /lpf (0 - 2) Urine Mucus Few (None Seen) Urine Glucose Normal mg/dL (Normal) Urine Opiates Screen Pos (NEGATIVE) Urine Fentanyl Screen Neg (NEGATIVE) Urine Barbiturates Screen Neg (NEGATIVE) Urine Phencyclidine Screen Neg (NEGATIVE) Urine Amphetamines Screen Neg (NEGATIVE) Urine Benzodiazepines Screen Neg (NEGATIVE) Urine Cocaine Screen Neg (NEGATIVE) Urine Cannabinoids Screen Neg (NEGATIVE) Hemoglobin A1c 6.3 % A1C (<5.7) Lipase 47 U/L (12-53) Other Laboratory Tests 01/29/25 05:28 01/28/25 05:15 Brief Hx & Hospital Course: Ms. Ignacio Alcantar, a 54-year-old female with a medical history of anxiety, dyslipidemia, history of obesity, cerebrovascular accident (CVA), depression, diabetes mellitus (DM), hypertension (HTN), and pulmonary embolism (PE) on Xarelto, irritable bowel syndrome, chronic back pain, gouty arthritis, and a surgical history of cholecystectomy and , presented to the emergency room via EMS, with syncope, left lower quadrant (LLQ) abdominal pain, and generalized weakness. The abdominal pain, described as cramping and rated 7/10, has been ongoing for 1.5 weeks and was previously evaluated at urgent care, where an abdominal mass was identified. She returned to urgent care earlier today due to worsening pain and was found to be hypotensive with systolic blood pressure in the 90s, prompting referral to the ER. En route, she experienced a syncopal episode at a gas station, reportedly unconscious for 34 minutes per her son. Upon arrival, she was lethargic but alert and oriented, eventually returned to baseline. No pertinent gynecological history was noted. Past Medical History: anxiety, dyslipidemia, history of obesity, cerebrovascular accident (CVA), depression, diabetes mellitus (DM), hypertension (HTN), and pulmonary embolism (PE) on Xarelto, irritable bowel syndrome, chronic back pain, gouty arthritis Hospital Course: Patient was admitted on the line of sepsis due to anterior abdominal wall abscess. CT scan showed, A 3.1 X 2.4 X 3.6 cm thick walled fluid collection in the anterior lower abdominal wall with surrounding inflammation, suspicious for abscess. Ultrasound shows, Two fluid collections measures: 2.1 x 1.7 x 2.9 cm and 3.1 x 2.9 x 3.1 cm. Patient was started on empiric antibiotic of vancomycin and cefepime, and IV fluid. Intervention Radiology consulted, drained anterior abdominal wall abscess. Patient also had a small abscess 1 x 1 x 1 cm, and treated medically. Blood tests are within 48 hours showed no growth. During hospital admission home meds were continued. On 01/29 surgeon for, and the patient was feeling better since admission. Discharge plan discussed with the patient the patient was discharged home. Discharge plan: Follow up with the PCP within 1 week of the discharge. Follow up with the discharge Clinic within 1 week of the discharge. Tablet ciprofloxacin 750 mg daily for 7 days Continue home med Condition at Discharge: Good Final Diagnosis/Problems List Sepsis, likely due to cellulitis/abscess Abscess of anterior abdominal wall and sacral area Intractable abdominal pain, likely due to anterior wall abdominal abscess Syncope, likely vasovagal History of stroke Diabetes type 2 Hypertension Dyslipidemia MARLYN, on CKD grade 3A, likely VMN Mild anemia History of gout Charcot arthropathy Insomnia Irritable bowel syndrome Discharge Disposition: Home Discharge Instruct/Medications Diet: Consistent carbohydrate Activity: No Restrictions, As Tolerated Follow Up/Referral: Follow up with the PCP within 1 week of the discharge. Follow up with the discharge Clinic and outpatient basis. Medications: Tablet ciprofloxacin 750 mg daily for 7 days Discharge Statement: "Patient was advised to return to the ER or call 911 if any headaches, dizziness, shortness of breath, chest pain, abdominal pain, bleeding, fevers, or worsening of medical condition. Patient was counseled about treatment plan, medications, possible side effects, patientverbalized understanding. All questions were answered to the best of my ability. This discharge took greater then 30 minutes in planning, reviewing documentation, counseling the patient, and discussing with other team members." ASSESSMENT ASSESSMENT Assessment ANTERIOR ABDOMINAL WALL ABSCESS MENG KING RESENT Jan 29, 2025 15:02
[2025-01-29 17:03] VITALS: BP_SYST 0; BP_SYST 154; BP_DIAS 96; PULSE 91; RESP 16; TEMP 97.8; O2SAT 98
== END 2025-01-29 18:00 | disposition home or self-care (01) | DRG 720 ==
LOC: ER 10:42 → EDBD 10:42 → OVERFLOW 20:38 → TELE-WESTW 20:44
PROVIDERS: ADMIT Student in an Organized Health Care Education/Training Program; ATTEND Emergency Medicine
DX: A41.9 Sepsis, unspecified organism (principal); N17.0 Acute kidney failure with tubular necrosis; E11.42 Type 2 diabetes mellitus with diabetic polyneuropathy; E11.610 Type 2 diabetes mellitus with diabetic neuropathic arthropathy; L02.211 Cutaneous abscess of abdominal wall; D63.8 Anemia in other chronic diseases classified elsewhere; E11.22 Type 2 diabetes mellitus with diabetic chronic kidney disease; L02.212 Cutaneous abscess of back [any part, except buttock and flank]; L03.311 Cellulitis of abdominal wall; N18.31 Chronic kidney disease, stage 3a; E66.9 Obesity, unspecified; I34.81 Nonrheumatic mitral (valve) annulus calcification; I12.9 Hypertensive chronic kidney disease with stage 1 through stage 4 chronic kidney disease, or unspecified chronic kidney disease; G47.00 Insomnia, unspecified; K58.9 Irritable bowel syndrome, unspecified; E78.5 Hyperlipidemia, unspecified; M10.9 Gout, unspecified; G89.29 Other chronic pain; F41.8 Other specified anxiety disorders; M54.9 Dorsalgia, unspecified; Z68.27 Body mass index [BMI] 27.0-27.9, adult; L02.818 Cutaneous abscess of other sites; Z86.73 Personal history of transient ischemic attack (TIA), and cerebral infarction without residual deficits; Z90.49 Acquired absence of other specified parts of digestive tract; Z86.711 Personal history of pulmonary embolism; Z79.01 Long term (current) use of anticoagulants
CPT/HCPCS: 36415; 74176; 76705; 80048; 80053; 80202; 80307; 80320; 81001; 82962; 83036; 83605; 83690; 83880; 85025; 85610; 86803; 87040; 87340; 93005; 93306; 96365; 96375; C1729; G0378; J0692; J1815; J2405; J2470

== ENCOUNTER 2025-04-07 14:26 | Inpatient (IN) | payer MEDICAID ==
[~2025-04-07] VITALS: Ht 162.6 cm; Wt 70.9 kg
[~2025-04-07 14:26] MED LIST changes: +CIPR750T3 PO
--- NOTE | 2025-04-07 14:39 | ED.PDOC ---
History of Present Illness HPI Comments This is a 54-year-old female with past medical history of hypertension, type 2 diabetes mellitus, CVA with left-sided weakness, presented to the ED via EMS with a chief complaint of generalized weakness, fatigue and low blood sugar 53 prior to this visit. According to the EMS the cardiac off because of the low blood sugar and on route to the hospital gave D10 25, 1 L normal saline bolus and in the ED blood sugar raised to 162. The patient complains of generalized weakness, fatigue and right lower quadrant abdominal pain. She denies fever, chills, shortness of breath, diffuse abdominal pain, nausea, vomiting, dysuria, hematuria or any change in bowel habit. Chief Complaint: Hypoglycemia Time Seen by MD: 14:28 Primary Care Provider: UNKNOWN Allergies: Coded Allergies: NO KNOWN ALLERGIES (Unverified , 08/25/22) Home Meds Active Scripts Ciprofloxacin Hcl (Ciprofloxacin Hcl) 750 Mg Tab, 750 MG PO DAILY for 7 Days, #7 TAB Prov:SHAGUFTAMENG WOOD RESDIENT 01/29/25 Reported Medications Semaglutide (Ozempic) 2 Mg/1.5 Ml Inj, 2 MG SC, INJ 11/27/22 Insulin Glargine (Basaglar Kwikpen) 100 Unit/Ml Inj, 100 UNIT SC, INJ 11/27/22 Bumetanide (Bumetanide) 2 Mg Tab, 1 MG PO QAM, TAB 11/27/22 Bumetanide (Bumex) 2 Mg Tab 11/27/22 Epa Ethyl Carmen (VASCEPA) 1 Gm Cap, 2 GM OR, CAP 11/27/22 Ferrous Sulfate (Ferosul) 325 Mg Tab, 325 MG PO, TAB 11/27/22 Trazodone Hcl (Trazodone Hcl) 100 Mg Tab, 50 MG PO QPM, TAB 11/27/22 Cholecalciferol (D3) 50 Mcg Tab, 50 MCG PO, TAB 11/27/22 Allopurinol (ZYLOPRIM TABLET) 100 Mg Tb, 100 MG PO DAILY, TAB 11/27/22 Gabapentin (Gabapentin) 600 Mg Tab, 1000 MG PO TID, TAB 11/27/22 Insulin Lispro (Human) (Humalog) 100 Unit/Ml Inj, 100 UNIT SC, INJ 11/27/22 Amitriptyline Hcl (Amitriptyline Hcl) 25 Mg Tab, 50 MG PO HS for 30 Days, MG 12/16/18 Duloxetine Hcl (Cymbalta) 60 Mg Cap, 60 MG PO DAILY, CAP 12/16/18 Rivaroxaban (Xarelto Tablet) 15 Mg Tb, 15 MG PO BID for ON HOLD 08/26/22 05/17/18 Atorvastatin Calcium (ATORVASTATIN CALCIUM) 80 Mg Tab, 1 TAB PO QP, #30 TAB 5 Refills 05/17/18 Past Medical History PAST MEDICAL HISTORY: Anxiety, CVA, Depression, DM, HTN, PE Surgical History: Cholecystectomy, INGREDIENT MIXER History: No Pertinent INGREDIENT MIXER History Family History Family History: No family hx of HTN Social History Smoker: Non-Smoker Alcohol: Denies ETOH Use Drugs: Denies Drug Use Lives In: Home Constitutional: reports: fatigue, weakness; denies: chills, diaphoresis, fever, malaise, sweats, others EENTM: denies: blurred vision, double vision, ear bleeding, ear discharge, ear drainage, ear pain, ear ringing, eye pain, eye redness, hearing loss, mouth pain, mouth swelling, nasal discharge, nose bleeding, nose congestion, nose pain, photophobia, tearing, throat pain, throat swelling, voice changes, others Respiratory: denies: cough, hemoptysis, orthopnea, SOB at rest, shortness of breath, SOB with excertion, stridor, wheezing, others Cardiovascular: reports: dizzy spells; denies: chest pain, diaphoresis, Dyspnea on exertion, edema, irregular heart beat, left arm pain, lightheadedness, palpitations, PND, syncope, others Gastrointestinal: reports: abdominal pain; denies: abdomen distended, blood streaked bowels, constipated, diarrhea, dysphagia, difficulty swallowing, hematemesis, melena, nausea, poor appetite, poor fluid intake, rectal bleeding, rectal pain, vomiting, others Genitourinary: denies: abnormal vagina bleeding, burning, dyspareunia, dysuria, flank pain, frequency, hematuria, incontinence, pain, , vagina discharge, urgency, others Neurological: reports: dizziness, left sided weakness; denies: fainting, headache, left sided numbness, numbness, paresthesia, pre-existing deficit, right sided numbness, right sided weakness, seizure, speech problems, tingling, tremors, weakness, others Musculoskeletal: denies: back pain, gout, joint pain, joint swelling, muscle pa in, muscle stiffness, neck pain, others Integumetry: denies: bruises, change in color, change in hair/nails, dryness, laceration, lesions, lumps, rash, wounds, others Allergic/Immunocompromised: denies: Difficulty Healing, Frequent Infections, Hives, Itching, others Hematologic/Lymphatic: denies: anemia, blood clots, easy bleeding, easy bruising, swollen glands, others Endocrine: denies: excessive hunger, excessive sweating, excessive thirst, excessive urination, flushing, intolerance to cold, intolerance to heat, unexplained weight gain, unexplained weight loss, others Psychiatric: denies: anxiety, bipolar disorder, depression, hopeless, panic disorder, schizophrenia, sleepless, suicidal, others Physical Exam General Appearance: Mild Distress HEENT: Normal ENT Inspection, Pharynx Normal, TMs Normal Neck: Full Range of Motion, Non-Tender, Normal, Normal Inspection Respiratory: Chest Non-Tender, Lungs Clear, No Accessory Muscle Use, No Respiratory Distress, Normal Breath Sounds Cardiovascular: No Edema, No JVD, No Murmur, No Gallop, Normal Peripheral Pulses, Regular Rate/Rhythm Breast Exam: Deferred Gastrointestinal: No Organomegaly, Non Tender, No Pulsatile Mass, Normal Bowel Sounds, Soft Genitalia: Deferred Pelvic: Deferred Rectal: Deferred Extremities: Other (Chronic fracture of the right ankle, wheelchair-bound and left-sided weakness) Neurologic: baggage smasher II-XII nml as Tested, Motor Weakness, No Sensory Deficits Cerebellar Function: NOT DONE Reflexes: NOT DONE Skin: NOT DONE Peripheral Pulses: 2+ carotid (R), 2+ carotid (L), 2+ femoral (R), 2+ femoral (L), 2+ dorsalis pedis (R), 2+ dorsalis pedis (L), 2+ Radial (R), 2+ Radial (L), 2+ Brachial (R), 2+ Brachial (L) Lymphatic: NOT DONE Was a procedure done? Was a procedure done?: No Differential Dx Considerations may include: Hypoglycemia likely insulin induced, generalized weakness, sepsis, MARLYN X-Ray, Labs, Meds, VS Vital Signs Date Time Temp Pulse Resp B/P (MAP) Pulse Ox O2 Delivery O2 Flow Rate FiO2 04/07/25 14:59 98 04/07/25 14:30 98.0 90 12 137/73 96 98.0 Lab Test 04/07/25 15:27 04/07/25 13:17 Range/Units White Blood Count 6.2 4.4-10.8 10^3/uL Red Blood Count 3.79 L 4.0-5.20 10^6/uL Hemoglobin 11.3 L 12.2-16.2 g/dL Hematocrit 34.0 L 36.0-46.0 % Mean Corpuscular Volume 89.7 80.0-100.0 fL Mean Corpuscular Hemoglobin 29.8 28.0-32.0 pg Mean Corpuscular Hemoglobin Concent 33.2 32.0-36.0 g/dL Red Cell Distribution Width 14.0 11.8-14.3 % Platelet Count 206 140-450 10^3/uL Mean Platelet Volume 8.3 6.9-10.8 fL Neutrophils (%) (Auto) 46.3 37.0-80.0 % Lymphocytes (%) (Auto) 39.8 10.0-50.0 % Monocytes (%) (Auto) 12.7 H 0.0-12.0 % Eosinophils (%) (Auto) 0.8 0.0-7.0 % Basophils (%) (Auto) 0.4 0.0-2.0 % Neutrophils # (Auto) 2.9 1.6-8.6 10 ^3/uL Lymphocytes # (Auto) 2.5 0.4-5.4 10 ^3/uL Monocytes # (Auto) 0.8 0-1.3 10 ^3/uL Eosinophils # (Auto) 0 0-0.8 10 ^3/uL Basophils # (Auto) 0 0-0.2 10 ^3/uL Nucleated Red Blood Cells 0.1 % Sodium Level 141 136-145 mmol/L Potassium Level 3.7 3.5-5.1 mmol/L Chloride Level 105 98-107 mmol/L Carbon Dioxide Level 26 20-31 mmol/L Anion Gap 10 5-15 Blood Urea Nitrogen 43 H 9-23 mg/dL Creatinine 1.68 H 0.550-1.02 mg/dL Glomerular Filtration Rate Calc 36 >90 mL/min BUN/Creatinine Ratio 25.6 H 10.0-20.0 Serum Glucose 93 74-106 mg/dL Lactic Acid Level Pending Calcium Level 9.0 8.7-10.4 mg/dL Troponin I High Sensitivity < 3 L </=34 ng/L Urine Color Yellow Yellow Urine Clarity Clear Clear Urine pH 5.0 5.0-9.0 Urine Specific [place] 1.013 1.001-1.035 Urine Protein Negative Negative Urine Ketones Negative Negative Urine Blood Negative Negative /uL Urine Nitrite Negative Negative Urine Bilirubin Negative Negative Urine Urobilinogen Normal Negative mg/dL Urine Leukocyte Esterase Negative Negative /uL Urine RBC None seen 0 - 4 /hpf Urine Microscopic WBC 1 0-5 /HPF Urine Squamous Epithelial Cells Few <5 /hpf Urine Bacteria None seen None Seen /hpf Urine Glucose Normal Normal mg/dL X-Ray, Labs, Meds, VS Comment CBC unremarkable and BMP showed elevated BUN, creatinine Images Reviewed?: Images reviewed and evaluated by me Time of 1ST Reevaluation: 16:09 Reevaluation 1ST: Improved Patient Education/Counseling: Diagnosis, Treatment Family Education/Counseling: No Family Present Comments A 54-year-old female brought into the ER via EMS for low blood sugar The patient was complaining of generalized weakness fatigue and tiredness for last couple of days. On route to hospital patient was given D10 25, IV normal saline bolus . CBC unremarkable and BMP demonstrated elevated BUN, creatinine likely MARLYN superimposed on CKD The patient will be admitted for further evaluation and management. SEPSIS Sepsis Screen Physician Orders Electrocardigram (04/07/25 14:39) Lactic Acid W/ Reflex Order (04/07/25 14:43) Vital Signs Date Time Temp Pulse Resp B/P (MAP) Pulse Ox O2 Delivery O2 Flow Rate FiO2 04/07/25 14:59 98 04/07/25 14:30 98.0 90 12 137/73 96 98.0 Laboratory Tests Test 04/07/25 15:27 Lactic Acid Level Pending White Blood Count 6.2 10^3/uL (4.4-10.8) Departure 1 Departure Time of Disposition: 16:14 Impression: Primary Impression: Hypoglycemia Additional Impression: Acute kidney injury superimposed on CKD Disposition: 09 ADMITTED INPATIENT Admit to: Med Surg Condition: Guarded Critical Care Note Critical Care Time?: No Stability Stability form required: No ANILA LEVINE RESIDENT Apr 07, 2025 14:39
[2025-04-07 15:41] LABS: Urine Protein, UAD Negative (Negative)
[2025-04-07 15:42] LABS: Hematocrit 34.0 % (36.0-46.0); Hemoglobin 11.3 g/dL (12.2-16.2); Mean Corpuscular Hemoglobin 29.8 pg (28.0-32.0); Mean Corpuscular Volume 89.7 fL (80.0-100.0); Nucleated Red Blood Cells % 0.1 %
[2025-04-07 15:49] LABS: Chloride 105 mmol/L (98-107); Potassium 3.7 mmol/L (3.5-5.1); Sodium 141 mmol/L (136-145)
[2025-04-07 15:50] LABS: Anion Gap 10 (5-15); Carbon Dioxide 26 mmol/L (20-31)
[2025-04-07 15:51] LABS: Calcium 9.0 mg/dL (8.7-10.4)
[2025-04-07 15:55] LABS: BUN/Creatinine Ratio 25.6 (10.0-20.0); Glucose 93 mg/dL (74-106)
[2025-04-07 15:58] LABS: Blood Urea Nitrogen 43 mg/dL (9-23)
[2025-04-07 16:11] LABS: Lactic Acid w/Reflex 2.2 mmol/L (0.4-2.0)
[2025-04-07] MEDS: SODIUM CHLORIDE 0.9% 500 ML IV ONE (16:47)
[2025-04-07] MEDS ORDERED: SODIUM CHLORIDE 0.9% 1,000 ML IV ONE (17:30)
--- NOTE | 2025-04-07 17:32 | DVHHP2 ---
Admitting Diagnosis: Shortness of breaths fatigue History of Present Illness This is a 54-year-old female with past medical history of hypertension, type 2 diabetes mellitus, CVA with left-sided weakness, presented to the ED via EMS with a chief complaint of generalized weakness, fatigue and low blood sugar 53 prior to this visit. According to the EMS the cardiac off because of the low blood sugar and on route to the hospital gave D10 25, 1 L normal saline bolus and in the ED blood sugar raised to 162. The patient complains of generalized weakness, fatigue and right lower quadrant abdominal pain. She denies fever, chills, shortness of breath, diffuse abdominal pain, nausea, vomiting, dysuria, hematuria or any change in bowel habit. PAST MEDICAL HISTORY: Anxiety, CVA, Depression, DM, HTN, PE Surgical History: Cholecystectomy, CUSTOMER SOLUTIONS REPRESENTATIVE History: No Pertinent CUSTOMER SOLUTIONS REPRESENTATIVE History Family History: No family hx of HTN Social History Smoker: Non-Smoker Alcohol: Denies ETOH Use Drugs: Denies Drug Use Lives In: Home Patient Family History: Diabetes mellitus G8 MOTHER, , Age: 63 FH: cancer G8 MOTHER, , Age: 63 (related with lung) Hypertension G8 FATHER Allergies: Coded Allergies: NO KNOWN ALLERGIES (Unverified , 08/25/22) Home Meds Active Scripts Ciprofloxacin Hcl (Ciprofloxacin Hcl) 750 Mg Tab, 750 MG PO DAILY for 7 Days, #7 TAB Prov:MENG KING RESDIENT 01/29/25 Reported Medications Semaglutide (Ozempic) 2 Mg/1.5 Ml Inj, 2 MG SC, INJ 11/27/22 Insulin Glargine (Basaglar Kwikpen) 100 Unit/Ml Inj, 100 UNIT SC, INJ 11/27/22 Bumetanide (Bumetanide) 2 Mg Tab, 1 MG PO QAM, TAB 11/27/22 Bumetanide (Bumex) 2 Mg Tab 11/27/22 Epa Ethyl Carmen (VASCEPA) 1 Gm Cap, 2 GM OR, CAP 11/27/22 Ferrous Sulfate (Ferosul) 325 Mg Tab, 325 MG PO, TAB 11/27/22 Trazodone Hcl (Trazodone Hcl) 100 Mg Tab, 50 MG PO QPM, TAB 11/27/22 Cholecalciferol (D3) 50 Mcg Tab, 50 MCG PO, TAB 11/27/22 Allopurinol (ZYLOPRIM TABLET) 100 Mg Tb, 100 MG PO DAILY, TAB 11/27/22 Gabapentin (Gabapentin) 600 Mg Tab, 1000 MG PO TID, TAB 11/27/22 Insulin Lispro (Human) (Humalog) 100 Unit/Ml Inj, 100 UNIT SC, INJ 11/27/22 Amitriptyline Hcl (Amitriptyline Hcl) 25 Mg Tab, 50 MG PO HS for 30 Days, MG 12/16/18 Duloxetine Hcl (Cymbalta) 60 Mg Cap, 60 MG PO DAILY, CAP 12/16/18 Rivaroxaban (Xarelto Tablet) 15 Mg Tb, 15 MG PO BID for ON HOLD 08/26/22 05/17/18 Atorvastatin Calcium (ATORVASTATIN CALCIUM) 80 Mg Tab, 1 TAB PO QP, #30 TAB 5 Refills 05/17/18 Current Medications Current Medications Medications (Trade) Dose Ordered Sig/Nilesh Route PRN Reason Start Time Stop Time Status Last Admin Ceftriaxone Sodium 50 ml @ 100 mls/hr DAILY@09 IV 04/08/25 09:00 UNV Azithromycin 250 ml @ 125 mls/hr DAILY IV 04/08/25 10:00 UNV Allopurinol (Zyloprim Tablet) 100 mg DAILY PO 04/08/25 10:00 UNV Amitriptyline HCl (Elavil Tablet) 50 mg HS PO 04/07/25 22:00 UNV Rivaroxaban (Xarelto Tablet) 15 mg BID PO 04/07/25 22:00 UNV Patient Own Medication 1 tab QP PO 04/07/25 19:00 UNV Patient Own Medication 1 mg QAM PO 04/08/25 07:00 UNV Patient Own Medication 60 mg DAILY PO 04/08/25 10:00 UNV Patient Own Medication 1,000 mg TID PO 04/07/25 22:00 UNV Vital Signs Vital Signs Date Time Temp Pulse Resp B/P (MAP) Pulse Ox O2 Delivery O2 Flow Rate FiO2 04/07/25 18:15 114 16 100 Room Air* 0 21 04/07/25 18:14 98.1 118/70 (86) 98.1 Physical Exam Patient is a 54 years old woman, well nourished well developed. No apparent distress HEENT-atraumatic normocephalic Heart-regular rate and rhythm Lungs decreased breath sounds bilaterally Abdomen soft nontender nondistended Musculoskeletal-no edema cyanosis Neuro-AO x3, no focal deficits SEPSIS Sepsis Screen Date sepsis recognized/suspect: Apr 07, 2025 Time Sepsis recognized/suspect: 1442 Recent Procedure: No On Antibiotic Therapy: No Respiratory Rate >20: No Heart Rate >90: No Temp<36 C (96.8 F) or >38.3 C: No SBP <90 or MAP <65 mmHG: No New Acute Mental Status Change: No Is the patient on CPAP, BIPAP,: No Physician Orders Electrocardigram (04/07/25 14:39) D5w/Sod Chlo 0.9% (D5w Ns 0.9%) (04/07/25 17:45) Urinalysis (04/07/25 18:12) Chest Xray 1 View (04/07/25 18:59) C-Reactive Protein (04/07/25 18:59) Ceftriaxone 1gm/50ml D5w (Rocephin) (04/08/25 09:00) Azithromycin 500mg/ 250ml (Zithromax 50 (04/08/25 10:00) Regular Diet (04/08/25 Breakfast) Respiratory Culture W/ Gs (04/07/25 18:59) Allopurinol Tablet (Zyloprim Tablet) (04/08/25 10:00) Amitriptyline Hcl Tablet (Elavil Tablet) (04/07/25 22:00) Rivaroxaban Tablet (Xarelto Tablet) (04/07/25 22:00) (Nf) Atorvastatin Calcium (04/07/25 19:00) (Nf) Bumetanide (04/08/25 07:00) (Nf) Duloxetine Hcl (Cymbalta) (04/08/25 10:00) (Nf) Gabapentin (04/07/25 22:00) Complete Blood Count (04/08/25 05:00) Complete Blood Count (04/09/25 05:00) Complete Blood Count (04/10/25 05:00) Complete Blood Count (04/11/25 05:00) Complete Blood Count (04/12/25 05:00) Comprehensive Metabolic Panel (04/08/25 05:00) Comprehensive Metabolic Panel (04/09/25 05:00) Comprehensive Metabolic Panel (04/10/25 05:00) Comprehensive Metabolic Panel (04/11/25 05:00) Comprehensive Metabolic Panel (04/12/25 05:00) Blood Culture (04/07/25 18:59) Kidney (04/07/25 19:03) Insulin Lantus (Glargine) (Lantus) (04/07/25 22:00) Admit (04/07/25 19:06) Code Status (04/07/25:) Vital Signs .PER UNIT PROTOCOL (04/07/25 19:) Review Orders With Adm. (04/07/25 19:) Encourage Activity As Tolerate (04/07/25:) Sodium Chloride Lock (Saline Lock Ns) (04/07/25:00) Docusate Sodium Capsule (Colace Capsule) (04/07/25 19:15) Acetaminophen Tablet (Tylenol Tablet) (04/07/25 19:15) Notify Md Of Changes From Base (04/07/25:) Advance Directive (04/07/25:) Patient Condition (04/07/25 19:06) Allergies (04/07/25 19:06) Hydrocodone-Acet 5/325mg Tab ([place] 5/32 (04/07/25 19:15) Ondansetron Hcl (Zofran) (04/07/25 19:15) Vital Signs Date Time Temp Pulse Resp B/P (MAP) Pulse Ox O2 Delivery O2 Flow Rate FiO2 04/07/25 18:15 114 16 100 Room Air* 0 21 04/07/25 18:14 98.1 111 16 118/70 (86) 95 98.1 04/07/25 16:19 107 16 147/86 (106) 97 04/07/25 14:59 98 04/07/25 14:30 98.0 90 12 137/73 96 98.0 Laboratory Tests Test 04/07/25 15:27 04/07/25 17:38 Lactic Acid Level 2.2 mmol/L (0.4-2.0) *H 0.8 mmol/L (0.4-2.0) White Blood Count 6.2 10^3/uL (4.4-10.8) Medications Medications Dose Ordered Sig/Nilesh Route Start Time Stop Time Status Last Admin Dose Admin Dextrose/Sodium Chloride 1,000 ml @ 75 mls/hr [id number] ONCE IV 04/07/25 17:45 04/08/25 07:04 04/07/25 18:07 Sodium Chloride 500 ml @ 500 mls/hr Q1H ONCE IV 04/07/25 16:30 04/07/25 17:29 DC 04/07/25 16:47 Results Labs Test 04/07/25 17:38 04/07/25 15:27 04/07/25 13:17 Range/Units Lactic Acid Level 0.8 0.4-2.0 mmol/L White Blood Count 6.2 4.4-10.8 10^3/uL Red Blood Count 3.79 L 4.0-5.20 10^6/uL Hemoglobin 11.3 L 12.2-16.2 g/dL Hematocrit 34.0 L 36.0-46.0 % Mean Corpuscular Volume 89.7 80.0-100.0 fL Mean Corpuscular Hemoglobin 29.8 28.0-32.0 pg Mean Corpuscular Hemoglobin Concent 33.2 32.0-36.0 g/dL Red Cell Distribution Width 14.0 11.8-14.3 % Platelet Count 206 140-450 10^3/uL Mean Platelet Volume 8.3 6.9-10.8 fL Neutrophils (%) (Auto) 46.3 37.0-80.0 % Lymphocytes (%) (Auto) 39.8 10.0-50.0 % Monocytes (%) (Auto) 12.7 H 0.0-12.0 % Eosinophils (%) (Auto) 0.8 0.0-7.0 % Basophils (%) (Auto) 0.4 0.0-2.0 % Neutrophils # (Auto) 2.9 1.6-8.6 10 ^3/uL Lymphocytes # (Auto) 2.5 0.4-5.4 10 ^3/uL Monocytes # (Auto) 0.8 0-1.3 10 ^3/uL Eosinophils # (Auto) 0 0-0.8 10 ^3/uL Basophils # (Auto) 0 0-0.2 10 ^3/uL Nucleated Red Blood Cells 0.1 % Sodium Level 141 136-145 mmol/L Potassium Level 3.7 3.5-5.1 mmol/L Chloride Level 105 98-107 mmol/L Carbon Dioxide Level 26 20-31 mmol/L Anion Gap 10 5-15 Blood Urea Nitrogen 43 H 9-23 mg/dL Creatinine 1.68 H 0.550-1.02 mg/dL Glomerular Filtration Rate Calc 36 >90 mL/min BUN/Creatinine Ratio 25.6 H 10.0-20.0 Serum Glucose 93 74-106 mg/dL Calcium Level 9.0 8.7-10.4 mg/dL Troponin I High Sensitivity < 3 L </=34 ng/L Urine Color Yellow Yellow Urine Clarity Clear Clear Urine pH 5.0 5.0-9.0 Urine Specific [place] 1.013 1.001-1.035 Urine Protein Negative Negative Urine Ketones Negative Negative Urine Blood Negative Negative /uL Urine Nitrite Negative Negative Urine Bilirubin Negative Negative Urine Urobilinogen Normal Negative mg/dL Urine Leukocyte Esterase Negative Negative /uL Urine RBC None seen 0 - 4 /hpf Urine Microscopic WBC 1 0-5 /HPF Urine Squamous Epithelial Cells Few <5 /hpf Urine Bacteria None seen None Seen /hpf Urine Glucose Normal Normal mg/dL Primary Diagnosis Hypoglycemia Sepsis Lactic acidosis Shortness of breaths likely due to pneumonia Plan Hypoglycemia episode due to insulin use Reduce Lantus to 20 units for now. He. Per last discharge no patient was discharged with 20 units b.i.d. Start ceftriaxone and azithromycin for possible pneumonia Check sputum culture, blood culture, pro count, CRP IV fluids D5 Resume home meds Ultrasound kidneys for MARLYN on CKD versus CKD Full code Regular diet Resume Xarelto PPI for GI prophylaxis Plan discussed with: Patient Problems List: (1) CKD (chronic kidney disease) (2) Hypoglycemia (3) Hypoglycemia Status: Acute ANISHA GUNN MD Apr 07, 2025 17:32
[2025-04-07] MEDS: D5W/SOD CHLO 0.9% 1,000 ML IV ONE (18:07)
[2025-04-07 18:15] VITALS: PULSE 114; RESP 16; O2SAT 100
[2025-04-07] MEDS ORDERED: ACETAMINOPHEN 325 MG TAB PO PRN (19:15)
[2025-04-07] MEDS ORDERED: DEXTROSE (50%) 50ML SYRG IV PRN (19:15)
[2025-04-07] MEDS ORDERED: DOCUSATE SOD 100 MG CAP PO PRN (19:15)
--- NOTE | 2025-04-07 19:39 | DVH ---
CHEST RADIOGRAPH Indication: sob, cough Technique: Single frontal view of the chest was obtained Comparison: None FINDINGS: Lines and Tubes: None Lungs: No focal consolidation. Pleura: No effusion. No pneumothorax. Cardiomediastinal contours: Unremarkable Bones: No acute osseous abnormality. IMPRESSION: No acute cardiopulmonary disease.
--- NOTE | 2025-04-07 19:57 | DVH ---
INDICATION: sravanthi on ckd TECHNIQUE: Multiple real-time sonographic images of the kidneys and bladder were obtained. COMPARISON: US ABDOMEN LIMITED on DOS: 01/27/25 FINDINGS: RIGHT kidney measures 10.7 cm in length. No hydronephrosis. LEFT kidney measures 8.2 cm in length. No hydronephrosis. No large intraluminal masses are seen in the bladder. Bladder wall measures 1.3 mm Prevoid bladder volume 320 mL There is no postvoid image IMPRESSION: 1. No hydronephrosis on the right or the left 2. No postvoid image of the bladder.
[2025-04-07] MEDS: cefTRIAXone 1GM/50ML D5W 50 ML IV SCH (21:47)
[2025-04-07] MEDS ORDERED: INSULIN LANTUS (GLARGINE) 1 /0.01ml (100units/ml) SC SCH (22:00)
[2025-04-07] MEDS: ATORVASTATIN 20 MG TAB PO SCH (22:11)
[2025-04-07] MEDS: SODIUM CHLOR 0.9% PF (SALINE LOCK) 10ML VIAL/SYR IV SCH (22:11)
[2025-04-07] MEDS: RIVAROXABAN 15 MG TAB PO SCH (22:11)
[2025-04-07] MEDS: ACCU-CHEK COMFORT CURVE STRIP VI SCH (22:11)
[2025-04-07] MEDS: AMITRIPTYLINE HCL 25 MG TAB PO SCH (22:11)
[2025-04-07] MEDS: InsuLIN REG 1unit/0.01ml Soln (100units/ml) SC SCH (22:16)
[2025-04-07] MEDS: INSULIN LANTUS (GLARGINE) 1 /0.01ml (100units/ml) SC SCH (22:17)
[2025-04-07] MEDS: AZITHROMYCIN 500MG/ 250ML 250 ML IV SCH (22:27)
[2025-04-07] MEDS: ONDANSETRON HCL 4 MG/2 ML VIAL IV PRN (22:35)
[2025-04-08 04:11] LABS: Hematocrit 33.1 % (36.0-46.0); Hemoglobin 11.0 g/dL (12.2-16.2); Mean Corpuscular Hemoglobin 29.9 pg (28.0-32.0); Mean Corpuscular Volume 90.0 fL (80.0-100.0); Nucleated Red Blood Cells % 0.1 %
[2025-04-08 04:23] LABS: Albumin 4.1 g/dL (3.2-4.8); Anion Gap 9 (5-15); BUN/Creatinine Ratio 17.5 (10.0-20.0); Bilirubin, Total 0.4 mg/dL (0.2-1.0); Calcium 9.1 mg/dL (8.7-10.4); Carbon Dioxide 28 mmol/L (20-31); Glucose 85 mg/dL (74-106); Potassium 4.7 mmol/L (3.5-5.1); Sodium 145 mmol/L (136-145); Total Protein 6.4 g/dL (5.7-8.2)
[2025-04-08 04:31] LABS: Alanine Aminotransferase 55 U/L (7-40); Alkaline Phosphatase 144 U/L (46-116); Blood Urea Nitrogen 24 mg/dL (9-23); Chloride 108 mmol/L (98-107)
[2025-04-08] MEDS: BUMETANIDE 1 MG TAB PO SCH (07:03)
[2025-04-08] MEDS: GABAPENTIN 300 MG CAP PO SCH (07:08)
[2025-04-08 08:50] VITALS: BP 101/70; PULSE 86; RESP 16; TEMP 99; O2SAT 96
[2025-04-08] MEDS: ALLOPURINOL 100 MG TAB PO SCH (11:14)
[2025-04-08] MEDS: HYDROcodone-ACET 5/325MG TAB PO PRN (12:08)
[2025-04-08 13:00] VITALS: BP 102/60; PULSE 99; RESP 18; TEMP 99; O2SAT 95
[2025-04-08 15:39] VITALS: PULSE 68; RESP 17
[2025-04-08 17:16] VITALS: BP 112/71; PULSE 103; RESP 20; TEMP 98.7; O2SAT 98
--- NOTE | 2025-04-08 19:30 | DVHPN2 ---
[facility] Patient is seen and evaluated along with the nurse and general maintenance technician at bedside. She is alert and awake no complaints at present. Says her weakness is improving. Changes from previous H/P or p: No Changes Objective Vitals Vital Signs Date Time Temp Pulse Resp B/P (MAP) Pulse Ox O2 Delivery O2 Flow Rate FiO2 04/08/25 17:16 98.7 103 20 112/71 (85) 98 98.7 04/08/25 15:39 Room Air* 0 21 Intake/Output Intake and Output 04/08/25 07:00 Intake Total 1700 ml Balance 1700 ml Intake IV Total 1700 ml Exam Alert awake oriented times three. HEENT neck supple no JVD. Heart regular rate and rhythm S1-S2. Lungs fair air movement without rales wheezes. Abdomen soft nontender positive bowel sounds. Extremities no edema positive pulses Medications Current Medications Medications Dose Ordered Sig/Nilesh Route Start Time Stop Time Status Last Admin Dose Admin Ceftriaxone Sodium 50 ml @ 100 mls/hr DAILY@09 IV 04/07/25 21:26 04/08/25 11:13 100 MLS/HR Azithromycin 250 ml @ 125 mls/hr DAILY IV 04/07/25 21:27 04/08/25 10:00 125 MLS/HR Allopurinol 100 mg DAILY PO 04/08/25 10:00 04/08/25 11:14 100 MG Amitriptyline HCl 50 mg HS PO 04/07/25 22:00 04/07/25 22:11 50 MG Rivaroxaban 15 mg BID PO 04/07/25 22:00 04/08/25 11:14 15 MG Atorvastatin Calcium 80 mg HS PO 04/07/25 22:00 04/07/25 22:11 80 MG Bumetanide 1 mg QAM PO 04/08/25 07:00 04/08/25 07:03 1 MG Duloxetine HCl 60 mg DAILY PO 04/08/25 10:00 04/08/25 11:14 60 MG Gabapentin 600 mg TID PO 04/08/25 07:03 04/08/25 14:22 600 MG Sodium Chloride 10 ml Q8HR IV 04/07/25 22:00 04/08/25 14:13 10 ML Docusate Sodium 100 mg BIDPRN PRN PO 04/07/25 19:15 Acetaminophen 650 mg Q6HP PRN PO 04/07/25 19:15 Acetaminophen/ Hydrocodone Bitart 1 tab Q4HP PRN PO 04/07/25 19:15 04/08/25 12:08 1 TAB Ondansetron HCl 4 mg Q4HP PRN IV 04/07/25 19:15 04/07/25 22:35 4 MG Diagnostic Test (Pha) 1 strip ACHS 04/07/25 22:00 04/08/25 16:42 1 STRIP Insulin Human Regular ACHS SC 04/07/25 22:00 04/07/25 22:16 2 UNITS Dextrose 50 ml UD PRN IV 04/07/25 19:15 Insulin Glargine 15 units HS SC 04/07/25 22:00 04/07/25 22:17 15 UNITS Laboratory Results Laboratory Tests 04/08/25 03:47 Chemistry Test 04/08/25 03:47 Albumin 4.1 g/dL (3.2-4.8) Calcium Level 9.1 mg/dL (8.7-10.4) Total Protein 6.4 g/dL (5.7-8.2) LFT Test 04/08/25 03:47 Alanine Aminotransferase (ALT) 55 U/L (7-40) H Alkaline Phosphatase 144 U/L (46-116) H Aspartate Amino Transferase (AST) 38 U/L (13-40) Total Bilirubin 0.4 mg/dL (0.2-1.0) Urinalysis Test 04/07/25 13:17 Urine Color Yellow (Yellow) Urine Clarity Clear (Clear) Urine pH 5.0 (5.0-9.0) Urine Specific [place] 1.013 (1.001-1.035) Urine Protein Negative (Negative) Urine Ketones Negative (Negative) Urine Blood Negative /uL (Negative) Urine Nitrite Negative (Negative) Urine Bilirubin Negative (Negative) Urine Urobilinogen Normal mg/dL (Negative) Urine Leukocyte Esterase Negative /uL (Negative) Urine RBC None seen /hpf (0 - 4) Urine Microscopic WBC 1 /HPF (0-5) Urine Squamous Epithelial Cells Few /hpf (<5) Urine Bacteria None seen /hpf (None Seen) Urine Glucose Normal mg/dL (Normal) Assessment/Plan Assessment/Plan Lightheadedness/dizziness due to hypoglycemic episode resolved Diabetes mellitus type 2 General physical deconditioning We will have physical therapy evaluation. We will cut down the Lantus dose. Check orthostatic blood pressure. Chest x-ray is normal therefore I will DC IV antibiotics. Continue rest of supportive care and treatment and further clinical management per clinical course. Discussed with the general maintenance technician/nurse at bedside regarding care plan with the patient. She verbalized understanding of care plan and agree with the current management. Plan discussed with: Patient, Other My Orders Orders - JAVED CORTEZ MD Procedure Category Date Status Time Pt Request For Service PT 04/08/25 Verified 19:26 * Filing Or Registry Clerk CONS 04/08/25 Verified Consult Date of Service: Apr 08, 2025 Billing Provider: JAVED CORTEZ MD Common Visit Codes: [id number] INP/OBS CARE(MOD) JAVED CORTEZ MD Apr 08, 2025 19:30
[2025-04-08 21:00] VITALS: BP 119/70; PULSE 112; RESP 18; TEMP 98.6; O2SAT 97
[2025-04-09] VITALS (7 sets, daily range): BP systolic 105–146; BP diastolic 66–90; PULSE 68–112; RESP 18–20; TEMP 98.1–98.8; O2SAT 93–100
[2025-04-09 06:40] LABS: Hematocrit 33.0 % (36.0-46.0); Hemoglobin 11.1 g/dL (12.2-16.2); Mean Corpuscular Hemoglobin 30.2 pg (28.0-32.0); Mean Corpuscular Volume 89.4 fL (80.0-100.0); Nucleated Red Blood Cells % 0.1 %
[2025-04-09 07:02] LABS: Albumin 4.1 g/dL (3.2-4.8); Anion Gap 6 (5-15); BUN/Creatinine Ratio 17.3 (10.0-20.0); Bilirubin, Total 0.4 mg/dL (0.2-1.0); Blood Urea Nitrogen 23 mg/dL (9-23); Calcium 9.2 mg/dL (8.7-10.4); Chloride 106 mmol/L (98-107); Glucose 87 mg/dL (74-106); Potassium 4.3 mmol/L (3.5-5.1); Sodium 143 mmol/L (136-145); Total Protein 6.5 g/dL (5.7-8.2)
[2025-04-09 07:07] LABS: Alanine Aminotransferase 47 U/L (7-40); Alkaline Phosphatase 136 U/L (46-116); Carbon Dioxide 31 mmol/L (20-31)
--- NOTE | 2025-04-09 13:59 | ECG ---
[facility] Test Date: 2025-04-07 Test Time: 14:59:31 Pat Name: PRATIMA SINGH Department: [facility] ED Patient ID: [id number] Room: 0286 B Gender: F Quilting Supervisor: isaias : 1970 Requested By: ANILA LEVINE Order Number: [id number] Reading MD: Waldemar Palmer Measurements Intervals [place] Rate: 98 P: 53 NE: 161 QRS: 32 QRSD: 85 T: 53 QT: 344 QTc: 440 Interpretive Statements Sinus rhythm Electronically Signed On 04-11-2025 14:31:59 PDT by Waldemar Palmer Please click the below link to view image of tracing.
--- NOTE | 2025-04-09 17:08 | DVHDS2 ---
Discharge Summary Date of Admission Apr 07, 2025 at 19:06 Date of Discharge: Apr 09, 2025 Labs/Diagnostic Data: Laboratory Results Test 04/09/25 11:09 04/09/25 05:58 04/07/25 17:38 04/07/25 15:27 POC Glucose 121 mg/dl (70-106) White Blood Count 6.4 10^3/uL (4.4-10.8) Red Blood Count 3.69 10^6/uL (4.0-5.20) Hemoglobin 11.1 g/dL (12.2-16.2) Hematocrit 33.0 % (36.0-46.0) Mean Corpuscular Volume 89.4 fL (80.0-100.0) Mean Corpuscular Hemoglobin 30.2 pg (28.0-32.0) Mean Corpuscular Hemoglobin Concent 33.7 g/dL (32.0-36.0) Red Cell Distribution Width 13.7 % (11.8-14.3) Platelet Count 197 10^3/uL (140-450) Mean Platelet Volume 8.5 fL (6.9-10.8) Neutrophils (%) (Auto) 41.3 % (37.0-80.0) Lymphocytes (%) (Auto) 47.6 % (10.0-50.0) Monocytes (%) (Auto) 8.1 % (0.0-12.0) Eosinophils (%) (Auto) 2.7 % (0.0-7.0) Basophils (%) (Auto) 0.3 % (0.0-2.0) Neutrophils # (Auto) 2.7 10 ^3/uL (1.6-8.6) Lymphocytes # (Auto) 3.1 10 ^3/uL (0.4-5.4) Monocytes # (Auto) 0.5 10 ^3/uL (0-1.3) Eosinophils # (Auto) 0.2 10 ^3/uL (0-0.8) Basophils # (Auto) 0 10 ^3/uL (0-0.2) Nucleated Red Blood Cells 0.1 % Sodium Level 143 mmol/L (136-145) Potassium Level 4.3 mmol/L (3.5-5.1) Chloride Level 106 mmol/L (98-107) Carbon Dioxide Level 31 mmol/L (20-31) Anion Gap 6 (5-15) Blood Urea Nitrogen 23 mg/dL (9-23) Creatinine 1.33 mg/dL (0.550-1.02) Glomerular Filtration Rate Calc 48 mL/min (>90) BUN/Creatinine Ratio 17.3 (10.0-20.0) Serum Glucose 87 mg/dL (74-106) Calcium Level 9.2 mg/dL (8.7-10.4) Total Bilirubin 0.4 mg/dL (0.2-1.0) Aspartate Amino Transferase (AST) 31 U/L (13-40) Alanine Aminotransferase (ALT) 47 U/L (7-40) Alkaline Phosphatase 136 U/L (46-116) Total Protein 6.5 g/dL (5.7-8.2) Albumin 4.1 g/dL (3.2-4.8) Lactic Acid Level 0.8 mmol/L (0.4-2.0) Troponin I High Sensitivity < 3 ng/L (</=34) C-Reactive Protein High Sensitivity 0.13 mg/dL (<1.0) Test 04/07/25 13:17 Urine Color Yellow (Yellow) Urine Clarity Clear (Clear) Urine pH 5.0 (5.0-9.0) Urine Specific [place] 1.013 (1.001-1.035) Urine Protein Negative (Negative) Urine Ketones Negative (Negative) Urine Blood Negative /uL (Negative) Urine Nitrite Negative (Negative) Urine Bilirubin Negative (Negative) Urine Urobilinogen Normal mg/dL (Negative) Urine Leukocyte Esterase Negative /uL (Negative) Urine RBC None seen /hpf (0 - 4) Urine Microscopic WBC 1 /HPF (0-5) Urine Squamous Epithelial Cells Few /hpf (<5) Urine Bacteria None seen /hpf (None Seen) Urine Glucose Normal mg/dL (Normal) Other Laboratory Tests 04/09/25 05:58 Brief Hx & Hospital Course: This is a 54-year-old female with past medical history of hypertension, type 2 diabetes mellitus, CVA with left-sided weakness, presented to the ED via EMS with a chief complaint of generalized weakness, fatigue and low blood sugar 53 prior to this visit. According to the EMS the cardiac off because of the low blood sugar and on route to the hospital gave D10 25, 1 L normal saline bolus and in the ED blood sugar raised to 162. The patient complains of generalized weakness, fatigue and right lower quadrant abdominal pain. She denies fever, chills, shortness of breath, diffuse abdominal pain, nausea, vomiting, dysuria, hematuria or any change in bowel habit. She is admitted and evaluated. Her workup in the hospitalist essentially normal he. Her blood sugars are stable. [place] her symptoms were due to low blood sugar. Patient underwent counseling and educated regarding checking her blood sugars and maintain between 70 and 150. She is advised to follow up with her PCP to adjust her insulin should he have any blood sugars that are below 70 or above 200. Otherwise given the patient is clinically feeling better her workup being normal in the hospital it is felt she could be safely discharged home. I have talked with the patient regarding hospital diagnosis, treatment she received, discharge medications, discharge instructions and follow-up plan of care with the color coater/her nurse at bedside. She has verbalized understanding of these and agree with the care plan as outlined Condition at Discharge: Stable Final Diagnosis/Problems List Lightheadedness/dizziness due to hypoglycemic episode resolved Diabetes mellitus type 2 General physical deconditioning Discharge Disposition: Home Discharge Instruct/Medications Diet: Consistent carbohydrate, Cardiac 2g Na,low cholest Activity: No Restrictions, As Tolerated Follow Up/Referral: Primary care physician to adjust your insulin to keep blood sugars between 70 and 150 Medications: Home medications as you were taking Scheduled Allopurinol (Zyloprim Tablet), 100 MG PO DAILY, (Reported) Amitriptyline Hcl (Amitriptyline Hcl), 50 MG PO HS, (Reported) Atorvastatin Calcium (Atorvastatin Calcium), 1 TAB PO QP, (Reported) Bumetanide (Bumetanide), 1 MG PO QAM, (Reported) Ciprofloxacin Hcl (Ciprofloxacin Hcl), 750 MG PO DAILY Duloxetine Hcl (Cymbalta), 60 MG PO DAILY, (Reported) Gabapentin (Gabapentin), 1,000 MG PO TID, (Reported) Rivaroxaban (Xarelto Tablet), 15 MG PO BID, (Reported) Trazodone Hcl (Trazodone Hcl), 50 MG PO QPM, (Reported) Miscellaneous Medications Bumetanide (Bumex), (Reported) Cholecalciferol (D3), 50 MCG PO, (Reported) Epa Ethyl Carmen (Vascepa), 2 GM OR, (Reported) Ferrous Sulfate (Ferosul), 325 MG PO, (Reported) Insulin Glargine (Basaglar Kwikpen), 100 UNIT SC, (Reported) Insulin Lispro (Human) (Humalog), 100 UNIT SC, (Reported) Semaglutide (Ozempic), 2 MG SC, (Reported) Discharge Statement: "Patient was advised to return to the ER or call 911 if any headaches, dizziness, shortness of breath, chest pain, abdominal pain, bleeding, fevers, or worsening of medical condition. Patient was counseled about treatment plan, medications, possible side effects, patientverbalized understanding. All questions were answered to the best of my ability. This discharge took greater then 30 minutes in planning, reviewing documentation, counseling the patient, and discussing with other team members." ASSESSMENT ASSESSMENT Assessment Lightheadedness/dizziness due to hypoglycemic episode resolved Diabetes mellitus type 2 General physical deconditioning Date of Service: Apr 09, 2025 Billing Provider: JAVED CORTEZ MD Common Visit Codes: [id number] DISCH DAY <30MIN JAVED CORTEZ MD Apr 09, 2025 17:08
== END 2025-04-09 19:50 | disposition home or self-care (01) | DRG 420 ==
LOC: ER 14:26 → EDBD 14:26 → EDUNIT# 14:26 → OVERFLOW 19:06 → WEST WING 04-08 15:25
PROVIDERS: ADMIT Internal Medicine; ATTEND Internal Medicine
DX: E11.649 Type 2 diabetes mellitus with hypoglycemia without coma (principal); E11.22 Type 2 diabetes mellitus with diabetic chronic kidney disease; I69.354 Hemiplegia and hemiparesis following cerebral infarction affecting left non-dominant side; N18.9 Chronic kidney disease, unspecified; I12.9 Hypertensive chronic kidney disease with stage 1 through stage 4 chronic kidney disease, or unspecified chronic kidney disease; F41.9 Anxiety disorder, unspecified; Z79.2 Long term (current) use of antibiotics; Z79.4 Long term (current) use of insulin; Z79.899 Other long term (current) drug therapy; Z79.01 Long term (current) use of anticoagulants; Z90.49 Acquired absence of other specified parts of digestive tract; Z98.891 History of uterine scar from previous surgery; Z82.49 Family history of ischemic heart disease and other diseases of the circulatory system
CPT/HCPCS: 36415; 71045; 76775; 80048; 80053; 81001; 82962; 83605; 84484; 85025; 86141; 87040; 93005; 96360; 97163; G0378; J1815; J2405